=== PATIENT | female | born 1985 | race Caucasian/White ===

== ENCOUNTER → 2016-10-08 | Outpatient (CLI) | payer OTHER ==
[~2016-10-08] MED LIST: ABL10 PO; AMT50 PO; B-CO1CAP3 PO; CARB200T PO; FLUD0.1T PO; IND/25 PO; LACO50TA PO; MRLP17 PO; NRN100 PO; PRT40 PO; VENL150T33 PO
--- NOTE | 2016-10-08 14:52 | DIAGNOSTIC IMAGING REPORT ---
ABDOMINAL ULTRASOUND COMPLETE HISTORY: Abnormal lab values ABNORMAL FINDINGS IN BLOOD CHEMISTRY. COMPARISON: 03/11/2016 FINDINGS: Pancreas: The pancreas demonstrates a normal echotexture. Liver: Unremarkable. Gallbladder: Surgically removed CBD: 4 mm Kidneys: No hydronephrosis. Spleen: Normal in size. Aorta: Normal in caliber. IVC: Patent. IMPRESSION: Prior cholecystectomy. Otherwise normal study. Electronically signed by: Man Pantoja M.D. 10/08/2016 2:50 PM Dictated Date/Time: 10/08/2016 2:49 PM
== END | disposition home or self-care (01) ==
LOC: C.ULTR 07:19
PROVIDERS: ATTEND Internal Medicine Gastroenterology
DX: R79.89 Other specified abnormal findings of blood chemistry (principal)

== ENCOUNTER 2016-10-29 12:44 | Observation (INO) | payer OTHER ==
[~2016-10-29] VITALS: Ht 167.6 cm; Wt 81.3 kg
[~2016-10-29 12:44] MED LIST changes: -IND/25 PO; -LACO50TA PO; -MRLP17 PO; -PRT40 PO
[2016-10-29] MEDS ORDERED: ONDANSETRON INJ 2 MG/ML 2 ML VIAL IV STA ×2 (13:15→14:59)
[2016-10-29] MEDS ORDERED: SODIUM CHLORIDE 0.9% 1000ML 2,000 ML IV STA (13:15)
[2016-10-29] MEDS ORDERED: PROCHLORPERAZINE 5 MG/ML 2 ML VIAL IV STA (13:15)
[2016-10-29] MEDS ORDERED: DiphenhydrAMINE HCL 50 MG/ML VIAL IV STA (13:15)
--- NOTE | 2016-10-29 13:22 | EMERGENCY ROOM VISIT NOTE ---
History Report prepared by Marieibsindhu: Anum Parrish Under the Supervision of: Dr. Inderjit Guillen M.D. First contact with patient: 13:05 Chief Complaint: VOMITING Stated Complaint: VOMITING, PAIN IN SIDES Nursing Triage Summary: Pt states she's been vomiting x 1 week, having pain in back and sides from throwing up. Tegretol levels were to high, hospitalized until October 13. Keppra started in hospital, and then PO at discharge. Couldn't keep it down since she was vomiting. Vimpat started 3 days but can't keep it down. Having some twitching in hands and legs intermittently. Last diarrhea 2 days ago, no BM since. History of Present Illness The patient is a 31 year old female who presents to the Emergency Room with complaints of persistent vomiting for the past 1 week. The patient has a history of both seizures and cyclic vomiting syndrome and notes she has undergone some recent seizure medication changes. Her Tegretol levels were found to be elevated, so she was hospitalized on October 13. Keppra was started while she was in the hospital and she was prescribed it PO at discharge. She was unable to keep the Keppra down due to her recent increased vomiting. The patient also complains of increased back pain from the amount of vomiting she has experienced. She admits to some recent diarrhea, but states she has not had a BM in 2 days now. She denies any fevers or urinary symptoms. 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 A total of 10 systems reviewed and were otherwise negative. Past Medical & Surgical Medical Problems: (1) Arthritis (2) Estevez's esophagus (3) Bipolar 1 disorder (4) Cyclic vomiting syndrome (5) Fibromyalgia (6) GERD (gastroesophageal reflux disease) (7) H/o cervical disc displacement (8) Intractable vomiting (9) Nausea & vomiting (10) Seizure disorder Surgical Problems: (1) H/O colonoscopy (2) H/O EGD (3) H/O toe surgery (4) History of cholecystectomy (5) S/P cholecystectomy (6) S/P ear surgery (7) S/P tonsillectomy and adenoidectomy Family History Cancer MOTHER (skin CA) Diabetes mellitus FATHER FH: kidney disease FH: seizures Heart disease Lung disease Social History Smoking Status: Former Smoker Alcohol Use: none Drug Use: none Marital Status: single Housing Status: lives with family Occupation Status: unemployed Current/Historical Medications Scheduled Amitriptyline Hcl (Elavil), 50 MG PO HS Aripiprazole (Abilify), 20 MG PO DAILY Fludrocortisone Acetate (Fludrocortisone Acetate), 0.1 MG PO DAILY Indomethacin (Indocin), 25 MG PO DAILY Lacosamide (Vimpat), 1 TAB PO BID Venlafaxine Hcl (Venlafaxine Hcl Er), 150 MG PO BID Allergies Coded Allergies: Gluten (Verified Allergy, Unknown, unknown, 10/29/16) Promethazine (Verified Adverse Reaction, Unknown, CAUSED SEIZURE, 10/29/16) Physical Exam Vital Signs Date Time Temp Pulse Resp B/P (MAP) Pulse Ox O2 Delivery O2 Flow Rate FiO2 10/29/16 18:50 92 18 102/74 100 Room Air 10/29/16 17:56 94 20 100/61 98 Room Air 10/29/16 16:00 101 20 101/65 97 Room Air 10/29/16 14:08 98 16 104/64 96 Room Air 10/29/16 12:49 36.5 78 16 105/75 98 Room Air Physical Exam GENERAL: Patient is in no acute distress. HEENT: No acute trauma, normocephalic atraumatic, mucous membranes are dry, no nasal congestion, no scleral icterus. NECK: No stridor, no adenopathy, no meningismus, trachea is midline. LUNGS: Clear to auscultation bilaterally, no wheeze, no rhonchi, breath sounds equal. HEART: Without murmurs gallops or rubs, regular rate and rhythm. ABDOMEN: Soft, nontender, bowel sounds positive, no hernias, no peritonitis. EXTREMITIES: No cyanosis or edema, full range of motion of all the joints without pain or difficulty, no signs for acute trauma. NEUROLOGIC: Oriented x 3, no acute motor or sensory deficits, no focal weakness. SKIN: No rash, no jaundice, no diaphoresis. Medical Decision & Procedures ER Provider Diagnostic Interpretation: X-ray results as stated below per interpretation by me and the radiologist: ABDOMEN 2VIEW W/PA CHEST RTN CLINICAL HISTORY: nv pain. Nausea. COMPARISON STUDY: 03/09/2016 FINDINGS: The soft tissues, psoas shadows, renal outlines and intestinal gas pattern appear normal. There is no evidence for bowel obstruction. There is no evidence for free intraperitoneal air. No abnormal abdominal calcifications are seen. A frontal view of the chest was performed and is unremarkable. Minimal nonobstructive ileus. IMPRESSION: 1. Negative chest. 2. Minimal/mild nonobstructive ileus. Electronically signed by: Man Pantoja M.D. 10/29/2016 2:34 PM Laboratory Results 10/29/16 13:58 Red Blood Count 4.95, Mean Corpuscular Volume 86.7, Mean Corpuscular Hemoglobin 29.9, Mean Corpuscular Hemoglobin Concent 34.5, Mean Platelet Volume 9.3, Neutrophils (%) (Auto) 53.8, Lymphocytes (%) (Auto) 36.6, Monocytes (%) (Auto) 7.3, Eosinophils (%) (Auto) 1.5, Basophils (%) (Auto) 0.8, Neutrophils # (Auto) 2.13, Lymphocytes # (Auto) 1.45, Monocytes # (Auto) 0.29, Eosinophils # (Auto) 0.06, Basophils # (Auto) 0.03 10/29/16 13:58 Test 10/29/16 13:05 10/29/16 13:58 Urine Color DK YELLOW Urine Appearance TURBID (CLEAR) Urine pH 6.0 (4.5-7.5) Urine Specific [place] 1.026 (1.000-1.030) Urine Protein TRACE (NEG) Urine Glucose (UA) NEG (NEG) Urine Ketones 2+ (NEG) Urine Occult Blood 2+ (NEG) Urine Nitrite NEG (NEG) Urine Bilirubin NEG (NEG) Urine Urobilinogen NEG (NEG) Urine Leukocyte Esterase NEG (NEG) Urine WBC (Auto) 5-10 /hpf (0-5) Urine RBC (Auto) 0-4 /hpf (0-4) Urine Hyaline Casts (Auto) 10-30 /lpf (0-5) Urine Epithelial Cells (Auto) >30 /lpf (0-5) Urine Bacteria (Auto) 1+ (NEG) White Blood Count 3.96 K/uL (4.8-10.8) Red Blood Count 4.95 M/uL (4.2-5.4) Hemoglobin 14.8 g/dL (12.0-16.0) Hematocrit 42.9 % (37-47) Mean Corpuscular Volume 86.7 fL (80-100) Mean Corpuscular Hemoglobin 29.9 pg (25-34) Mean Corpuscular Hemoglobin Concent 34.5 g/dl (32-36) Platelet Count 303 K/uL (130-400) Mean Platelet Volume 9.3 fL (7.4-10.4) Neutrophils (%) (Auto) 53.8 % Lymphocytes (%) (Auto) 36.6 % Monocytes (%) (Auto) 7.3 % Eosinophils (%) (Auto) 1.5 % Basophils (%) (Auto) 0.8 % Neutrophils # (Auto) 2.13 K/uL (1.4-6.5) Lymphocytes # (Auto) 1.45 K/uL (1.2-3.4) Monocytes # (Auto) 0.29 K/uL (0.11-0.59) Eosinophils # (Auto) 0.06 K/uL (0-0.5) Basophils # (Auto) 0.03 K/uL (0-0.2) RDW Standard Deviation 40.9 fL (36.4-46.3) RDW Coefficient of Variation 12.8 % (11.5-14.5) Immature Granulocyte % (Auto) 0.0 % Immature Granulocyte # (Auto) 0.00 K/uL (0.00-0.02) Anion Gap 11.0 mmol/L (3-11) Est Creatinine Clear Calc Drug Dose 114.7 ml/min Estimated GFR () 121.4 Estimated GFR (Non- 104.7 BUN/Creatinine Ratio 7.3 (10-20) Calcium Level 8.8 mg/dl (8.5-10.1) Magnesium Level 2.3 mg/dl (1.8-2.4) Total Bilirubin 0.3 mg/dl (0.2-1) Aspartate Amino Transf (AST/SGOT) 26 U/L (15-37) Alanine Aminotransferase (ALT/SGPT) 23 U/L (12-78) Alkaline Phosphatase 187 U/L (45-117) Total Protein 7.2 gm/dl (6.4-8.2) Albumin 3.2 gm/dl (3.4-5.0) Globulin 4.0 gm/dl (2.5-4.0) Albumin/Globulin Ratio 0.8 (0.9-2) Laboratory results reviewed by me. Medications Administered Medications (Trade) Dose Ordered Sig/Tico Route Start Time Stop Time Status Last Admin Dose Admin Sodium Chloride 2,000 ml @ 999 mls/hr Q2H1M STAT IV 10/29/16 13:15 10/29/16 15:15 DC 10/29/16 14:08 999 MLS/HR Ondansetron HCl (Zofran Inj) 4 mg NOW STAT IV 10/29/16 13:15 10/29/16 13:17 DC 10/29/16 14:09 4 MG Prochlorperazine Edisylate (Compazine Inj) 10 mg NOW STAT IV 10/29/16 13:15 10/29/16 13:17 DC 10/29/16 14:09 10 MG Diphenhydramine HCl (Benadryl Inj) 50 mg NOW STAT IV 10/29/16 13:15 10/29/16 13:17 DC 10/29/16 14:09 50 MG Ondansetron HCl (Zofran Inj) 4 mg NOW STAT IV 10/29/16 14:59 10/29/16 15:00 DC 10/29/16 15:11 4 MG Lacosamide 50 mg/ Sodium Chloride 55 ml @ 55 mls/hr NOW STAT IV 10/29/16 15:57 10/29/16 16:56 DC 10/29/16 16:33 55 MLS/HR ED Course 1312: The patient was evaluated in room C2. A complete history and physical exam was performed. 1315: Benadryl 50 mg IV, Compazine 10 mg IV, Zofran 4 mg IV, NSS 2000 ml @ 999 mls/hr IV. 1545: I reevaluated the patient. She is resting comfortably. I discussed my recommendation that she remain in the hospital for further evaluation and management and she verbalized complete understanding and agreement. 1557: Lacosamide 50 mg/NSS 55 ml @ 55 mls/hr IV. 1559: Zofran 4 mg IV. 1630: I discussed the patients case with Dr. Heart, [facility] Hospitalist. The patient will be further evaluated. Medical Decision Medication Reconciliation: I attest that I have personally reviewed the patient' s current medication list. Blood Pressure Screening: Patient was found to have normal blood pressure on screening and does not require follow-up. The differential diagnoses considered include dehydration, electrolyte imbalance , anemia, viral illness, cyclic vomiting syndrome, medication reaction, UTI and bowel obstruction. There is no leukocytosis or concerning anemia. No significant electrolyte abnormality, kidney failure or hepatitis. Urinalysis does not show infection but more so contamination and dehydration. Obstruction series shows no pneumonia, free air or bowel obstruction. An ileus was noted. On exam, the patient was not febrile or toxic. The patient received IV Zofran, IV Compazine and IV Benadryl. She was given IV saline. She was still nauseated and required a second dose of IV Zofran. Her her nausea did persist and she was unable to tolerate oral intake. Given the findings of ileus, given the difficulty controlling her symptoms, I think admission/observation was warranted. She has not been able to take her regular meds including her seizure meds. I did give her a 50 mg dose of IV Vimpat, this is her current antiseizure medication. I spoke to case management , the on-call hospitalist was consulted. Consults Time Called: 1540 Consulting Physician: Dr. Heart, [facility] Hospitalist Returned Call: 1630 I discussed the patients case with Dr. Heart, [facility] Hospitalist. The patient will be further evaluated. Impression Primary Impression: Ileus Additional Impressions: Vomiting Dehydration History of seizure Scribe Attestation The scribe's documentation has been prepared under my direction and personally reviewed by me in its entirety. I confirm that the note above accurately reflects all work, treatment, procedures, and medical decision making performed by me. Departure Information Dispostion Being Evaluated By Hospitalist Referrals Mirtha Arellano M.D. (PCP) Patient Instructions My [facility] Problem Qualifiers
[2016-10-29] MEDS ORDERED: LACO50TA PO (13:23)
[2016-10-29] MEDS ORDERED: IND/25 PO (13:23)
[2016-10-29 14:07] LABS: BASO % 0.8 %; BASO ABS # 0.03 K/uL (0-0.2); COMPLETE YES; EOS % 1.5 %; HEMATOCRIT 42.9 % (37-47); LYMPH % 36.6 %; LYMPH ABS # 1.45 K/uL (1.2-3.4); MEAN CELL VOLUME 86.7 fL (80-100); MEAN CORPUSCULAR HEMOGLOBIN 29.9 pg (25-34); MEAN CORPUSCULAR HGB CONC 34.5 g/dl (32-36); MEAN PLATELET VOLUME 9.3 fL (7.4-10.4); MONO % 7.3 %; NEUT % 53.8 %; PLATELET COUNT 303 K/uL (130-400); RED BLOOD COUNT 4.95 M/uL (4.2-5.4); WHITE BLOOD COUNT 3.96 K/uL (4.8-10.8)
[2016-10-29 14:30] LABS: BUN/CREATININE RATIO 7.3 (10-20); CREATININE 0.75 mg/dl (0.60-1.20); MAGNESIUM 2.3 mg/dl (1.8-2.4); POTASSIUM 3.8 mmol/L (3.5-5.1)
[2016-10-29 14:33] LABS: ALB/GLOB RATIO 0.8 (0.9-2)
--- NOTE | 2016-10-29 14:35 | DIAGNOSTIC IMAGING REPORT ---
ABDOMEN 2VIEW W/PA CHEST RTN CLINICAL HISTORY: nv pain. Nausea. COMPARISON STUDY: 03/09/2016 FINDINGS: The soft tissues, psoas shadows, renal outlines and intestinal gas pattern appear normal. There is no evidence for bowel obstruction. There is no evidence for free intraperitoneal air. No abnormal abdominal calcifications are seen. A frontal view of the chest was performed and is unremarkable. Minimal nonobstructive ileus. IMPRESSION: 1. Negative chest. 2. Minimal/mild nonobstructive ileus. Electronically signed by: Man Pantoja M.D. 10/29/2016 2:34 PM Dictated Date/Time: 10/29/2016 2:34 PM
[2016-10-29 15:05] LABS: URINE APPEARANCE TURBID (CLEAR); URINE COLOR DK YELLOW; URINE EPITHELIAL CELL AUTO >30 /lpf (0-5); URINE NITRITE NEG (NEG); URINE SPECIFIC GRAVITY 1.026 (1.000-1.030); UROBILINOGEN NEG (NEG); ZZUR CULT IF INDIC CLEAN CATCH YES
[2016-10-29 15:15] LABS: MANUAL MICROSCOPIC REQUIRED? NO; REVIEW REQ? NO
[2016-10-29 15:16] LABS: URINE BILIRUBIN NEG (NEG)
[2016-10-29] MEDS ORDERED: SODIUM CHLORIDE 0.9% IV STA (15:57)
[2016-10-29] MEDS ORDERED: LACOSAMIDE IV STA (15:57)
[2016-10-29] MEDS ORDERED: ALUMINUM/MAGNESIUM/SIMETH (MAALOX MAX) 30 ML UDC PO PRN (16:45)
[2016-10-29] MEDS ORDERED: POLYETHYLENE (MIRALAX) 17 GM PACK PO PRN (16:45)
[2016-10-29] MEDS ORDERED: ACETAMINOPHEN 325 MG TAB PO PRN (16:45)
[2016-10-29] MEDS ORDERED: MAGNESIUM HYDROXIDE SUSP 30 ML UDC PO PRN (16:45)
[2016-10-29 17:30] LABS: CALCIUM 8.8 mg/dl (8.5-10.1)
--- NOTE | 2016-10-29 17:32 | History and Physical ---
History & Physical Date & Time of Service: Oct 29, 2016 at 16:44 Chief Complaint: Vomiting, Pain In Sides Primary Care Physician: Mirtha Arellano M.D. History of Present Illness Patient is a 31 year old female that presents with intractable vomiting. She has a history of grand mal seizures, intractable vomiting, bipolar disorder, and hypotension. She was previously admitted to [facility] for mental status changes while on Vigabatrin and was found to have a significantly elevated blood level. He was taken off of Vigabatrin and started on Keppra while in the hospital. She was on IV Zofran while receiving the Keppra so she was able to tolerate it while in the hospital. Since discharge on October 13 she has had intractable vomiting and has not been able to keep food down over the last week. She called her Neurologist in [place] on Tuesday who changed her Keppra to VIMPAT. Since starting the VIMPAT she has been unable to keep down fluids so she decided to come to the hospital here to see her GI Physician Dr. Villafuerte. She denies any recent seizures since 7 years ago, denies any shortness of breath, chest pain, cough, or fever. She does appreciated some abdominal discomfort that she attributes to vomiting. Past Medical/Surgical History Medical Problems: (1) Arthritis Status: Chronic (2) Estevez's esophagus Status: Chronic (3) Bipolar 1 disorder Status: Chronic (4) Cyclic vomiting syndrome Status: Chronic (5) Fibromyalgia Status: Chronic (6) GERD (gastroesophageal reflux disease) Status: Chronic (7) H/o cervical disc displacement Status: Chronic (8) Nausea & vomiting Status: Resolved (9) Seizure disorder Status: Chronic Surgical Problems: (1) H/O colonoscopy Status: Chronic (2) H/O EGD Status: Chronic (3) H/O toe surgery Status: Chronic (4) History of cholecystectomy Status: Resolved (5) S/P cholecystectomy Status: Resolved (6) S/P ear surgery Status: Chronic (7) S/P tonsillectomy and adenoidectomy Status: Chronic Family History Cancer MOTHER (skin CA) Diabetes mellitus FATHER FH: kidney disease FH: seizures Heart disease Lung disease Social History Smoking Status: Former Smoker Drug Use: none Marital Status: single Occupational Status: unemployed Immunizations History of Influenza Vaccine: No Allergies Coded Allergies: Gluten (Verified Allergy, Unknown, unknown, 10/29/16) Promethazine (Verified Adverse Reaction, Unknown, CAUSED SEIZURE, 10/29/16) Home Medications Scheduled Amitriptyline Hcl (Elavil), 50 MG PO HS Aripiprazole (Abilify), 20 MG PO DAILY Fludrocortisone Acetate (Fludrocortisone Acetate), 0.1 MG PO DAILY Indomethacin (Indocin), 25 MG PO DAILY Lacosamide (Vimpat), 1 TAB PO BID Venlafaxine Hcl (Venlafaxine Hcl Er), 150 MG PO BID Review of Systems See HPI for pertinent positives and negatives. A total of ten systems were reviewed and were otherwise negative. Constitutional: No fever, No chills, No weight loss Respiratory: No cough, No sputum, No shortness of breath Cardiovascular: No chest pain Abdomen: + nausea, + vomiting, No diarrhea, No constipation Musculoskeletal: No muscle pain Genitourinary - Female: No dysuria Neurologic: No numbness/tingling Physical Exam Vital Signs Date Time Temp Pulse Resp B/P (MAP) Pulse Ox O2 Delivery O2 Flow Rate FiO2 10/29/16 16:00 101 20 101/65 97 Room Air 10/29/16 14:08 98 16 104/64 96 Room Air 10/29/16 12:49 36.5 78 16 105/75 98 Room Air General Appearance: WD/WN, no apparent distress Head: normocephalic, atraumatic Neck: supple, trachea midline Respiratory/Chest: chest non-tender, lungs clear, normal breath sounds Cardiovascular: regular rate, rhythm, no edema, no gallop Abdomen/GI: normal bowel sounds, non tender, soft Back: normal inspection, no CVA tenderness Extremities/Musculoskelatal: normal inspection, no calf tenderness Neurologic/Psych: no motor/sensory deficits, alert, oriented x 3 Diagnostics Laboratory Results Results Past 24 Hours Test 10/29/16 13:05 10/29/16 13:58 Range/Units Urine Color DK YELLOW Urine Appearance TURBID CLEAR Urine pH 6.0 4.5-7.5 Urine Specific [place] 1.026 1.000-1.030 Urine Protein TRACE NEG Urine Glucose (UA) NEG NEG Urine Ketones 2+ NEG Urine Occult Blood 2+ NEG Urine Nitrite NEG NEG Urine Bilirubin NEG NEG Urine Urobilinogen NEG NEG Urine Leukocyte Esterase NEG NEG Urine WBC (Auto) 5-10 0-5 /hpf Urine RBC (Auto) 0-4 0-4 /hpf Urine Hyaline Casts (Auto) 10-30 0-5 /lpf Urine Epithelial Cells (Auto) >30 0-5 /lpf Urine Bacteria (Auto) 1+ NEG White Blood Count 3.96 4.8-10.8 K/uL Red Blood Count 4.95 4.2-5.4 M/uL Hemoglobin 14.8 12.0-16.0 g/dL Hematocrit 42.9 37-47 % Mean Corpuscular Volume 86.7 80-100 fL Mean Corpuscular Hemoglobin 29.9 25-34 pg Mean Corpuscular Hemoglobin Concent 34.5 32-36 g/dl Platelet Count 303 130-400 K/uL Mean Platelet Volume 9.3 7.4-10.4 fL Neutrophils (%) (Auto) 53.8 % Lymphocytes (%) (Auto) 36.6 % Monocytes (%) (Auto) 7.3 % Eosinophils (%) (Auto) 1.5 % Basophils (%) (Auto) 0.8 % Neutrophils # (Auto) 2.13 1.4-6.5 K/uL Lymphocytes # (Auto) 1.45 1.2-3.4 K/uL Monocytes # (Auto) 0.29 0.11-0.59 K/uL Eosinophils # (Auto) 0.06 0-0.5 K/uL Basophils # (Auto) 0.03 0-0.2 K/uL RDW Standard Deviation 40.9 36.4-46.3 fL RDW Coefficient of Variation 12.8 11.5-14.5 % Immature Granulocyte % (Auto) 0.0 % Immature Granulocyte # (Auto) 0.00 0.00-0.02 K/uL Sodium Level 140 136-145 mmol/L Potassium Level 3.8 3.5-5.1 mmol/L Chloride Level 106 98-107 mmol/L Carbon Dioxide Level 23 21-32 mmol/L Anion Gap 11.0 3-11 mmol/L Blood Urea Nitrogen 6 7-18 mg/dl Creatinine 0.75 0.60-1.20 mg/dl Est Creatinine Clear Calc Drug Dose 114.7 ml/min Estimated GFR () 121.4 Estimated GFR (Non- 104.7 BUN/Creatinine Ratio 7.3 10-20 Random Glucose 79 70-99 mg/dl Magnesium Level 2.3 1.8-2.4 mg/dl Total Bilirubin 0.3 0.2-1 mg/dl Aspartate Amino Transf (AST/SGOT) 26 15-37 U/L Alanine Aminotransferase (ALT/SGPT) 23 12-78 U/L Alkaline Phosphatase 187 45-117 U/L Total Protein 7.2 6.4-8.2 gm/dl Albumin 3.2 3.4-5.0 gm/dl Globulin 4.0 2.5-4.0 gm/dl Albumin/Globulin Ratio 0.8 0.9-2 Microbiology Results 10/29/16 Urine Culture, Received Pending Impression Assessment and Plan Patient is a 31 year old female that presents with intractable vomiting 1) Intractable Vomiting - Zofran 4mg IV q6h - Compazine prior to morning medication administration - Consult GI - Dr. Villafuerte - IV D5 NS + 20meq at 125ml/hr maintenance dose - BMP for tomorrow morning 2) Grand-Mal Seizures - Vimpat IV 50mg Daily - Her neurologist had placed her on 50mg PO BID but has been unable to keep that down with the vomiting. I have changed her dose to Vimpat 50mg IV daily until she is able to perform PO intake 3) Bipolar Disorder - Resume home Elavil 50mg PO - Resume home Abilify 10mg PO daily - Resume home Venlafaxine 150mg PO BID 4) Hypotension - Resume home Fludrocortisone 0.1mg PO Daily 5) DVT - SCDs 6) Code Status - Full Resuscitation Resident Physician Supervision Note: I was present with Dr. Real during the history and exam. I discussed the case with the resident and agree with the findings and plan as documented in the note. Any exceptions or clarifications are listed here: 31 y/o F Hx seizures, Bipolar disease recent D/C presenting with intactable N/ V - occurs frequently OE AAO x 3 S1,2 R CTAB NT, ND No deficits P: Change seizure meds to IV GI consult IVF, NPO, antiemetics as needed Documented By: Sebastien Heart Level of Care Med/Surg Resuscitation Status FULL RESUSCITATION
[2016-10-29] MEDS ORDERED: IV FLUIDS COMPLETED PRN (19:15)
[2016-10-29 19:31] VITALS: BP 101/69; PULSE 93; TEMP 36.5; O2SAT 98
[2016-10-29 19:35] VITALS: BP 101/69; PULSE 93; TEMP 36.5; O2SAT 98; Ht 167.6 cm; Wt 81.3 kg
[2016-10-29] MEDS: D5NSS + 20MEQ KCL 1,000 ML IV SCH (20:02)
[2016-10-29] MEDS: LACOSAMIDE 50 MG TAB PO SCH (20:39)
[2016-10-29] MEDS: VENLAFAXINE HCL XR 150 MG CAPXR PO SCH (20:39)
[2016-10-29] MEDS ORDERED: AMITRIPTYLINE HCL 50 MG TAB PO SCH (21:00)
[2016-10-29] MEDS: ONDANSETRON INJ 2 MG/ML 2 ML VIAL IV PRN (21:48)
[2016-10-30] VITALS (8 sets, daily range): BP systolic 89–105; BP diastolic 59–70; PULSE 92–95; TEMP 36.4–36.7; O2SAT 95–96
[2016-10-30] MEDS: D5NSS + 20MEQ KCL 1,000 ML IV SCH ×3 (04:07→19:47)
[2016-10-30] MEDS: ONDANSETRON INJ 2 MG/ML 2 ML VIAL IV PRN ×4 (04:09→23:34)
[2016-10-30 07:22] LABS: BUN/CREATININE RATIO 10.8 (10-20); CALCIUM 7.5 mg/dl (8.5-10.1); CREATININE 0.55 mg/dl (0.60-1.20); POTASSIUM 3.8 mmol/L (3.5-5.1)
[2016-10-30] MEDS: PROCHLORPERAZINE INJ 5 MG in SYRINGE 4 ML IV PRN (08:04)
[2016-10-30] MEDS: FLUDROCORTISONE ACETATE 0.1 MG TAB PO SCH (09:00)
[2016-10-30] MEDS: VENLAFAXINE HCL XR 150 MG CAPXR PO SCH ×2 (09:00→19:49)
[2016-10-30] MEDS: LACOSAMIDE 50 MG TAB PO SCH ×2 (09:00→20:30)
[2016-10-30] MEDS: ARIPIprazole TAB 10 MG TAB PO SCH (09:00)
[2016-10-30] MEDS: INDOMETHACIN 25 MG CAP PO SCH (09:00)
[2016-10-30] MEDS ORDERED: KETOROLAC TROMETHAMINE 30 MG/ML VIAL IV STA (11:28)
--- NOTE | 2016-10-30 14:57 | Gastroenterology Progress Note ---
Progress Note Date of Service: Oct 30, 2016 Subjective Pt evaluation today including: conversation w/ patient, conversation w/ family (boyfriend), physical exam, chart review, lab review, review of studies, review of inpatient medication list Medications Current Inpatient Medications Medications (Trade) Dose Ordered Sig/Tico Route Start Time Stop Time Status Last Admin Dose Admin Acetaminophen (Tylenol Tab) 650 mg Q4H PRN PO 10/29/16 16:45 11/28/16 16:44 Al Hydrox/Mg Hydrox/Simethicone (Maalox Max Susp) 15 ml Q4H PRN PO 10/29/16 16:45 11/28/16 16:44 Magnesium Hydroxide (Milk Of Magnesia Susp) 30 ml Q6H PRN PO 10/29/16 16:45 11/28/16 16:44 Polyethylene (Miralax Powder Packet) 17 gm DAILY PRN PO 10/29/16 16:45 11/28/16 16:44 Ondansetron HCl (Zofran Inj) 4 mg Q6H PRN IV 10/29/16 16:45 11/28/16 16:44 10/30/16 09:52 4 MG Amitriptyline HCl (Elavil Tab) 50 mg HS PO 10/29/16 21:00 11/28/16 20:59 Aripiprazole (Abilify Tab) 20 mg DAILY PO 10/30/16 09:00 11/29/16 08:59 Fludrocortisone Acetate (Florinef Tab) 0.1 mg DAILY PO 10/30/16 09:00 11/29/16 08:59 Indomethacin (Indocin Cap) 25 mg DAILY PO 10/30/16 09:00 11/29/16 08:59 Lacosamide (Vimpat Tab) 50 mg BID PO 10/29/16 21:00 11/28/16 20:59 Venlafaxine HCl (effeXOR EXTENDED REL CAP) 150 mg BID PO 10/29/16 21:00 11/28/16 20:59 Potassium Chloride/Dextrose/ Sod Cl 1,000 ml @ 125 mls/hr Q8H IV 10/29/16 20:00 11/28/16 19:59 10/30/16 11:57 125 MLS/HR Prochlorperazine Edisylate 5 mg/ Syringe 5 ml @ 1 mls/min DAILY@0800 PRN IV 10/29/16 17:00 11/28/16 16:59 10/30/16 08:04 1 MLS/MIN Miscellaneous (Iv Fluids Completed) 1 ea PRN PRN N/A 10/29/16 19:15 10/29/17 19:14 Objective Vital Signs Date Time Temp Pulse Resp B/P (MAP) Pulse Ox O2 Delivery O2 Flow Rate FiO2 10/30/16 09:09 95 Room Air 10/30/16 08:12 95/64 (74) 10/30/16 08:00 95 Room Air 10/30/16 07:49 89/59 (69) 10/30/16 07:46 36.7 95 14 90/60 (70) 95 Room Air 10/30/16 00:00 Room Air 10/29/16 20:00 Room Air 10/29/16 19:35 36.5 93 18 101/69 98 Room Air 10/29/16 19:31 36.5 93 18 101/69 (80) 98 Room Air 10/29/16 18:50 92 18 102/74 100 Room Air 10/29/16 17:56 94 20 100/61 98 Room Air 10/29/16 16:00 101 20 101/65 97 Room Air Laboratory Results Last 24 Hours Test 10/30/16 06:53 10/30/16 10:58 Sodium Level 146 mmol/L Potassium Level 3.8 mmol/L Chloride Level 115 mmol/L Carbon Dioxide Level 22 mmol/L Anion Gap 9.0 mmol/L Blood Urea Nitrogen 6 mg/dl Creatinine 0.55 mg/dl Est Creatinine Clear Calc Drug Dose 156.4 ml/min Estimated GFR () 142.8 Estimated GFR (Non- 123.2 BUN/Creatinine Ratio 10.8 Random Glucose 99 mg/dl Calcium Level 7.5 mg/dl Assessment and Plan GI consult dictated. Job [id number] nausea and vomiting---diagnosed with cyclic vomiting syndrome by [facility] at [place] 09/2015--fewer hospitalizations since starting on Elavil 50 mg qhs. Increase Elavil to 75 mg qhs Barretts esophagus---Start Protonix bid hx of superficial gastric ulcers on EGD 07/2014--PPI Elevated Heptocarboxyl porphyrin on 24 hour urine collection--likely not clinically significant but [facility] recommended repeat 24 hour urine for porphobilinogen (PBG) and porphyrins and fecal fractionated porphyrin during an attack of N/V so that has been ordered. Last EGD 12/2014 and with hx of gastric ulceration reasonable to do an EGD Tuesday if still inpatient or if DCed then do as outpt.
--- NOTE | 2016-10-30 15:48 | Progress Note ---
Subjective Date of Service: Oct 30, 2016. Subjective pt relates significant vomiting and refuses po meds as feels they will make her vomit, despite a history of vomiting and decreased po intake her admission chemisty panel does not show elevated bun, Cr or depressed potassium, Upon discussion pt states her EEG shows persistent spikes will obtain this and neuro consult from Dr Ann in [facility] and compare, until then will treat symptoms and continue IV vimpat Problem List Medical Problems: (1) Dehydration Status: Acute (2) Dehydration Status: Acute (3) History of seizure Status: Acute (4) Ileus Status: Acute (5) Left lower lobe pneumonia Status: Acute (6) Nausea, vomiting, and diarrhea Status: Acute (7) Seizure Status: Acute (8) Upper abdominal pain Status: Acute (9) Vomiting Status: Acute (10) Vomiting Status: Acute Review of Systems Constitutional: + weakness, + fatigue, No fever, No chills Cardiac: No chest pain, No edema Abdomen: + pain, + nausea, + vomiting, No diarrhea Musculoskeletal: No joint pain, No muscle pain, No swelling Female : No dysuria, No urinary frequency Psychiatric: + depression symptoms, + anxiety Objective Vital Signs Date Time Temp Pulse Resp B/P (MAP) Pulse Ox O2 Delivery O2 Flow Rate FiO2 10/30/16 08:12 95/64 (74) 10/30/16 07:49 89/59 (69) 10/30/16 07:46 36.7 95 14 90/60 (70) 95 Room Air 10/30/16 00:00 Room Air 10/29/16 20:00 Room Air 10/29/16 19:35 36.5 93 18 101/69 98 Room Air 10/29/16 19:31 36.5 93 18 101/69 (80) 98 Room Air 10/29/16 18:50 92 18 102/74 100 Room Air 10/29/16 17:56 94 20 100/61 98 Room Air 10/29/16 16:00 101 20 101/65 97 Room Air 10/29/16 14:08 98 16 104/64 96 Room Air 10/29/16 12:49 36.5 78 16 105/75 98 Room Air Physical Exam General Appearance: WD/WN, + mild distress Neck: supple, no JVD Respiratory/Chest: chest non-tender, lungs clear, normal breath sounds Cardiovascular: regular rate, rhythm, no murmur Abdomen: normal bowel sounds, soft, no organomegaly, no pulsatile mass, + guarding, + tenderness Extremities: no pedal edema, no calf tenderness Neurologic/Psychiatric: alert, normal mood/affect, oriented x 3 Laboratory Results Last 24 Hours Test 10/29/16 13:05 10/29/16 13:58 10/30/16 06:53 Urine Color DK YELLOW Urine Appearance TURBID Urine pH 6.0 Urine Specific [place] 1.026 Urine Protein TRACE Urine Glucose (UA) NEG Urine Ketones 2+ Urine Occult Blood 2+ Urine Nitrite NEG Urine Bilirubin NEG Urine Urobilinogen NEG Urine Leukocyte Esterase NEG Urine WBC (Auto) 5-10 /hpf Urine RBC (Auto) 0-4 /hpf Urine Hyaline Casts (Auto) 10-30 /lpf Urine Epithelial Cells (Auto) >30 /lpf Urine Bacteria (Auto) 1+ White Blood Count 3.96 K/uL Red Blood Count 4.95 M/uL Hemoglobin 14.8 g/dL Hematocrit 42.9 % Mean Corpuscular Volume 86.7 fL Mean Corpuscular Hemoglobin 29.9 pg Mean Corpuscular Hemoglobin Concent 34.5 g/dl Platelet Count 303 K/uL Mean Platelet Volume 9.3 fL Neutrophils (%) (Auto) 53.8 % Lymphocytes (%) (Auto) 36.6 % Monocytes (%) (Auto) 7.3 % Eosinophils (%) (Auto) 1.5 % Basophils (%) (Auto) 0.8 % Neutrophils # (Auto) 2.13 K/uL Lymphocytes # (Auto) 1.45 K/uL Monocytes # (Auto) 0.29 K/uL Eosinophils # (Auto) 0.06 K/uL Basophils # (Auto) 0.03 K/uL RDW Standard Deviation 40.9 fL RDW Coefficient of Variation 12.8 % Immature Granulocyte % (Auto) 0.0 % Immature Granulocyte # (Auto) 0.00 K/uL Sodium Level 140 mmol/L 146 mmol/L Potassium Level 3.8 mmol/L 3.8 mmol/L Chloride Level 106 mmol/L 115 mmol/L Carbon Dioxide Level 23 mmol/L 22 mmol/L Anion Gap 11.0 mmol/L 9.0 mmol/L Blood Urea Nitrogen 6 mg/dl 6 mg/dl Creatinine 0.75 mg/dl 0.55 mg/dl Est Creatinine Clear Calc Drug Dose 114.7 ml/min 156.4 ml/min Estimated GFR () 121.4 142.8 Estimated GFR (Non- 104.7 123.2 BUN/Creatinine Ratio 7.3 10.8 Random Glucose 79 mg/dl 99 mg/dl Calcium Level 8.8 mg/dl 7.5 mg/dl Magnesium Level 2.3 mg/dl Total Bilirubin 0.3 mg/dl Aspartate Amino Transf (AST/SGOT) 26 U/L Alanine Aminotransferase (ALT/SGPT) 23 U/L Alkaline Phosphatase 187 U/L Total Protein 7.2 gm/dl Albumin 3.2 gm/dl Globulin 4.0 gm/dl Albumin/Globulin Ratio 0.8 Assessment and Plan 31 F with intractable vomiting associated with seizure disorder Vomiting- Zofran 4mg IV q6h - Compazine prior to morning medication administration - Consult GI - Dr. Villafuerte he is discussion cyclic vomiting disorder, check urine tox screen Grand-Mal Seizures- Vimpat IV 50mg Daily - Her neurologist had placed her on 50mg PO BID but since she is vomiting, Vimpat 50mg IV daily until able to take PO, obtain old records from [facility], Bipolar Disorder Elavil 50mg PO Abilify 10mg PO daily Venlafaxine 150mg PO BID Hypotension Fludrocortisone 0.1mg PO Daily Pt will have aguilar placed to record urine output DVT SCDs Code Status - Full Resuscitation
[2016-10-30] MEDS: PANTOprazole SOD 40 MG TAB PO SCH ×2 (16:08→19:50)
--- NOTE | 2016-10-30 16:08 | GASTROINTESTINAL CONSULTATION ---
DATE OF CONSULTATION: 10/30/2016 REASON FOR CONSULTATION: Nausea, vomiting. REQUESTING PHYSICIAN: Dr. Woodard. HISTORY OF PRESENT ILLNESS: The patient has a longstanding history of vomiting syndrome. She was seen by me in the office in the past. She was seen at [facility] in [place] on 09/23/2015. At that time she was diagnosed with probable cyclic vomiting syndrome and Elavil 50 mg nightly prescribed. She had urine porphyrins which showed increased heptacarboxyl porphyrins of unclear significance. It was recommended if she had an attack of nausea, vomiting again, they will repeat the 24-hour urine porphyrins and also get a porphobilinogen and a fecal fractionated porphyrin screen. She states that prior to being on the Elavil she would probably have at least 6 episodes a year of needing hospitalization, but over the last year has only needed about 3 of those, so there has been some improvement. Most recently she had problems with high Tergretol levels needing to be hospitalized for disorientation, then she was switched to I believe Keppra and had nausea and vomiting on that and switched over to Vimpat, but continued to have nausea, vomiting, was admitted to [facility]. No bloody stool or black stool. She had recent diarrhea, but resolved with no bowel movements for the last couple of days. No dysphagia. Lost may be about 10 pounds over the last couple of weeks. No fever. Does have nausea and vomiting as above, has some abdominal pain just with the vomiting. Thinks that her acid situation is worse recently. ALLERGIES: GLUTEN AND PROMETHAZINE. MEDICATIONS ON ADMISSION: Listed include amitriptyline, Abilify, fludrocortisone, Indocin, Vimpat and venlafaxine. She says she is on Prevacid orally dissolving at home, but that was not on her list. PROBLEMS AND SURGERIES: Seizure disorder, bipolar, history of Estevez's esophagus, fibromyalgia, GERD, cholecystectomy, she has had a T&A, she has had toe surgery. FAMILY HISTORY: Mother with skin cancer. SOCIAL HISTORY: Tobacco, former smoker. Ethanol negative. REVIEW OF SYSTEMS: Constitutional, eyes, ears, nose, mouth, throat, cardiovascular, respiratory, genitourinary, musculoskeletal, integumentary, neurologic, psychiatric, endocrine, and hematologic negative except as noted above. PHYSICAL EXAMINATION: GENERAL: Female, appears her stated age, in no acute distress. VITAL SIGNS: Most recent vital signs on chart temperature 95/64, O2 saturation 95% on room air, respirations 14, temperature 36.7. EYES: Conjunctivae and lids normal. ENT: Oropharynx clear. NECK: Without obvious mass or thyroid enlargement. RESPIRATORY: Normal effort. Clear to anterior auscultation. CARDIOVASCULAR: Regular rate and rhythm. EXTREMITIES: Without edema. ABDOMEN: Positive bowel sounds, soft, nontender, no obvious organomegaly or masses appreciated. RECTAL: Not done. LYMPH: No obvious neck or groin nodes. MUSCULOSKELETAL: Digits and nails normal. SKIN: Without obvious rash or induration. NEUROLOGIC: Cranial nerves intact. Sensation intact. PSYCHIATRIC: Recent and remote memory good. Insight and judgment good. LABORATORY DATA: On 08/02/2014 she had an EGD for Estevez's showed some short segment Estevez's path consistent with Estevez's. Had 2 superficial gastric ulcers. 12/30/2014 EGD chronic gastritis. 06/2009, colonoscopy with TI, hemorrhoids. She is seen in most recent in consultation of 10/13/[address] Deleon as an outpatient referral starting for workup of elevated alkaline phosphatase which has actually been rather chronic, noted back in 02/2016. He thought maybe secondary to medication but serologies was ordered, but I do not see any of those back. This admission abdomen 2-view mild obstructive ileus. CBC: White count slightly low at 3.96, CMP, alkaline phosphatase 187. UA 5-[address] scan of the abdomen 08/10/2016 left corpus luteal cyst, status post cholecystectomy. An abdominal ultrasound 10/08/2016 status post cholecystectomy. IMPRESSION AND PLAN: 1. Nausea and vomiting, possibly from cyclic vomiting syndrome. She has done actually better overall on Elavil 50 mg at bedtime. Recommended to increase that to 75 mg at bedtime. 2. Estevez's esophagus. She says she is on Prevacid at home, I am going to start Protonix b.i.d. as an inpatient. 3. History of superficial gastric ulcers noted on EGD 08/02/2014. PPI as above. 4. Elevated heptacarboxyl porphyrins on a 24-hour urine collection. Repeat 24-hour urine collection for porphyrins PBG, also fecal fractionated porphyrin. Her last EGD I see was 12/2014 with history of gastric ulceration in the past. For this reason we will do an EGD Tuesday if still an inpatient or if discharged then do as an outpatient. [facility]
[2016-10-30] MEDS ORDERED: LORAZEPAM 2 MG/ML 1 ML VIAL IV PRN ×2 (18:30)
[2016-10-30 18:41] LABS: BENZODIAZEPINE, URINE NEG (NEG); COCAINE,URINE NEG (NEG); PHENCYCLIDINE, URINE NEG (NEG)
[2016-10-30] MEDS: LORAZEPAM INJ 1 MG in SYRINGE 0.5 ML IV PRN (19:48)
[2016-10-30] MEDS: SCOPOLAMINE 1.5 MG TDSY TD SCH (19:48)
[2016-10-30] MEDS: AMITRIPTYLINE HCL 50 MG TAB PO SCH (19:49)
[2016-10-30] MEDS: CHECK SCOPOLAMINE PATCH PLACEMENT SCH (23:39)
[2016-10-31] MEDS: LORAZEPAM INJ 1 MG in SYRINGE 0.5 ML IV PRN ×4 (00:50→22:10)
[2016-10-31] MEDS ORDERED: PRAMIPEXOLE DIHYDROCHLORIDE 0.25MG TAB PO PRN (01:45)
[2016-10-31] MEDS: D5NSS + 20MEQ KCL 1,000 ML IV SCH ×3 (03:53→21:34)
[2016-10-31 07:55] VITALS: BP 164/68; PULSE 97; TEMP 36.4; O2SAT 95
[2016-10-31 08:00] VITALS: O2SAT 95
[2016-10-31] MEDS: CHECK SCOPOLAMINE PATCH PLACEMENT SCH ×2 (08:00→16:26)
[2016-10-31] MEDS: ARIPIprazole TAB 10 MG TAB PO SCH (08:31)
[2016-10-31] MEDS: INDOMETHACIN 25 MG CAP PO SCH (08:31)
[2016-10-31] MEDS: PANTOprazole SOD 40 MG TAB PO SCH ×2 (08:32→21:37)
[2016-10-31] MEDS: FLUDROCORTISONE ACETATE 0.1 MG TAB PO SCH (08:32)
[2016-10-31] MEDS: VENLAFAXINE HCL XR 150 MG CAPXR PO SCH ×2 (08:33→21:37)
[2016-10-31] MEDS: LACOSAMIDE 50 MG TAB PO SCH ×2 (08:33→22:10)
[2016-10-31] MEDS: PROCHLORPERAZINE INJ 5 MG in SYRINGE 4 ML IV PRN ×2 (09:05→21:34)
[2016-10-31] MEDS: ONDANSETRON INJ 2 MG/ML 2 ML VIAL IV PRN ×2 (10:20→16:35)
--- NOTE | 2016-10-31 13:19 | Gastroenterology Progress Note ---
Progress Note Date of Service: Oct 31, 2016 Subjective Pt evaluation today including: conversation w/ patient, conversation w/ family (boyfriend), physical exam, chart review, lab review, review of studies, review of inpatient medication list CC f/u n/v HPI Able to tolerate only a small amount of solid food today. Has R sided abd pain she attributes to her past vomiting. Review of Systems Respiratory: No shortness of breath Cardiac: No chest pain Medications Current Inpatient Medications Medications (Trade) Dose Ordered Sig/Tico Route Start Time Stop Time Status Last Admin Dose Admin Acetaminophen (Tylenol Tab) 650 mg Q4H PRN PO 10/29/16 16:45 11/28/16 16:44 Al Hydrox/Mg Hydrox/Simethicone (Maalox Max Susp) 15 ml Q4H PRN PO 10/29/16 16:45 11/28/16 16:44 10/31/16 00:51 15 ML Magnesium Hydroxide (Milk Of Magnesia Susp) 30 ml Q6H PRN PO 10/29/16 16:45 11/28/16 16:44 Polyethylene (Miralax Powder Packet) 17 gm DAILY PRN PO 10/29/16 16:45 11/28/16 16:44 Ondansetron HCl (Zofran Inj) 4 mg Q6H PRN IV 10/29/16 16:45 11/28/16 16:44 10/31/16 10:20 4 MG Aripiprazole (Abilify Tab) 20 mg DAILY PO 10/30/16 09:00 11/29/16 08:59 10/31/16 08:31 20 MG Fludrocortisone Acetate (Florinef Tab) 0.1 mg DAILY PO 10/30/16 09:00 11/29/16 08:59 10/31/16 08:32 0.1 MG Indomethacin (Indocin Cap) 25 mg DAILY PO 10/30/16 09:00 11/29/16 08:59 10/31/16 08:31 25 MG Lacosamide (Vimpat Tab) 50 mg BID PO 10/29/16 21:00 11/28/16 20:59 10/31/16 08:33 50 MG Venlafaxine HCl (effeXOR EXTENDED REL CAP) 150 mg BID PO 10/29/16 21:00 11/28/16 20:59 10/31/16 08:33 150 MG Potassium Chloride/Dextrose/ Sod Cl 1,000 ml @ 125 mls/hr Q8H IV 10/29/16 20:00 11/28/16 19:59 10/31/16 11:39 125 MLS/HR Prochlorperazine Edisylate 5 mg/ Syringe 5 ml @ 1 mls/min DAILY@0800 PRN IV 10/29/16 17:00 11/28/16 16:59 10/31/16 09:05 1 MLS/MIN Miscellaneous (Iv Fluids Completed) 1 ea PRN PRN N/A 10/29/16 19:15 10/29/17 19:14 Amitriptyline HCl (Elavil Tab) 75 mg HS PO 10/30/16 21:00 11/28/16 20:59 10/30/16 19:49 75 MG Pantoprazole Sodium (Protonix Tab) 40 mg BID PO 10/30/16 15:00 11/29/16 14:59 10/31/16 08:32 40 MG Scopolamine (Transderm-Scop Patch) 1.5 mg Q72H TD 10/30/16 18:30 11/29/16 18:29 10/30/16 19:48 1.5 MG Miscellaneous (Remove Transderm-Scop Patch) 1 ea Q72H N/A 11/02/16 18:30 12/02/16 18:29 Miscellaneous Information (Check Scopolamine Patch Placement) 1 ea QS N/A 10/31/16 00:00 11/30/16 00:00 10/31/16 08:00 1 EA Lorazepam (Ativan Inj) 0.5 mg Q4H PRN IV 10/30/16 18:30 11/29/16 18:29 Lorazepam (Ativan Inj) 1 mg Q4H PRN IV 10/30/16 18:30 11/29/16 18:29 Lorazepam 1 mg/ Syringe 1 ml @ 1 mls/min Q4H PRN IV 10/30/16 19:45 11/29/16 19:44 10/31/16 09:05 1 MLS/MIN Lorazepam 0.5 mg/ Syringe 1 ml @ 1 mls/min Q4H PRN IV 10/30/16 19:45 11/29/16 19:44 Objective Vital Signs Date Time Temp Pulse Resp B/P (MAP) Pulse Ox O2 Delivery O2 Flow Rate FiO2 10/31/16 08:00 95 Room Air 10/31/16 07:55 36.4 97 16 164/68 (100) 95 Room Air 10/31/16 00:00 Room Air 10/30/16 22:54 36.4 95 16 105/70 (82) 96 Room Air 10/30/16 16:12 96 Room Air 10/30/16 15:39 36.5 92 12 92/64 (73) 96 Room Air Physical Exam General Appearance: WD/WN, no apparent distress Respiratory/Chest: normal breath sounds, no respiratory distress Cardiovascular: no edema Abdomen: normal bowel sounds, non tender, soft, no organomegaly Laboratory Results Last 24 Hours Test 10/30/16 15:33 10/30/16 17:55 Urine Opiates Screen NEG Urine Methadone, Qualitative NEG Urine Barbiturates NEG Urine Phencyclidine (PCP) Level NEG Ur Amphetamine/Methamphetamine NEG MDMA (Ecstasy) Screen NEG Urine Benzodiazepines Screen NEG Urine Cocaine Metabolite NEG Urine Marijuana (THC) NEG Assessment and Plan nausea and vomiting---diagnosed with cyclic vomiting syndrome by [facility] at [place] 09/2015--fewer hospitalizations since starting on Elavil 50 mg qhs. Elavil now at 75 mg qhs Barretts esophagus--- Protonix bid hx of superficial gastric ulcers on EGD 07/2014--PPI Elevated Heptocarboxyl porphyrin on 24 hour urine collection--likely not clinically significant but [facility] recommended repeat 24 hour urine for porphobilinogen (PBG) and porphyrins and fecal fractionated porphyrin during an attack of N/V so that has been ordered. urine cx pos defer to DR Woodard who states likely a contaminant EGD tomorrow to evaulate for PUD I am going off service today at 1700. Dr Craft assuming care then.
--- NOTE | 2016-10-31 13:26 | Progress Note ---
Subjective Date of Service: Oct 31, 2016. Subjective pt with persistent vomiting, diagnosis of cyclic vomiting syndrome, found to have incidental Gardnerella in her urine, she has persistent nausea, mildly helped by transderm scope Problem List Medical Problems: (1) Dehydration Status: Acute (2) Dehydration Status: Acute (3) History of seizure Status: Acute (4) Ileus Status: Acute (5) Left lower lobe pneumonia Status: Acute (6) Nausea, vomiting, and diarrhea Status: Acute (7) Seizure Status: Acute (8) Upper abdominal pain Status: Acute (9) Vomiting Status: Acute (10) Vomiting Status: Acute Review of Systems Constitutional: + weakness, + fatigue, No fever, No chills Respiratory: No cough, No sputum, No shortness of breath, No dyspnea on exertion Cardiac: No chest pain, No orthopnea, No edema Abdomen: + pain, + nausea, No vomiting, No diarrhea Female : + problem reported (urinary retention), No dysuria, No urinary frequency, No hematuria, No incontinence Objective Vital Signs Date Time Temp Pulse Resp B/P (MAP) Pulse Ox O2 Delivery O2 Flow Rate FiO2 10/31/16 00:00 Room Air 10/30/16 22:54 36.4 95 16 105/70 (82) 96 Room Air 10/30/16 16:12 96 Room Air 10/30/16 15:39 36.5 92 12 92/64 (73) 96 Room Air 10/30/16 09:09 95 Room Air 10/30/16 08:12 95/64 (74) 10/30/16 08:00 95 Room Air 10/30/16 07:49 89/59 (69) Physical Exam General Appearance: WD/WN, + mild distress Eyes: PERRL, EOMI Neck: supple, thyroid normal Respiratory/Chest: chest non-tender, lungs clear, no accessory muscle use Cardiovascular: regular rate, rhythm, no murmur Abdomen: normal bowel sounds, soft, no organomegaly, + tenderness Extremities: no pedal edema, no calf tenderness Neurologic/Psychiatric: alert, oriented x 3 Laboratory Results Last 24 Hours Test 10/30/16 15:33 10/30/16 17:55 Urine Opiates Screen NEG Urine Methadone, Qualitative NEG Urine Barbiturates NEG Urine Phencyclidine (PCP) Level NEG Ur Amphetamine/Methamphetamine NEG MDMA (Ecstasy) Screen NEG Urine Benzodiazepines Screen NEG Urine Cocaine Metabolite NEG Urine Marijuana (THC) NEG Assessment and Plan 31 F with intractable vomiting associated with seizure disorder, previously diagnosed with cyclic vomiting syndrome at [facility] [facility], incidental asymptomatic, gardnarella uti, Vomiting- Zofran 4mg IV q6h - Compazine prior to morning medication administration, transderm scop and ativan prn - Consult GI - Dr. Villafuerte he is discussion cyclic vomiting disorder, urine tox screen negative, for EGD 11/01, ordered repeat porphyrins, is on iv dextrose as cardohydrate load to attempt to reduce sx, consider Hemin treatment if porphyria is diagnosed Grand-Mal Seizures- Vimpat IV 50mg Daily - Her neurologist had placed her on 50mg PO BID but since she is vomiting, Vimpat 50mg IV daily until able to take PO, awaiting to obtain old records from [facility], no seizures seen Bipolar Disorder Elavil 50mg PO Abilify 10mg PO daily Venlafaxine 150mg PO BID Hypotension no symptoms but not walking around as much Fludrocortisone 0.1mg PO Daily Pt will have aguilar placed to record urine output DVT SCDs Code Status - Full Resuscitation
[2016-10-31 15:36] VITALS: BP 110/71; PULSE 99; TEMP 36.8; O2SAT 96
[2016-10-31 16:15] VITALS: O2SAT 96
[2016-10-31] MEDS: AMITRIPTYLINE HCL 50 MG TAB PO SCH (21:37)
[2016-10-31 23:03] VITALS: BP 110/71; PULSE 92; PULSE 99; TEMP 36.8; O2SAT 96
[2016-11-01] VITALS (7 sets, daily range): BP systolic 105–123; BP diastolic 69–81; PULSE 75–101; TEMP 36.5–36.8; O2SAT 94–97
[2016-11-01] MEDS: D5NSS + 20MEQ KCL 1,000 ML IV SCH ×3 (03:40→20:43)
[2016-11-01 05:51] LABS: BASO % 0.8 %; BASO ABS # 0.04 K/uL (0-0.2); EOS % 2.2 %; HEMATOCRIT 36.6 % (37-47); IG% 0.4 %; LYMPH % 24.9 %; LYMPH ABS # 1.22 K/uL (1.2-3.4); MEAN CELL VOLUME 88.8 fL (80-100); MEAN CORPUSCULAR HEMOGLOBIN 29.4 pg (25-34); MEAN CORPUSCULAR HGB CONC 33.1 g/dl (32-36); MEAN PLATELET VOLUME 9.5 fL (7.4-10.4); MONO % 6.3 %; NEUT % 65.4 %; PLATELET COUNT 283 K/uL (130-400); RED BLOOD COUNT 4.12 M/uL (4.2-5.4); WHITE BLOOD COUNT 4.89 K/uL (4.8-10.8)
[2016-11-01 06:12] LABS: BUN/CREATININE RATIO 6.5 (10-20); CALCIUM 7.4 mg/dl (8.5-10.1); CREATININE 0.62 mg/dl (0.60-1.20); POTASSIUM 3.8 mmol/L (3.5-5.1)
[2016-11-01 06:14] LABS: ALB/GLOB RATIO 0.9 (0.9-2)
[2016-11-01] MEDS: CHECK SCOPOLAMINE PATCH PLACEMENT SCH ×3 (08:00→17:06)
[2016-11-01] MEDS: PROCHLORPERAZINE INJ 5 MG in SYRINGE 4 ML IV PRN ×2 (08:59→20:43)
[2016-11-01] MEDS: INDOMETHACIN 25 MG CAP PO SCH (09:04)
[2016-11-01] MEDS: PANTOprazole SOD 40 MG TAB PO SCH ×2 (09:04→20:44)
[2016-11-01] MEDS: VENLAFAXINE HCL XR 150 MG CAPXR PO SCH ×2 (09:05→20:44)
[2016-11-01] MEDS: FLUDROCORTISONE ACETATE 0.1 MG TAB PO SCH (09:05)
[2016-11-01] MEDS: ARIPIprazole TAB 10 MG TAB PO SCH (09:05)
[2016-11-01] MEDS: LACOSAMIDE 50 MG TAB PO SCH ×2 (09:05→21:26)
[2016-11-01 09:55] LABS: COMPLETE YES
[2016-11-01] MEDS: ONDANSETRON INJ 2 MG/ML 2 ML VIAL IV PRN ×2 (10:46→17:06)
[2016-11-01] MEDS ORDERED: ATROPINE SULFATE 0.1 MG/ML 5ML SYR IV PRN (12:30)
[2016-11-01] MEDS ORDERED: EpHEDrine SULFATE INJ 50 MG/ML AMP IV PRN (12:30)
--- NOTE | 2016-11-01 12:33 | Endo History and Physical ---
History & Physical Date of Service: Nov 01, 2016. Chief Complaint: Nausea and vomiting Referring Physician: Dr Villafuerte History of Present Illness For EGD Past Medical History Anxiety, Depression Past Surgical History Hx Cardiac Surgery: No Hx Internal Defibrillator: No Hx Pacemaker: No Hx Abdominal Surgery: Yes (gall bladder removed) Hx Post-Op Nausea and Vomiting: No Hx Cancer Surgery: No Hx Thoracic Surgery: No Hx Orthopedic: Yes (toe surgery) Hx Urinary Tract Surgery: No Social History Smoking Status: Former Smoker Hx Substance Use: No Hx Alcohol Use: No Allergies Coded Allergies: Gluten (Verified Allergy, Unknown, unknown, 10/29/16) Promethazine (Verified Adverse Reaction, Unknown, CAUSED SEIZURE, 10/29/16) Current Medications Reported Home Medications Medications Dose Route/Sig Max Daily Dose Days Date Category Indocin (Indomethacin) 25 Mg Cap 25 Mg PO DAILY 10/29/16 Reported Vimpat (Lacosamide) 50 Mg Tab 1 Tab PO BID 10/29/16 Reported Venlafaxine Hcl Er (Venlafaxine Hcl) 150 Mg Tab 150 Mg PO BID 03/09/16 Reported Elavil (Amitriptyline HCl) 50 Mg Tab 50 Mg PO HS 03/09/16 Reported Abilify (Aripiprazole) 10 Mg Tab 20 Mg PO DAILY 03/20/15 Reported Fludrocortisone Acetate 0.1 Mg Tab 0.1 Mg PO DAILY 07/30/14 Reported Vital Signs Weight (Kilograms): 81.300 Height (Feet): 5 Height (Inches): 6.00 Date Time Temp Pulse Resp B/P (MAP) Pulse Ox O2 Delivery O2 Flow Rate FiO2 11/01/16 12:11 36.8 86 20 131/79 (96) 97 Room Air 11/01/16 08:00 97 Room Air 11/01/16 07:33 36.8 101 20 123/80 (94) 97 Room Air 11/01/16 01:00 Room Air 11/01/16 00:12 36.6 90 16 110/75 (87) 95 Room Air 10/31/16 23:03 36.8 99 20 110/71 96 Room Air 92 10/31/16 16:15 96 Room Air 10/31/16 15:36 36.8 99 20 110/71 (84) 96 Room Air Physical Exam General Appearance: + obese Respiratory/Chest: Respiratory effort: no dyspnea Cardiovascular: Heart Auscultation: RRR Abdomen: Inspection & Palpation: soft Assessment and Plan Vomiting for EGD
[2016-11-01] MEDS ORDERED: FENTANYL CITRATE INJ 50 MCG/1 ML 2 ML VIAL ONE (12:41)
[2016-11-01] MEDS ORDERED: LIDOCAINE HCL 2% 2 ML VIAL (20MG/ML) ONE (12:41)
[2016-11-01] MEDS ORDERED: PROPOFOL IV EMULSION 10 MG/ML 20 ML VIAL IV ONE (12:41)
--- NOTE | 2016-11-01 12:54 | Discharge Instructions ---
Endoscopy Patient Instructions Date / Procedure(s) Performed Nov 01, 2016. EGD Allergy Information Coded Allergies: Gluten (Verified Allergy, Unknown, unknown, 10/29/16) Promethazine (Verified Adverse Reaction, Unknown, CAUSED SEIZURE, 10/29/16) Discharge Date / Findings Nov 01, 2016. Normal EGD Medication Instructions Restart Stopped Medication(s): resume meds Current Inpatient Medications Medications (Trade) Dose Ordered Sig/Tico Route Start Time Stop Time Status Last Admin Dose Admin Acetaminophen (Tylenol Tab) 650 mg Q4H PRN PO 10/29/16 16:45 11/28/16 16:44 Al Hydrox/Mg Hydrox/Simethicone (Maalox Max Susp) 15 ml Q4H PRN PO 10/29/16 16:45 11/28/16 16:44 10/31/16 00:51 15 ML Magnesium Hydroxide (Milk Of Magnesia Susp) 30 ml Q6H PRN PO 10/29/16 16:45 11/28/16 16:44 Polyethylene (Miralax Powder Packet) 17 gm DAILY PRN PO 10/29/16 16:45 11/28/16 16:44 Ondansetron HCl (Zofran Inj) 4 mg Q6H PRN IV 10/29/16 16:45 11/28/16 16:44 11/01/16 10:46 4 MG Aripiprazole (Abilify Tab) 20 mg DAILY PO 10/30/16 09:00 11/29/16 08:59 11/01/16 09:05 20 MG Fludrocortisone Acetate (Florinef Tab) 0.1 mg DAILY PO 10/30/16 09:00 11/29/16 08:59 11/01/16 09:05 0.1 MG Indomethacin (Indocin Cap) 25 mg DAILY PO 10/30/16 09:00 11/29/16 08:59 11/01/16 09:04 25 MG Lacosamide (Vimpat Tab) 50 mg BID PO 10/29/16 21:00 11/28/16 20:59 11/01/16 09:05 50 MG Venlafaxine HCl (effeXOR EXTENDED REL CAP) 150 mg BID PO 10/29/16 21:00 11/28/16 20:59 11/01/16 09:05 150 MG Potassium Chloride/Dextrose/ Sod Cl 1,000 ml @ 125 mls/hr Q8H IV 10/29/16 20:00 11/28/16 19:59 11/01/16 03:40 125 MLS/HR Miscellaneous (Iv Fluids Completed) 1 ea PRN PRN N/A 10/29/16 19:15 10/29/17 19:14 Amitriptyline HCl (Elavil Tab) 75 mg HS PO 10/30/16 21:00 11/28/16 20:59 10/31/16 21:37 75 MG Pantoprazole Sodium (Protonix Tab) 40 mg BID PO 10/30/16 15:00 11/29/16 14:59 11/01/16 09:04 40 MG Scopolamine (Transderm-Scop Patch) 1.5 mg Q72H TD 10/30/16 18:30 11/29/16 18:29 10/30/16 19:48 1.5 MG Miscellaneous (Remove Transderm-Scop Patch) 1 ea Q72H N/A 11/02/16 18:30 12/02/16 18:29 Miscellaneous Information (Check Scopolamine Patch Placement) 1 ea QS N/A 10/31/16 00:00 11/30/16 00:00 11/01/16 08:00 1 EA Lorazepam (Ativan Inj) 0.5 mg Q4H PRN IV 10/30/16 18:30 11/29/16 18:29 Lorazepam (Ativan Inj) 1 mg Q4H PRN IV 10/30/16 18:30 11/29/16 18:29 Lorazepam 1 mg/ Syringe 1 ml @ 1 mls/min Q4H PRN IV 10/30/16 19:45 11/29/16 19:44 10/31/16 22:10 1 MLS/MIN Lorazepam 0.5 mg/ Syringe 1 ml @ 1 mls/min Q4H PRN IV 10/30/16 19:45 11/29/16 19:44 Prochlorperazine Edisylate 5 mg/ Syringe 5 ml @ 1 mls/min BID PRN IV 10/31/16 20:55 11/28/16 16:59 11/01/16 08:59 1 MLS/MIN Ephedrine Sulfate (EpHEDrine SULFATE INJ) 5 mg Q5M PRN IV 11/01/16 12:30 11/02/16 12:29 UNV Atropine Sulfate (Atropine Sulfate 0.1MG/Ml Inj) 0.5 mg Q1M PRN IV 11/01/16 12:30 11/02/16 12:29 UNV Provider Instructions Activity Restrictions - No exercising or heavy lifting for 24 hours. - Do not drink alcohol the day of the procedure. - Do not drive a car or operate machinery until the day after the procedure. - Do not make any important decisions or sign important papers in 24 hours after the procedure. Following Day: - Return to full activity which may include returning to work/school. Diet Start your diet with liquids and light foods (jello, soup, juice, toast). Then eat your usual diet if not nauseated. Treatment For Common After Affects For mild abdominal pain, bloating, or excessive gas: - Rest - Eat lightly - Lie on right side Follow-Up Information Follow-up with as scheduled Anesthesia Information What You Should Know You have had a procedure that required some medicine to reduce anxiety and discomfort. This treatment is called moderate sedation. After receiving the treatment, you may be sleepy, but you will be able to breathe on your own. The effects of the treatment may last for several hours. Follow these instructions along with Activity/Diet recommendations noted above: * Do NOT do anything where dizziness or clumsiness would be dangerous. * Rest quietly at home today, then you can be up and about tomorrow. * Have a responsible person stay with you the rest of today. * You may have had an I.V. today. If so, you may take the dressing off later today. Recommendations Call your doctor if: * Trouble breathing * Continuous vomiting for more than 24 hours * Temperature above 101 degrees * Severe abdominal pain or bloating * Pain not relieved by pain medicine ordered * There is increased drainage or redness from any incision * A large amount of rectal bleeding greater than 2-3 tablespoons. (If you had a polyp/s removed or have hemorrhoids, a small amount of blood - from the rectum is to be expected.) * You have any unanswered questions or concerns. IN THE EVENT OF A SERIOUS EMERGENCY, GO TO THE NEAREST EMERGENCY ROOM Your discharge instructions were prepared by provider Puneet eDleon. Patient Instructions Signature Page John Fulton Patient (or Guardian) Signature/Date: I have read and understand the instructions given to me by my caregivers. Caregiver/RN/Doctor Signature/Date: The above-named patient and/or guardian has received patient instructions on this date. + Original Patient Signature Page (only) stays with chart. Please make copy for patient.
--- NOTE | 2016-11-01 13:15 | Anesthesiology Progress Note ---
Anesthesia Post Op Note Date & Time Nov 01, 2016 at 13:14 Vital Signs Pain Intensity: 9.0 Vital Signs Past 12 Hours Date Time Temp Pulse Resp B/P (MAP) Pulse Ox O2 Delivery O2 Flow Rate FiO2 11/01/16 13:00 87 16 126/93 (104) 94 Room Air 11/01/16 12:11 36.8 86 20 131/79 (96) 97 Room Air 11/01/16 08:00 97 Room Air 11/01/16 07:33 36.8 101 20 123/80 (94) 97 Room Air Notes Mental Status: alert / awake / arousable, participated in evaluation Pt Amnestic to Procedure: Yes Nausea / Vomiting: adequately controlled Pain: adequately controlled Airway Patency, RR, SpO2: stable & adequate BP & HR: stable & adequate Hydration State: stable & adequate Anesthetic Complications: no major complications apparent
--- NOTE | 2016-11-01 13:22 | GI REPORT ---
Procedure Date: 11/01/2016 12:41 PM Procedure: Upper GI endoscopy Indications: Nausea with vomiting Medicines: Fentanyl 100 micrograms IV, Propofol total dose 120 mg IV, Lidocaine 40 mg IV Complications: No immediate complications. Estimated Blood Loss: Estimated blood loss: none. Procedure: Pre-Anesthesia Assessment: - Prior to the procedure, a History and Physical was performed, and patient medications, allergies and sensitivities were reviewed. The patient's tolerance of previous anesthesia was reviewed. - The risks and benefits of the procedure and the sedation options and risks were discussed with the patient. All questions were answered and informed consent was obtained. After obtaining informed consent, the endoscope was passed under direct vision. Throughout the procedure, the patient's blood pressure, pulse, and oxygen saturations were monitored continuously. The scope was introduced through the mouth, and advanced to the third part of duodenum. The upper GI endoscopy was accomplished without difficulty. The patient tolerated the procedure well. Findings: The esophagus was normal. The stomach was normal. The examined duodenum was normal. Impression: - Normal esophagus. - Normal stomach. - Normal examined duodenum. - No specimens collected. Recommendation: - Return patient to [facility] for ongoing care. Puneet Deleon M.D. Puneet Deleon MD 11/01/2016 1:21:51 PM This report has been signed electronically. Note Initiated On: 11/01/2016 12:41 PM I attest to the content of the Intraoperative Record and orders documented therein, exceptions below
--- NOTE | 2016-11-01 13:33 | PROGRESS NOTE ---
DATE: 11/01/2016 HISTORY OF PRESENT ILLNESS: The patient underwent an EGD today which was normal. There was no inflammation or gastric ulceration. The patient has been increased to 75 mg a day at bedtime of amitriptyline for her cyclical vomiting syndrome. Checking her outside records, she had an ultrasound of the abdomen on 10/08/2016 which just showed a cholecystectomy and no other abnormalities. Stool for porphyrins has been reordered. In the past it was equivocal. IMPRESSION: The patient has cyclical vomiting syndrome with a negative EGD, negative ultrasound. Porphyrins are ordered to be redone. Her Elavil has been increased at bedtime. As soon as she is able to maintain her hydration, she should be able to be discharged home.
[2016-11-01] MEDS ORDERED: MoRPHine SULFATE 2 MG/ML CARP IV ONE (16:30)
[2016-11-01] MEDS ORDERED: NURSING VERBAL MED ORDER ONE ×2 (16:30)
[2016-11-01] MEDS ORDERED: BISACODYL 10 MG SUPP PR ONE (16:45)
[2016-11-01] MEDS: LORAZEPAM INJ 1 MG in SYRINGE 0.5 ML IV PRN (20:44)
[2016-11-01] MEDS: AMITRIPTYLINE HCL 50 MG TAB PO SCH (20:45)
[2016-11-02] MEDS: CHECK SCOPOLAMINE PATCH PLACEMENT SCH ×3 (00:07→16:00)
[2016-11-02] MEDS: ONDANSETRON INJ 2 MG/ML 2 ML VIAL IV PRN ×2 (00:57→10:08)
[2016-11-02] MEDS: LORAZEPAM INJ 1 MG in SYRINGE 0.5 ML IV PRN (02:19)
[2016-11-02] MEDS: D5NSS + 20MEQ KCL 1,000 ML IV SCH (04:49)
[2016-11-02 07:55] VITALS: BP 116/77; PULSE 77; TEMP 36.7; O2SAT 95
[2016-11-02 08:00] VITALS: O2SAT 95
[2016-11-02] MEDS ORDERED: D5W AND 1/2NSS + 20MEQ KCL 1,000 ML IV SCH (08:13)
--- NOTE | 2016-11-02 08:20 | Progress Note ---
Subjective Date of Service: Nov 01, 2016. 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, review of inpatient medication list reported abd sore, nausea, and abd distension, no bm for several days, but passing gas Problem List Medical Problems: (1) Dehydration Status: Acute (2) Dehydration Status: Acute (3) History of seizure Status: Acute (4) Ileus Status: Acute (5) Left lower lobe pneumonia Status: Acute (6) Nausea, vomiting, and diarrhea Status: Acute (7) Seizure Status: Acute (8) Upper abdominal pain Status: Acute (9) Vomiting Status: Acute (10) Vomiting Status: Acute Review of Systems Constitutional: + fatigue, No fever, No chills, No sweats, No weight loss, No weakness, No problem reported Eyes: No worsening of vision, No eye pain, No redness, No discharge, No diplopia ENT: No hearing loss, No unusual epistaxis, No nasal symptoms, No sore throat, No tinnitus, No dental problems, No trouble swallowing Respiratory: No cough, No sputum, No wheezing, No shortness of breath, No dyspnea on exertion, No dyspnea at rest, No hemoptysis Cardiac: No chest pain, No orthopnea, No PND, No edema, No claudication, No palpitations Abdomen: + nausea, + constipation, No pain, No vomiting, No diarrhea Musculoskeletal: No joint pain, No muscle pain, No swelling, No calf pain Female : No dysuria, No urinary frequency, No hematuria, No incontinence, No abnormal vaginal bleeding, No vaginal discharge Neurologic: No memory loss, No paralysis, No weakness, No numbness/tingling, No vertigo, No balance problems Psychiatric: No depression symptoms, No anhedonism, No anxiety, No insomnia, No substance abuse Heme: No abnormal bleeding/bruising, No clotting problems, No swollen lymph nodes, No night sweats Endo: No fatigue, No excessive thirst, No excessive urination Skin: No rash, No itch, No new/changing skin lesions, No color change, No bleeding Objective Vital Signs Date Time Temp Pulse Resp B/P (MAP) Pulse Ox O2 Delivery O2 Flow Rate FiO2 11/02/16 07:55 36.7 77 18 116/77 (90) 95 Room Air 11/02/16 04:00 Room Air 11/02/16 00:00 Room Air 11/01/16 23:20 36.5 100 18 105/69 (81) 94 Room Air 11/01/16 16:22 96 Room Air 11/01/16 15:19 36.6 85 18 119/79 (92) 94 Room Air 11/01/16 13:41 36.7 75 16 118/81 (93) 96 Room Air 11/01/16 13:30 93 18 135/96 (109) 94 Room Air 11/01/16 13:15 84 16 126/94 (105) 96 Room Air 11/01/16 13:00 87 16 126/93 (104) 94 Room Air 11/01/16 12:11 36.8 86 20 131/79 (96) 97 Room Air Physical Exam General Appearance: WD/WN, no apparent distress, + pertinent finding (pale, chronic ill looking) Eyes: normal inspection, PERRL, EOMI, sclerae normal ENT: normal ENT inspection, hearing grossly normal, pharynx normal Neck: supple, no adenopathy, thyroid normal, no JVD, no carotid bruits, trachea midline Respiratory/Chest: chest non-tender, lungs clear, normal breath sounds, no respiratory distress, no accessory muscle use Cardiovascular: regular rate, rhythm, no edema, no gallop, no JVD, no murmur Abdomen: normal bowel sounds, no organomegaly, no pulsatile mass, + distended Extremities: normal range of motion, non-tender, normal inspection, no pedal edema, no calf tenderness, normal capillary refill, pelvis stable 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, no motor/sensory deficits, alert, normal mood/affect, oriented x 3 Skin: normal color, warm/dry, no rash Lymphatic: no adenopathy Laboratory Results Last 24 Hours Test 11/01/16 12:14 Bedside Urine Test NEG Assessment and Plan 31 F with intractable vomiting associated with seizure disorder, previously diagnosed with cyclic vomiting syndrome at [facility], incidental asymptomatic, gardnarella uti, Vomiting no more nausea and constipation, checked KUB, showed " Minimal/mild nonobstructive ileus " Dulcolax and miralax for constipation advance diet Zofran 4mg IV q6h - Compazine prior to morning medication administration, transderm scop and ativan prn - Consult GI, EGD done today 11/01, unremarkable ordered repeat porphyrins, is on iv dextrose as cardohydrate load to attempt to reduce sx, consider Hemin treatment if porphyria is diagnosed however pt has no BM for several days, not able to collect sample Grand-Mal Seizures Vimpat IV 50mg Daily - Her neurologist had placed her on 50mg PO BID but since she is vomiting, Vimpat 50mg IV daily until able to take PO, awaiting to obtain old records from [facility], no seizures seen Bipolar Disorder Elavil 50mg PO Abilify 10mg PO daily Venlafaxine 150mg PO BID Hypotension no symptoms but not walking around as much Fludrocortisone 0.1mg PO Daily cont aguilar placed to record urine output DVT SCDs Code Status - Full Resuscitation again this note is for 11/01/2016 Continued [facility] stay due to: multiple IV medications needed Discharge planning: home
[2016-11-02] MEDS ORDERED: SOD PHOSPHATE/SOD BIPHOSPHATE ENEMA 132 ML BTL PR PRN (08:30)
[2016-11-02] MEDS ORDERED: SOD PHOSPHATE/SOD BIPHOSPHATE ENEMA 132 ML BTL PR ONE (08:45)
[2016-11-02] MEDS: INDOMETHACIN 25 MG CAP PO SCH (09:52)
[2016-11-02] MEDS: LACOSAMIDE 50 MG TAB PO SCH ×2 (09:52→20:41)
[2016-11-02] MEDS: FLUDROCORTISONE ACETATE 0.1 MG TAB PO SCH (09:53)
[2016-11-02] MEDS: VENLAFAXINE HCL XR 150 MG CAPXR PO SCH ×2 (09:53→20:39)
[2016-11-02] MEDS: ARIPIprazole TAB 10 MG TAB PO SCH (09:53)
[2016-11-02] MEDS: PANTOprazole SOD 40 MG TAB PO SCH ×2 (09:53→20:41)
[2016-11-02] MEDS ORDERED: MAGNESIUM CITRATE 296 ML/BTL PO ONE ×2 (13:15→17:00)
[2016-11-02 13:33] LABS: BASO % 0.2 %; BASO ABS # 0.01 K/uL (0-0.2); COMPLETE YES; EOS % 0.9 %; HEMATOCRIT 42.4 % (37-47); IG% 0.2 %; LYMPH % 20.7 %; LYMPH ABS # 0.89 K/uL (1.2-3.4); MEAN CELL VOLUME 87.2 fL (80-100); MEAN CORPUSCULAR HGB CONC 34.4 g/dl (32-36); MEAN PLATELET VOLUME 9.3 fL (7.4-10.4); MONO % 6.8 %; NEUT % 71.2 %; PLATELET COUNT 276 K/uL (130-400); RED BLOOD COUNT 4.86 M/uL (4.2-5.4); WHITE BLOOD COUNT 4.29 K/uL (4.8-10.8)
--- NOTE | 2016-11-02 13:56 | Progress Note ---
Subjective Date of Service: Nov 02, 2016. Subjective Pt evaluation today including: conversation w/ patient, physical exam, chart review, lab review, review of studies, review of inpatient medication list Voiding: aguilar catheter in place On the a few bites, Complain of abdominal pain, nausea, no vomiting No bowel movement, no stools with a flee enema However is passing gas Problem List Medical Problems: (1) Dehydration Status: Acute (2) Dehydration Status: Acute (3) History of seizure Status: Acute (4) Ileus Status: Acute (5) Left lower lobe pneumonia Status: Acute (6) Nausea, vomiting, and diarrhea Status: Acute (7) Seizure Status: Acute (8) Upper abdominal pain Status: Acute (9) Vomiting Status: Acute (10) Vomiting Status: Acute Review of Systems Constitutional: + weakness, + fatigue Eyes: No worsening of vision, No eye pain, No redness, No discharge, No diplopia ENT: No hearing loss, No unusual epistaxis, No nasal symptoms, No sore throat, No tinnitus, No dental problems, No trouble swallowing Respiratory: No cough, No sputum, No wheezing, No shortness of breath, No dyspnea on exertion, No dyspnea at rest, No hemoptysis Cardiac: No chest pain, No orthopnea, No PND, No edema, No claudication, No palpitations Abdomen: + pain (anatoliy lower abdomen is feeling sore), + nausea, + constipation, No vomiting, No diarrhea Musculoskeletal: No joint pain, No muscle pain, No swelling, No calf pain Female : No dysuria, No urinary frequency, No hematuria, No incontinence, No abnormal vaginal bleeding, No vaginal discharge Neurologic: No memory loss, No paralysis, No weakness, No numbness/tingling, No vertigo, No balance problems Psychiatric: No depression symptoms, No anhedonism, No anxiety, No insomnia, No substance abuse Heme: No abnormal bleeding/bruising, No clotting problems, No swollen lymph nodes, No night sweats Endo: No fatigue, No excessive thirst, No excessive urination Skin: No rash, No itch, No new/changing skin lesions, No color change, No bleeding Objective Vital Signs Date Time Temp Pulse Resp B/P (MAP) Pulse Ox O2 Delivery O2 Flow Rate FiO2 11/02/16 08:00 95 Room Air 11/02/16 07:55 36.7 77 18 116/77 (90) 95 Room Air 11/02/16 04:00 Room Air 11/02/16 00:00 Room Air 11/01/16 23:20 36.5 100 18 105/69 (81) 94 Room Air 11/01/16 16:22 96 Room Air 11/01/16 15:19 36.6 85 18 119/79 (92) 94 Room Air Physical Exam General Appearance: WD/WN, no apparent distress, + pertinent finding (chronic ill-looking, and pale) Eyes: normal inspection, PERRL, EOMI, sclerae normal ENT: normal ENT inspection, hearing grossly normal, pharynx normal Neck: supple, no adenopathy, thyroid normal, no JVD, no carotid bruits, trachea midline Respiratory/Chest: chest non-tender, normal breath sounds, no respiratory distress, no accessory muscle use, + decreased breath sounds Cardiovascular: regular rate, rhythm, no edema, no gallop, no JVD, no murmur Abdomen: normal bowel sounds, non tender, soft, no organomegaly, no pulsatile mass Extremities: normal range of motion, non-tender, normal inspection, no pedal edema, no calf tenderness, normal capillary refill, pelvis stable 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, no motor/sensory deficits, alert, normal mood/affect, oriented x 3 Skin: normal color, warm/dry, no rash Lymphatic: no adenopathy Laboratory Results Last 24 Hours Test 11/02/16 13:11 White Blood Count 4.29 K/uL Red Blood Count 4.86 M/uL Hemoglobin 14.6 g/dL Hematocrit 42.4 % Mean Corpuscular Volume 87.2 fL Mean Corpuscular Hemoglobin 30.0 pg Mean Corpuscular Hemoglobin Concent 34.4 g/dl Platelet Count 276 K/uL Mean Platelet Volume 9.3 fL Neutrophils (%) (Auto) 71.2 % Lymphocytes (%) (Auto) 20.7 % Monocytes (%) (Auto) 6.8 % Eosinophils (%) (Auto) 0.9 % Basophils (%) (Auto) 0.2 % Neutrophils # (Auto) 3.05 K/uL Lymphocytes # (Auto) 0.89 K/uL Monocytes # (Auto) 0.29 K/uL Eosinophils # (Auto) 0.04 K/uL Basophils # (Auto) 0.01 K/uL RDW Standard Deviation 40.7 fL RDW Coefficient of Variation 12.8 % Immature Granulocyte % (Auto) 0.2 % Immature Granulocyte # (Auto) 0.01 K/uL Assessment and Plan 31 F with intractable vomiting associated with seizure disorder admitted on previously diagnosed with cyclic vomiting syndrome at [facility], She was found has incidental asymptomatic, gardnarella uti, Nausea, Vomiting with history of cyclic vomiting syndrome Still nausea, no more vomiting No stools, eating poorly EGD WAS DONE ON 11/01/2016: Per report WHICH showed: - Normal esophagus. - Normal stomach. - Normal examined duodenum. - No specimens collected. checked KUB, showed " Minimal/mild nonobstructive ileus" Dulcolax and miralax for constipation advance diet Zofran 4mg IV q6h - Compazine prior to morning medication administration, transderm scop and ativan prn - Consult GI, EGD done today 11/01, unremarkable ordered repeat porphyrins, is on iv dextrose as cardohydrate load to attempt to reduce sx, consider Hemin treatment if porphyria is diagnosed however pt has no BM for several days, not able to collect sample Discontinue IV fluid, DC Aguilar catheter, continue bowel regimen, increase activity Give magnesium citrate for constipation Encourage oral intake Grand-Mal Seizures Vimpat IV 50mg Daily\\ Her neurologist had placed her on 50mg PO BID but since she is vomiting, Vimpat 50mg IV daily until able to take PO, Will start oral medication when patient able to take by mouth Bipolar Disorder, stable and continue , Elavil 50mg PO Abilify 10mg PO daily Venlafaxine 150mg PO BID Hypotension no symptoms but not walking around as much Fludrocortisone 0.1mg PO Daily Discontinue aguilar placed to record urine output DVT SCDs Code Status - Full Resuscitation Possible discharge tomorrow Continued [facility] stay due to: multiple IV medications needed Discharge planning: home
[2016-11-02 14:00] LABS: BUN/CREATININE RATIO 2.7 (10-20); CREATININE 0.66 mg/dl (0.60-1.20); MAGNESIUM 1.9 mg/dl (1.8-2.4); POTASSIUM 3.3 mmol/L (3.5-5.1)
[2016-11-02 14:10] LABS: CALCIUM 8.4 mg/dl (8.5-10.1)
[2016-11-02 15:34] VITALS: BP 126/87; PULSE 73; TEMP 36.7; O2SAT 97
[2016-11-02] MEDS: SCOPOLAMINE 1.5 MG TDSY TD SCH (18:20)
[2016-11-02] MEDS: PROCHLORPERAZINE INJ 5 MG in SYRINGE 4 ML IV PRN (19:31)
[2016-11-02] MEDS: AMITRIPTYLINE HCL 50 MG TAB PO SCH (20:41)
[2016-11-02] MEDS: KETOROLAC TROMETHAMINE 30 MG/ML VIAL IV PRN (22:23)
[2016-11-02 22:55] VITALS: BP 100/67; PULSE 113; TEMP 36.6; O2SAT 93
[2016-11-03] MEDS: CHECK SCOPOLAMINE PATCH PLACEMENT SCH ×3 (00:01→16:36)
[2016-11-03] MEDS: PROCHLORPERAZINE INJ 5 MG in SYRINGE 4 ML IV PRN ×2 (03:47→16:36)
[2016-11-03] MEDS: LORAZEPAM INJ 1 MG in SYRINGE 0.5 ML IV PRN (03:47)
[2016-11-03] MEDS: KETOROLAC TROMETHAMINE 30 MG/ML VIAL IV PRN ×3 (04:29→22:36)
[2016-11-03] MEDS: ONDANSETRON INJ 2 MG/ML 2 ML VIAL IV PRN ×2 (06:07→19:14)
[2016-11-03 07:36] VITALS: BP 107/69; PULSE 93; TEMP 36.9; O2SAT 98
[2016-11-03 08:20] LABS: BASO % 0.5 %; BASO ABS # 0.03 K/uL (0-0.2); COMPLETE YES; IG% 0.3 %; LYMPH % 22.6 %; LYMPH ABS # 1.34 K/uL (1.2-3.4); MEAN CELL VOLUME 87.6 fL (80-100); MEAN CORPUSCULAR HEMOGLOBIN 29.9 pg (25-34); MEAN CORPUSCULAR HGB CONC 34.1 g/dl (32-36); MEAN PLATELET VOLUME 9.4 fL (7.4-10.4); MONO % 5.4 %; NEUT % 69.2 %; PLATELET COUNT 276 K/uL (130-400); RED BLOOD COUNT 4.45 M/uL (4.2-5.4); WHITE BLOOD COUNT 5.94 K/uL (4.8-10.8)
[2016-11-03 08:36] LABS: BUN/CREATININE RATIO 4.5 (10-20); CREATININE 0.67 mg/dl (0.60-1.20); MAGNESIUM 2.6 mg/dl (1.8-2.4); POTASSIUM 3.5 mmol/L (3.5-5.1)
[2016-11-03] MEDS: INDOMETHACIN 25 MG CAP PO SCH (09:01)
[2016-11-03] MEDS: VENLAFAXINE HCL XR 150 MG CAPXR PO SCH ×2 (09:01→21:18)
[2016-11-03] MEDS: LACOSAMIDE 50 MG TAB PO SCH ×2 (09:01→21:19)
[2016-11-03] MEDS: ARIPIprazole TAB 10 MG TAB PO SCH (09:02)
[2016-11-03] MEDS: FLUDROCORTISONE ACETATE 0.1 MG TAB PO SCH (09:02)
[2016-11-03] MEDS: PANTOprazole SOD 40 MG TAB PO SCH ×2 (09:02→21:19)
[2016-11-03] MEDS ORDERED: NURSING VERBAL MED ORDER ONE (12:15)
[2016-11-03] MEDS ORDERED: POLYETHYLENE (MIRALAX) 17 GM PACK PO ONE (12:30)
[2016-11-03] MEDS: LORAZEPAM INJ 0.5 MG in SYRINGE 0.75 ML IV PRN ×2 (12:42→22:36)
--- NOTE | 2016-11-03 12:59 | Progress Note ---
Subjective Date of Service: Nov 03, 2016. Subjective Pt evaluation today including: conversation w/ patient, physical exam, chart review, lab review, review of studies, conversation w/ insurance consultant, review of inpatient medication list Voiding: no voiding problems Continue to complain nausea and not able to keep food down and pills down Report left chest wall pain, and no more lower abd sore Problem List Medical Problems: (1) Dehydration Status: Acute (2) Dehydration Status: Acute (3) History of seizure Status: Acute (4) Ileus Status: Acute (5) Left lower lobe pneumonia Status: Acute (6) Nausea, vomiting, and diarrhea Status: Acute (7) Seizure Status: Acute (8) Upper abdominal pain Status: Acute (9) Vomiting Status: Acute (10) Vomiting Status: Acute Review of Systems Constitutional: + weakness, + fatigue, No fever, No chills, No sweats, No weight loss, No problem reported Eyes: No worsening of vision, No eye pain, No redness, No discharge, No diplopia ENT: No hearing loss, No unusual epistaxis, No nasal symptoms, No sore throat, No tinnitus, No dental problems, No trouble swallowing Respiratory: No cough, No sputum, No wheezing, No shortness of breath, No dyspnea on exertion, No dyspnea at rest, No hemoptysis Cardiac: No chest pain, No orthopnea, No PND, No edema, No claudication, No palpitations Abdomen: No pain, No nausea, No vomiting, No diarrhea, No constipation Musculoskeletal: No joint pain, No muscle pain, No swelling, No calf pain Female : No dysuria, No urinary frequency, No hematuria, No incontinence, No abnormal vaginal bleeding, No vaginal discharge Neurologic: No memory loss, No paralysis, No weakness, No numbness/tingling, No vertigo, No balance problems Psychiatric: No depression symptoms, No anhedonism, No anxiety, No insomnia, No substance abuse Heme: No abnormal bleeding/bruising, No clotting problems, No swollen lymph nodes, No night sweats Endo: No fatigue, No excessive thirst, No excessive urination Skin: No rash, No itch, No new/changing skin lesions, No color change, No bleeding Objective Vital Signs Date Time Temp Pulse Resp B/P (MAP) Pulse Ox O2 Delivery O2 Flow Rate FiO2 11/03/16 08:00 Room Air 11/03/16 07:36 36.9 93 18 107/69 (82) 98 Room Air 11/03/16 00:15 Room Air 11/02/16 22:55 36.6 113 16 100/67 (78) 93 11/02/16 16:00 Room Air 11/02/16 15:34 36.7 73 16 126/87 (100) 97 Physical Exam General Appearance: WD/WN, no apparent distress, + pertinent finding (pale, chronically ill-looking, tired) Eyes: normal inspection, PERRL, EOMI, sclerae normal ENT: normal ENT inspection, hearing grossly normal, pharynx normal Neck: supple, no adenopathy, thyroid normal, no JVD, no carotid bruits, trachea midline Respiratory/Chest: chest non-tender, normal breath sounds, no respiratory distress, no accessory muscle use, + decreased breath sounds Cardiovascular: regular rate, rhythm, no edema, no gallop, no JVD, no murmur, + pertinent finding (left chest wall no bluish) Abdomen: normal bowel sounds, non tender, soft, no organomegaly, no pulsatile mass Extremities: normal range of motion, non-tender, normal inspection, no pedal edema, no calf tenderness, normal capillary refill, pelvis stable Neurologic/Psychiatric: can carrier II-XII nml as tested, no motor/sensory deficits, alert, normal mood/affect, oriented x 3 Skin: normal color, warm/dry, no rash Lymphatic: no adenopathy Laboratory Results Last 24 Hours Test 11/02/16 13:11 11/03/16 07:45 White Blood Count 4.29 K/uL 5.94 K/uL Red Blood Count 4.86 M/uL 4.45 M/uL Hemoglobin 14.6 g/dL 13.3 g/dL Hematocrit 42.4 % 39.0 % Mean Corpuscular Volume 87.2 fL 87.6 fL Mean Corpuscular Hemoglobin 30.0 pg 29.9 pg Mean Corpuscular Hemoglobin Concent 34.4 g/dl 34.1 g/dl Platelet Count 276 K/uL 276 K/uL Mean Platelet Volume 9.3 fL 9.4 fL Neutrophils (%) (Auto) 71.2 % 69.2 % Lymphocytes (%) (Auto) 20.7 % 22.6 % Monocytes (%) (Auto) 6.8 % 5.4 % Eosinophils (%) (Auto) 0.9 % 2.0 % Basophils (%) (Auto) 0.2 % 0.5 % Neutrophils # (Auto) 3.05 K/uL 4.11 K/uL Lymphocytes # (Auto) 0.89 K/uL 1.34 K/uL Monocytes # (Auto) 0.29 K/uL 0.32 K/uL Eosinophils # (Auto) 0.04 K/uL 0.12 K/uL Basophils # (Auto) 0.01 K/uL 0.03 K/uL RDW Standard Deviation 40.7 fL 41.8 fL RDW Coefficient of Variation 12.8 % 13.0 % Immature Granulocyte % (Auto) 0.2 % 0.3 % Immature Granulocyte # (Auto) 0.01 K/uL 0.02 K/uL Sodium Level 144 mmol/L 145 mmol/L Potassium Level 3.3 mmol/L 3.5 mmol/L Chloride Level 109 mmol/L 110 mmol/L Carbon Dioxide Level 28 mmol/L 26 mmol/L Anion Gap 7.0 mmol/L 9.0 mmol/L Blood Urea Nitrogen 2 mg/dl 3 mg/dl Creatinine 0.66 mg/dl 0.67 mg/dl Est Creatinine Clear Calc Drug Dose 130.3 ml/min 128.4 ml/min Estimated GFR () 134.5 133.9 Estimated GFR (Non- 116.1 115.5 BUN/Creatinine Ratio 2.7 4.5 Random Glucose 118 mg/dl 105 mg/dl Calcium Level 8.4 mg/dl 8.0 mg/dl Magnesium Level 1.9 mg/dl 2.6 mg/dl Assessment and Plan 31 F with intractable vomiting associated with seizure disorder admitted on previously diagnosed with cyclic vomiting syndrome at [facility], She was found has incidental asymptomatic, gardnarella uti, Continue Nausea, possible improve Normal Vomiting history of cyclic vomiting syndrome Constipation, resolved Minimal/mild nonobstructive ileus per KUB, resolved finally has bowel movement after Dulcolax suppository, flee enema, and she got 2 dose of magnesium citrate Will continue bowel regimen of MiraLAX which will be daily and schedule EGD WAS DONE ON 11/01/2016: Per report WHICH showed: - Normal esophagus. - Normal stomach. - Normal examined duodenum. - No specimens collected. advance diet Zofran 4mg IV q6h - Compazine prior to morning medication administration, transderm scop and ativan prn - Consult GI, EGD done 11/01, unremarkable ordered repeat porphyrins, is on iv dextrose as cardohydrate load to attempt to reduce sx, consider Hemin treatment if porphyria is diagnosed not able to collect sample Discontinue IV fluid, DC Carvajal catheter, continue bowel regimen, increase activity Encourage oral intake Grand-Mal Seizures Vimpat IV 50mg Daily\ Her neurologist had placed her on 50mg PO BID but since she is vomiting, Vimpat 50mg IV daily until able to take PO, Has restart oral medication with home dose Bipolar Disorder, stable and continue , Elavil 50mg PO Abilify 10mg PO daily Venlafaxine 150mg PO BID Hypotension no symptoms but not walking around as much Fludrocortisone 0.1mg PO Daily DVT SCDs Code Status - Full Resuscitation Discussed about discharge plan, switch on IV medicine to oral, prepared to go home today or tomorrow At advanced diet Regarding to the pain in the left chest wall, recommend heating pack, patient declined, she says she not able to take Tylenol, I feel reluctant to give any narcotic Continued [facility] stay due to: multiple IV medications needed Discharge planning: home
[2016-11-03 15:19] VITALS: BP 121/82; PULSE 108; TEMP 36.8; O2SAT 94
--- NOTE | 2016-11-03 16:42 | GASTROENTEROLOGY PROGRESS NOTE ---
DATE: 11/03/2016 SUBJECTIVE: The patient is seen today and has a history of cyclic vomiting syndrome and reports that her low was increased last evening to 75 mg at bedtime up from 50. She had an upper endoscopy on Tuesday, which was unrevealing. The patient can tolerate liquids for the most part, although solids seem to bother her. She did have a small amount of vomiting this morning by her history. She is somnolent at this time. LABORATORY STUDIES: Today, white count 5.9, hemoglobin 13.3, platelets 276,000, sodium 145, BUN and creatinine of 3 and 0.7. LFTs are essentially normal except for alkaline phosphatase which is 153 two days ago. This is down from 187 on the . REVIEW OF SYSTEMS: Otherwise noncontributory based on 14-point exam except for mentioned above. PHYSICAL EXAMINATION: VITAL SIGNS: Today, the patient at 3 p.m. afebrile at 36.8, heart rate 108, blood pressure 121/82 with 94% on room air. GENERAL: The patient is alert, oriented to person, place and time. HEENT: Oral mucosa moist. LUNGS: Clear to auscultation. HEART: Normal S1, S2. ABDOMEN: Soft, nontender, nondistended with good bowel sounds. EXTREMITIES: Without clubbing, cyanosis or edema. RECTAL: Deferred at this time. IMPRESSION AND PLAN: The patient with cyclic vomiting syndrome, normal esophagogastroduodenoscopy without mucosal defects. We will observe response to Elavil at 75 mg at bedtime. The patient is encouraged to eat small frequent meals, use of tod shawn, or Coca Cola either flat or with carbonation can be tried. The patient should ambulate at once able. All questions answered.
[2016-11-03] MEDS: AMITRIPTYLINE HCL 50 MG TAB PO SCH (21:18)
[2016-11-04] MEDS: CHECK SCOPOLAMINE PATCH PLACEMENT SCH ×2 (00:04→07:39)
[2016-11-04 00:14] VITALS: BP 113/77; PULSE 85; TEMP 36.7; O2SAT 94
[2016-11-04 07:17] VITALS: BP 109/74; PULSE 88; TEMP 36.6; O2SAT 97
[2016-11-04 07:37] LABS: BUN/CREATININE RATIO 6.9 (10-20); CALCIUM 8.1 mg/dl (8.5-10.1); CREATININE 0.69 mg/dl (0.60-1.20); MAGNESIUM 2.7 mg/dl (1.8-2.4); POTASSIUM 3.2 mmol/L (3.5-5.1)
[2016-11-04] MEDS: ONDANSETRON INJ 2 MG/ML 2 ML VIAL IV PRN (07:37)
[2016-11-04] MEDS: KETOROLAC TROMETHAMINE 30 MG/ML VIAL IV PRN (07:38)
[2016-11-04 08:00] VITALS: O2SAT 97
[2016-11-04] MEDS ORDERED: POTASSIUM CHLORIDE 10 MEQ TABCR PO STA (08:16)
[2016-11-04] MEDS ORDERED: POTASSIUM CHLR 20 MEQ / WTR 20 MEQ in PREMIXED WATER 100 ML IV STA (08:16)
[2016-11-04] MEDS ORDERED: MRLP17 PO (08:34)
[2016-11-04] MEDS ORDERED: AMT50 PO (08:34)
[2016-11-04] MEDS ORDERED: PRT40 PO (08:34)
[2016-11-04] MEDS ORDERED: POLYETHYLENE (MIRALAX) 17 GM PACK PO SCH (09:00)
--- NOTE | 2016-11-04 09:32 | Discharge Instructions ---
Discharge Instructions Date of Service Nov 04, 2016. Admission Reason for Admission: Intractable Vomiting Discharge Discharge Diagnosis / Problem: cyclic vomiting syndrome Discharge Goals Goal(s): Decrease discomfort, Improve function, Increase independence, Improve disease control, Improve nutritional status, Learn about illness, Diagnostic testing, Therapeutic intervention, Prevent Disease Progression, Specific goals Activity Recommendations Activity Limitations: resume your previous activity . Instructions / Follow-Up Instructions / Follow-Up you have cyclic vomiting syndrome, you have normal esophagogastroduodenoscopy done we have increased Elavil to 75 mg at bedtime. you can eat small frequent meals, use of tod shawn, or Coca Cola either flat or with carbonation can be tried. you need to follow up with pcp in 3-4 days to check labs of bmp, and mag you need to keep appointment with your neurologist Dr. thorpe in mid of November - take medication as instructed, never overdose or any misuse, or take with alcohol, because misuse of medicine may cause organ damage or , call your primary care physician if have questions of medicaitons. - call your primary care physician OR go to local emergency room if has any fever/chill, chest pain, shortness of breathing, nausea/vomiting/abdominal pain , facial droop/slurry speech/local weakness, or if has any questions. - fall precaution - diet as instructed - you need to follow up with your subspecialist - you should understand that it is important to follow up the above instruction , and "not following the above instruction" may cause delayed or missed care of your medical conditions which may cause permanent organ damage and even . Current Hospital Diet Patient's current hospital diet: Regular Diet Discharge Diet Recommended Diet: Regular Diet Procedures Procedures Performed: EGD Pending Studies Studies pending at discharge: no Medical Emergencies . Who to Call and When: Medical Emergencies: If at any time you feel your situation is an emergency, please call 911 immediately. . Non-Emergent Contact Non-Emergency issues call your: Primary Care Provider, Neurologist . . "Provider Documentation" section prepared by Emir Cortez. . VTE Core Measure Inpt VTE Proph given/why not?: Unfractionated heparin SQ
[2016-11-04] MEDS: POTASSIUM CHLR 10MEQ / WTR IV SCH ×2 (09:35→11:28)
[2016-11-04] MEDS: PANTOprazole SOD 40 MG TAB PO SCH (09:35)
[2016-11-04] MEDS: INDOMETHACIN 25 MG CAP PO SCH (09:36)
[2016-11-04] MEDS: FLUDROCORTISONE ACETATE 0.1 MG TAB PO SCH (09:36)
[2016-11-04] MEDS: ARIPIprazole TAB 10 MG TAB PO SCH (09:37)
[2016-11-04] MEDS: VENLAFAXINE HCL XR 150 MG CAPXR PO SCH (09:37)
[2016-11-04] MEDS: LACOSAMIDE 50 MG TAB PO SCH (09:37)
--- NOTE | 2016-11-04 11:00 | Discharge Summary ---
Discharge Summary Date of Service Nov 04, 2016. Discharge Summary Admission Date: Oct 29, 2016 at 17:28 Discharge Date: Nov 04, 2016 Discharge Disposition: Home Principal Diagnosis: cyclic vomiting syndrome Problems/Secondary Diagnoses: Depression Bipolar History of seizure disorder Immunizations: Have You Had Influenza Vaccine: No Procedures: EGD was done Consultations: GI service Medication Reconciliation New Medications: Amitriptyline Hcl (Elavil) 50 Mg Tab 75 MG PO HS for 30 Days, TAB Pantoprazole (Pantoprazole Sodium) 40 Mg Tab 40 MG PO BID for 30 Days, #60 TAB Polyethylene (Miralax) 17 Gm Pow 17 GM PO QAM PRN for constipation for 30 Days Continued Medications: Aripiprazole (Abilify) 10 Mg Tab 20 MG PO DAILY, TAB 1 Refill Fludrocortisone Acetate (Fludrocortisone Acetate) 0.1 Mg Tab 0.1 MG PO DAILY Indomethacin (Indocin) 25 Mg Cap 25 MG PO DAILY, CAP Lacosamide (Vimpat) 50 Mg Tab 1 TAB PO BID Venlafaxine Hcl (Venlafaxine Hcl Er) 150 Mg Tab 150 MG PO BID, TAB 2 Refills Discontinued Medications: Amitriptyline Hcl (Elavil) 50 Mg Tab 50 MG PO HS, TAB Discharge Exam Possible eating better Possible nausea is better Per documentation she eat 100% meals yesterday Review of Systems: Constitutional: No fever, No chills, No sweats, No weight loss, No weakness , No fatigue, No problem reported Eyes: No worsening of vision, No eye pain, No redness, No discharge, No diplopia, No problem reported ENT: No hearing loss, No unusual epistaxis, No nasal symptoms, No sore throat, No tinnitus, No dental problems, No trouble swallowing, No problem reported Respiratory: No cough, No sputum, No wheezing, No shortness of breath, No dyspnea on exertion, No dyspnea at rest, No hemoptysis, No problem reported Cardiovascular: No chest pain, No orthopnea, No PND, No edema, No claudication, No palpitations, No problem reported Abdomen: + nausea Musculoskeletal: No joint pain, No muscle pain, No swelling, No calf pain, No problem reported Genitourinary - Female: No dysuria, No urinary frequency, No urinary urgency , No urinary incontinence, No urinary retention, No hematuria, No dysmenorrhea, No menorrhagia, No metrorrhagia, No rash, No vaginal bleeding, No vaginal discharge, No vaginal itching, No vulvodynia, No , No problem reported Neurologic: No memory loss, No paralysis, No weakness, No numbness/tingling , No vertigo, No balance problems, No problem reported Psychiatric: No depression symptoms, No anhedonism, No anxiety, No insomnia , No substance abuse, No problem reported Endocrine: No fatigue, No excessive thirst, No excessive urination, No problem reported Hematologic / Lymphatic: No abnormal bleeding/bruising, No clotting problems , No swollen lymph nodes, No night sweats, No problem reported Integumentary: No rash, No itch, No new/changing skin lesions, No color change, No bleeding, No problem reported Physical Exam: General Appearance: WD/WN, no apparent distress, + pertinent finding ( Genelly looks better and then yesterday) Eyes: normal inspection, PERRL, EOMI ENT: normal ENT inspection, hearing grossly normal Neck: supple, no adenopathy Respiratory/Chest: chest non-tender, no respiratory distress, no accessory muscle use, + decreased breath sounds Cardiovascular: regular rate, rhythm, no edema, no gallop, no JVD Abdomen / GI: normal bowel sounds, non tender, soft Extremities: normal inspection, no calf tenderness, normal capillary refill Neurologic/Psychiatric: 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 II-XII nml as tested, no motor/sensory deficits , alert, normal mood/affect, normal reflexes Skin: normal color, warm/dry Hospital Course 31 F with intractable vomiting associated with seizure disorder admitted on previously diagnosed with cyclic vomiting syndrome at [facility], She was found has incidental asymptomatic, gardnarella uti, cyclic vomiting syndrome Nausea improve Constipation, resolved Minimal/mild nonobstructive ileus per KUB, resolved, tolerated diet finally has bowel movement after Dulcolax suppository, flee enema, and she got 2 dose of magnesium citrate Will continue bowel regimen of MiraLAX which will be daily and schedule EGD WAS DONE ON 11/01/2016: Per report WHICH showed: - Normal esophagus. - Normal stomach. - Normal examined duodenum. - No specimens collected. advance diet Zofran 4mg IV q6h - Compazine prior to morning medication administration, transderm scop and ativan prn - Consult GI, EGD done 11/01, unremarkable ordered repeat porphyrins, is on iv dextrose as cardohydrate load to attempt to reduce sx, consider Hemin treatment if porphyria is diagnosed not able to collect sample Discontinue IV fluid, DC Carvajal catheter, continue bowel regimen, increase activity Encourage oral intake GI service increase Elavil to 75 by mouth daily at bedtime Grand-Mal Seizures Vimpat IV 50mg Daily\\ Her neurologist had placed her on 50mg PO BID but since she is vomiting, Vimpat 50mg IV daily until able to take PO, Has restart oral medication with home dose Patient follow-up neurologist in [facility] Dr. Mike, I encouraged her to continue follow-up with him, and keep the appointment in november Bipolar Disorder, stable and continue , Elavil 50mg PO Abilify 10mg PO daily Venlafaxine 150mg PO BID Hypotension no symptoms but not walking around as much Fludrocortisone 0.1mg PO Daily DVT SCDs Code Status - Full Resuscitation Discharge instructions you have cyclic vomiting syndrome, you have normal esophagogastroduodenoscopy done we have increased Elavil to 75 mg at bedtime. you can eat small frequent meals, use of tod shawn, or Coca Cola either flat or with carbonation can be tried. you need to follow up with pcp in 3-4 days to check labs of bmp, and mag you need to keep appointment with your neurologist Dr. mike in mid of November - take medication as instructed, never overdose or any misuse, or take with alcohol, because misuse of medicine may cause organ damage or , call your primary care physician if have questions of medicaitons. - call your primary care physician OR go to local emergency room if has any fever/chill, chest pain, shortness of breathing, nausea/vomiting/abdominal pain , facial droop/slurry speech/local weakness, or if has any questions. - fall precaution - diet as instructed - you need to follow up with your subspecialist - you should understand that it is important to follow up the above instruction , and "not following the above instruction" may cause delayed or missed care of your medical conditions which may cause permanent organ damage and even . Total Time Spent: Greater than 30 minutes This includes examination of the patient, discharge planning, medication reconciliation, and communication with other providers. Discharge Instructions Please refer to the electronic Patient Visit Report (Discharge Instructions) for additional information. Additional Copies To Mirtha Arellano M.D.
[2016-11-04 13:22] VITALS: BP 109/74; PULSE 88; TEMP 36.6; O2SAT 97
[2016-11-06 22:53] LABS: COPROPORPYRINS I 26.1 mcg/24 h (7.1-48.7); COPROPORPYRINS III 59.7 mcg/24 h (11.0-148.5); PORPHYRINS TOTAL 101.8 mcg/24 h (35.0-210.7); UROPORPHYRINS I 11.2 mcg/24 h (4.1-22.4); UROPORPHYRINS III 2.2 mcg/24 h (0.7-7.4)
== END 2016-11-04 15:00 | disposition home or self-care (01) ==
LOC: C.EDB 12:45 → C.MS2W 17:28 → EDBEDREQSVC 17:50 → EDBEDREQ 17:50 → EDBEDREQTM 17:50 → ENRESERV 18:15
PROVIDERS: ADMIT Internal Medicine; ATTEND Hospitalist
DX: G43.A0 Cyclical vomiting, in migraine, not intractable (principal); F32.9 Major depressive disorder, single episode, unspecified; F31.9 Bipolar disorder, unspecified; G40.909 Epilepsy, unspecified, not intractable, without status epilepticus; Z98.890 Other specified postprocedural states; Z90.49 Acquired absence of other specified parts of digestive tract; Z90.89 Acquired absence of other organs; Z87.891 Personal history of nicotine dependence; Z80.8 Family history of malignant neoplasm of other organs or systems; Z83.3 Family history of diabetes mellitus; Z84.1 Family history of disorders of kidney and ureter; Z82.0 Family history of epilepsy and other diseases of the nervous system; Z83.6 Family history of other diseases of the respiratory system

== ENCOUNTER 2017-05-29 09:56 | Emergency (ER) | payer OTHER ==
[~2017-05-29] VITALS: Ht 165.1 cm; Wt 89.7 kg
[~2017-05-29 09:56] MED LIST changes: -B-CO1CAP3 PO; -CARB200T PO; +IND/25 PO; +LACO50TA PO; +MRLP17 PO; -NRN100 PO; +PRT40 PO
[2017-05-29 10:11] VITALS: TEMP 36.8; Ht 165.1 cm; Wt 89.7 kg
[2017-05-29] MEDS ORDERED: SODIUM CHLORIDE 0.9% 1000ML 1,000 ML IV STA (10:19)
[2017-05-29] MEDS ORDERED: PROCHLORPERAZINE 5 MG/ML 2 ML VIAL IV STA (10:40)
[2017-05-29] MEDS ORDERED: DiphenhydrAMINE HCL 50 MG/ML VIAL IV STA (10:40)
[2017-05-29 11:44] LABS: BASO % 0.4 %; BASO ABS # 0.03 K/uL (0-0.2); EOS ABS # 0.07 K/uL (0-0.5); HEMATOCRIT 41.4 % (37-47); HEMOGLOBIN 14.3 g/dL (12.0-16.0); IG# 0.02 K/uL (0.00-0.02); LYMPH % 17.9 %; LYMPH ABS # 1.27 K/uL (1.2-3.4); MEAN CELL VOLUME 84.5 fL (80-100); MEAN CORPUSCULAR HEMOGLOBIN 29.2 pg (25-34); MEAN CORPUSCULAR HGB CONC 34.5 g/dl (32-36); MEAN PLATELET VOLUME 9.2 fL (7.4-10.4); MONO % 5.6 %; NEUT % 74.8 %; NEUT ABS # 5.31 K/uL (1.4-6.5); PLATELET COUNT 295 K/uL (130-400); RED CELL DISTRIBUTION WIDTH SD 39.1 fL (36.4-46.3)
[2017-05-29] MEDS ORDERED: PROCHLORPERAZINE INJ 10 MG in SYRINGE 8 ML IV ONE (12:00)
[2017-05-29 12:01] LABS: ALBUMIN 3.2 gm/dl (3.4-5.0); BLOOD UREA NITROGEN 7 mg/dl (7-18); CALCIUM 8.7 mg/dl (8.5-10.1); CARBON DIOXIDE 25 mmol/L (21-32); CREATININE 0.57 mg/dl (0.60-1.20); GLUCOSE 86 mg/dl (70-99); LIPASE 432 U/L (73-393); POTASSIUM 2.8 mmol/L (3.5-5.1); SODIUM 140 mmol/L (136-145)
[2017-05-29 12:05] LABS: ALKALINE PHOSPHATASE 246 U/L (45-117); ALT/SGPT 41 U/L (12-78); AST/SGOT 28 U/L (15-37); TOTAL PROTEIN 7.3 gm/dl (6.4-8.2)
--- NOTE | 2017-05-29 13:21 | DIAGNOSTIC IMAGING REPORT ---
ABDOMEN AND PELVIS CT WITH IV CONTRAST CT DOSE: 811.40 mGy.cm HISTORY: Right sided pain, prior benito, intract.N/V TECHNIQUE: Multiaxial CT images of the abdomen and pelvis were performed following the use of intravenous contrast. A dose lowering technique was utilized adhering to the principles of ALARA. COMPARISON STUDY: Abdomen and pelvis CT 08/15/2015. FINDINGS: The lung bases are essentially clear. No fractures within the visualized osseous structures. Cholecystectomy. The liver, spleen, adrenal glands, pancreas, and kidneys are unremarkable. No hydronephrosis. No retroperitoneal lymphadenopathy. A few prominent mesenteric lymph nodes. These measure subcentimeter in short axis diameter. The bladder and uterus are unremarkable. Small bilateral ovarian follicles/cysts. Trace pelvic free fluid. This is likely physiologic. The appendix is not well-visualized but appears to be within normal limits. Lumbar subcutaneous edema, unchanged. No bowel wall thickening or obstruction. IMPRESSION: 1. No bowel wall thickening or obstruction. 2. No hydronephrosis. 3. The visualized appendix appears unremarkable. 4. Cholecystectomy. 5. A few prominent mesenteric lymph nodes. These are of uncertain clinical significance and could represent a mild mesenteric adenitis. 6. Small amount of pelvic free fluid. This is likely physiologic. Electronically signed by: Anjel Johnston M.D. 05/29/2017 1:20 PM Dictated Date/Time: 05/29/2017 1:11 PM
[2017-05-29] MEDS ORDERED: POTASSIUM CHLORIDE 10 MEQ / 100ML WTR IV STA (13:46)
[2017-05-29] MEDS ORDERED: CEFTRIAXONE SOD INJ 1 GM ADDVIAL IV STA (13:46)
[2017-05-29] MEDS ORDERED: POTASSIUM CHLORIDE 10 MEQ TABCR PO STA (13:51)
[2017-05-29] MEDS ORDERED: ONDANSETRON INJ 2 MG/ML 2 ML VIAL IV STA (13:51)
[2017-05-29] MEDS ORDERED: SULF800T23 PO (15:23)
[2017-05-29 15:26] VITALS: PULSE 104; O2SAT 97
[2017-05-29 15:31] VITALS: BP 132/90
[2017-05-29] MEDS ORDERED: POTA20TA13 PO (15:40)
--- NOTE | 2017-05-29 15:48 | EMERGENCY ROOM VISIT NOTE ---
History Report prepared by Wil: Kobe Patterson Under the Supervision of: Dr. Jefry Cha M.D. First contact with patient: 10:19 Chief Complaint: VOMITING Stated Complaint: VOMITING,ABDOMINAL PAIN History of Present Illness The patient is a 31 year old female who presents to the Emergency Room with complaints of intermittent episodes of vomiting that began last week. She has a past medical history of cyclic vomiting and a cholecystectomy. Her symptoms began with an inability to hold down any food items. She is on Protonics daily with PRN Zofran. However, her Zofran has not been helping. She then progressed to the inability to hold down fluids as of yesterday. She is also experiencing RUQ abdominal pain and a mild cough. She notes some mild burning with urination. She believes that her current symptoms are congruent with her prior episodes of cyclic vomiting. Pt denies LOC, headache, fevers, chills, diaphoresis, visual changes, neck pain, chest pain, breathing difficulties, back pain, melena, hematochezia, numbness, weakness, lymphadenopathy, rash, or other complaints. Source of History: patient Onset: 1 week ago Position: other (GI) Symptom Intensity: Multiple episodes Quality: other (Vomiting) Timing: intermittent Associated Symptoms: + cough, + nausea, + abdominal pain (RUQ), + urinary symptoms (burning) Review of Systems See HPI for pertinent positives and negatives. A total of ten systems were reviewed and were otherwise negative. Past Medical & Surgical Medical Problems: (1) Arthritis (2) Estevez's esophagus (3) Bipolar 1 disorder (4) Cyclic vomiting syndrome (5) Fibromyalgia (6) GERD (gastroesophageal reflux disease) (7) H/o cervical disc displacement (8) Intractable vomiting (9) Nausea & vomiting (10) Seizure disorder Surgical Problems: (1) H/O colonoscopy (2) H/O EGD (3) H/O toe surgery (4) History of cholecystectomy (5) S/P cholecystectomy (6) S/P ear surgery (7) S/P tonsillectomy and adenoidectomy Family History Cancer MOTHER (skin CA) Diabetes mellitus FATHER FH: kidney disease FH: seizures Heart disease Lung disease Social History Smoking Status: Never Smoker Alcohol Use: none Drug Use: none Marital Status: single Housing Status: lives with family Occupation Status: unemployed Current/Historical Medications Scheduled Amitriptyline Hcl (Elavil), 75 MG PO HS Aripiprazole (Abilify), 20 MG PO DAILY Fludrocortisone Acetate (Fludrocortisone Acetate), 0.1 MG PO DAILY Lacosamide (Vimpat), 1 TAB PO BID Pantoprazole (Pantoprazole Sodium), 40 MG PO BID Potassium Chloride Microencaps (Potassium Chloride Er), 1 TAB PO DAILY Sulfa/Trimethoprim (Bactrim Ds 800MG/160MG), 1 TAB PO BID Venlafaxine Hcl (Venlafaxine Hcl Er), 150 MG PO BID Scheduled PRN Polyethylene (Miralax), 17 GM PO QAM PRN for constipation Allergies Coded Allergies: Gluten (Verified Allergy, Unknown, unknown, 05/29/17) Promethazine (Verified Adverse Reaction, Unknown, CAUSED SEIZURE, 05/29/17) Physical Exam Vital Signs Date Time Temp Pulse Resp B/P (MAP) Pulse Ox O2 Delivery O2 Flow Rate FiO2 05/29/17 15:31 132/90 05/29/17 15:26 104 23 97 05/29/17 15:01 105/72 05/29/17 14:56 114 15 93 05/29/17 14:30 132/83 05/29/17 14:26 99 16 96 05/29/17 14:00 122/86 05/29/17 13:56 99 26 95 05/29/17 13:40 112/82 05/29/17 13:00 106/66 05/29/17 12:41 100 20 106/66 97 Room Air 05/29/17 12:30 106/66 05/29/17 12:26 97 26 97 05/29/17 12:21 109/62 05/29/17 12:18 90 05/29/17 12:01 94 20 100/64 95 Room Air 05/29/17 11:51 100/64 05/29/17 10:11 36.8 93 18 117/81 99 Room Air Physical Exam GENERAL: Awake, alert, well-appearing, in no distress HENT: Normocephalic, atraumatic. Oropharynx unremarkable. EYES: Normal conjunctiva. Sclera non-icteric. NECK: Supple. No nuchal rigidity. FROM. No JVD. RESPIRATORY: Clear to auscultation. CARDIAC: Regular rate, normal rhythm. Extremities warm and well perfused. Pulses equal. ABDOMEN: Soft, non-distended. RLQ tenderness to palpation. No rebound or guarding. No masses. RECTAL: Deferred. MUSCULOSKELETAL: Chest examination reveals no tenderness. The back is symmetrical on inspection without obvious abnormality. There is right CVA tenderness to palpation. No joint edema. LOWER EXTREMITIES: Calves are equal size bilaterally and non-tender. No edema. No discoloration. NEURO: Normal sensorium. No sensory or motor deficits noted. SKIN: No rash or jaundice noted. Medical Decision & Procedures ER Provider Diagnostic Interpretation: Radiology results as stated below per my review and radiologist interpretation: ABDOMEN AND PELVIS CT WITH IV CONTRAST CT DOSE: 811.40 mGy.cm HISTORY: Right sided pain, prior benito, intract.N/V TECHNIQUE: Multiaxial CT images of the abdomen and pelvis were performed following the use of intravenous contrast. A dose lowering technique was utilized adhering to the principles of ALARA. COMPARISON STUDY: Abdomen and pelvis CT 08/15/2015. FINDINGS: The lung bases are essentially clear. No fractures within the visualized osseous structures. Cholecystectomy. The liver, spleen, adrenal glands, pancreas, and kidneys are unremarkable. No hydronephrosis. No retroperitoneal lymphadenopathy. A few prominent mesenteric lymph nodes. These measure subcentimeter in short axis diameter. The bladder and uterus are unremarkable. Small bilateral ovarian follicles/cysts. Trace pelvic free fluid. This is likely physiologic. The appendix is not well-visualized but appears to be within normal limits. Lumbar subcutaneous edema, unchanged. No bowel wall thickening or obstruction. IMPRESSION: 1. No bowel wall thickening or obstruction. 2. No hydronephrosis. 3. The visualized appendix appears unremarkable. 4. Cholecystectomy. 5. A few prominent mesenteric lymph nodes. These are of uncertain clinical significance and could represent a mild mesenteric adenitis. 6. Small amount of pelvic free fluid. This is likely physiologic. Electronically signed by: Anjel Johnston M.D. 05/29/2017 1:20 PM Dictated Date/Time: 05/29/2017 1:11 PM Laboratory Results 05/29/17 11:31 Red Blood Count 4.90, Mean Corpuscular Volume 84.5, Mean Corpuscular Hemoglobin 29.2, Mean Corpuscular Hemoglobin Concent 34.5, Mean Platelet Volume 9.2, Neutrophils (%) (Auto) 74.8, Lymphocytes (%) (Auto) 17.9, Monocytes (%) (Auto) 5.6, Eosinophils (%) (Auto) 1.0, Basophils (%) (Auto) 0.4, Neutrophils # (Auto) 5.31, Lymphocytes # (Auto) 1.27, Monocytes # (Auto) 0.40, Eosinophils # (Auto) 0.07, Basophils # (Auto) 0.03 05/29/17 11:31 Test 05/29/17 10:30 05/29/17 11:31 Urine Color DK YELLOW Urine Appearance TURBID (CLEAR) Urine pH 6.0 (4.5-7.5) Urine Specific [place] 1.032 (1.000-1.030) Urine Protein 1+ (NEG) Urine Glucose (UA) NEG (NEG) Urine Ketones 3+ (NEG) Urine Occult Blood NEG (NEG) Urine Nitrite NEG (NEG) Urine Bilirubin NEG (NEG) Urine Urobilinogen NEG (NEG) Urine Leukocyte Esterase SMALL (NEG) Urine WBC (Auto) 10-30 /hpf (0-5) Urine RBC (Auto) 0-4 /hpf (0-4) Urine Hyaline Casts (Auto) 1-5 /lpf (0-5) Urine Epithelial Cells (Auto) >30 /lpf (0-5) Urine Bacteria (Auto) 3+ (NEG) Urine Crystals CALCIUM OXALATE (NONE Urine Pathogenic Casts /lpf (0) Urine Mucus PRESENT (NONE PRSENT) White Blood Count 7.10 K/uL (4.8-10.8) Red Blood Count 4.90 M/uL (4.2-5.4) Hemoglobin 14.3 g/dL (12.0-16.0) Hematocrit 41.4 % (37-47) Mean Corpuscular Volume 84.5 fL (80-100) Mean Corpuscular Hemoglobin 29.2 pg (25-34) Mean Corpuscular Hemoglobin Concent 34.5 g/dl (32-36) Platelet Count 295 K/uL (130-400) Mean Platelet Volume 9.2 fL (7.4-10.4) Neutrophils (%) (Auto) 74.8 % Lymphocytes (%) (Auto) 17.9 % Monocytes (%) (Auto) 5.6 % Eosinophils (%) (Auto) 1.0 % Basophils (%) (Auto) 0.4 % Neutrophils # (Auto) 5.31 K/uL (1.4-6.5) Lymphocytes # (Auto) 1.27 K/uL (1.2-3.4) Monocytes # (Auto) 0.40 K/uL (0.11-0.59) Eosinophils # (Auto) 0.07 K/uL (0-0.5) Basophils # (Auto) 0.03 K/uL (0-0.2) RDW Standard Deviation 39.1 fL (36.4-46.3) RDW Coefficient of Variation 13.0 % (11.5-14.5) Immature Granulocyte % (Auto) 0.3 % Immature Granulocyte # (Auto) 0.02 K/uL (0.00-0.02) Anion Gap 10.0 mmol/L (3-11) Est Creatinine Clear Calc Drug Dose 155.3 ml/min Estimated GFR () 141.2 Estimated GFR (Non- 121.8 BUN/Creatinine Ratio 13.1 (10-20) Calcium Level 8.7 mg/dl (8.5-10.1) Total Bilirubin 0.3 mg/dl (0.2-1) Direct Bilirubin < 0.1 mg/dl (0-0.2) Aspartate Amino Transf (AST/SGOT) 28 U/L (15-37) Alanine Aminotransferase (ALT/SGPT) 41 U/L (12-78) Alkaline Phosphatase 246 U/L (45-117) Total Protein 7.3 gm/dl (6.4-8.2) Albumin 3.2 gm/dl (3.4-5.0) Lipase 432 U/L (73-393) Human Chorionic Gonadotropin, Qual NEG (NEG) Laboratory results reviewed by me Medications Administered Medications (Trade) Dose Ordered Sig/Tico Route Start Time Stop Time Status Last Admin Dose Admin Sodium Chloride 1,000 ml @ 999 mls/hr Q1H1M STAT IV 05/29/17 10:19 05/29/17 11:19 DC 05/29/17 11:52 999 MLS/HR Diphenhydramine HCl (Benadryl Inj) 25 mg NOW STAT IV 05/29/17 10:40 05/29/17 10:42 DC 05/29/17 12:18 25 MG Prochlorperazine Edisylate 10 mg/ Syringe 10 ml @ 5 mls/min ONE ONCE IV 05/29/17 12:00 05/29/17 12:01 DC 05/29/17 12:18 5 MLS/MIN Ceftriaxone Sodium (Rocephin Inj) 1 gm NOW STAT IV 05/29/17 13:46 05/29/17 13:47 DC 05/29/17 14:39 1 GM Ondansetron HCl (Zofran Inj) 4 mg NOW STAT IV 05/29/17 13:51 05/29/17 13:52 DC 05/29/17 14:39 4 MG Potassium Chloride (Klor-Con M10) 40 meq NOW STAT PO 05/29/17 13:51 05/29/17 13:53 DC 05/29/17 14:40 40 MEQ ED Course 1019: The patient was evaluated in room B6. A complete history and physical exam was performed. Ordered Sodium Chloride 1000 ml @ 999 mls/hr IV 1040: Ordered Benadryl Inj 25 mg IV, Compazine 10 mg IV 1200: Ordered Prochlorperazine Edisylate 10 mg/Syringe 10 ml @ 5 mls/min IV 1346: Ordered Rocephin Inj 1 gm IV, Potassium Chloride 10 meq IV 1351: Ordered Potassium Chloride 40 meq PO, Ordered Zofran Inj 4 mg IV 1510: The patient was reevaluated and is doing very well. She desires discharge. Return instructions were outlined and she was discharged. Medical Decision Prior records/ancillary studies reviewed. Triage Nursing notes reviewed and agree them. Additional history obtained from the family. The patient's history was concerning for nausea, vomiting, and abdominal pain. Differential diagnosis: Etiologies such as cyclic vomiting syndrome, UTI, gastroenteritis, food borne illness, infections, appendicitis, diverticulitis, inflammatory bowel disease, GI bleed, biliary pathology, as well as others were entertained. Physical examination findings: As above. ER treatment provided: IV hydration with normal saline IV Compazine IV Benadryl On reassessment the patient was still nauseated IV Rocephin IV Zofran Oral potassium On reassessment the patient felt better. Patient was tolerating p.o. intake. Diagnostics interpretation by me: The labs revealed marked CBC and chemistry panel except for mild hypokalemia. Patient's urinalysis is concerning for infection. She did note some dysuria. Imaging studies: CT scan as above The patient has long history of cyclic vomiting. She is to have a UTI does have some flank pain. This could perhaps an early pyelo. The patient was given IV Rocephin. Tolerating oral intake. Her potassium was repleted. She feels comfortable and desired discharge. She has antinausea medication at home. By the evaluation outlined above emergent etiologies such as appendicitis, diverticulitis, mesenteric ischemia, aortic pathology, inflammatory bowel disease, renal colic, PUD, biliary pathology,, as well as others were deemed relatively unlikely. The chin and significant other were informed about the findings as listed above. All questions were answered and they were pleased with the treatment. Return instructions were outlined and the patient was discharged in stable condition. Outpatient prescription management: Bactrim Potassium Referral: The patient was referred to her primary care physician for follow-up in 2 to 3 days for a recheck of the current condition. Medication Reconcilliation Current Medication List: was personally reviewed by me Blood Pressure Screening Patient's blood pressure: Normal blood pressure Blood pressure disposition: Did not require urgent referral Impression Primary Impression: Vomiting Additional Impression: UTI (urinary tract infection) Scribe Attestation The scribe's documentation has been prepared under my direction and personally reviewed by me in its entirety. I confirm that the note above accurately reflects all work, treatment, procedures, and medical decision making performed by me. Departure Information Dispostion Home / Self-Care Prescriptions Potassium Chloride Microencaps (POTASSIUM CHLORIDE ER) 20 Meq Tab 1 TAB PO DAILY for 3 Days, #3 TAB Prov: Jefry Cha MD 05/29/17 Sulfa/Trimethoprim (Bactrim Ds 800MG/160MG) Tab 1 TAB PO BID, #14 TAB Prov: Jefry Cha MD 05/29/17 Referrals Mirtha Arellano M.D. (PCP) Forms HOME CARE DOCUMENTATION FORM, IMPORTANT VISIT INFORMATION Patient Instructions My [facility] Additional Instructions Start taking the antibiotic Bactrim tomorrow. Trimethoprim-Sulfamethoxazole(Bactrim DS): Take one pill twice daily for 7 days for your urine infection. All antibiotics can cause diarrhea. If this occurs and you feel worse or it does not resolve in 1-2 days follow up with your doctor or return to the Emergency Department as this could be signs of serious underlying problems. Any medication can cause an allergic reaction, stop the pills immediately and return to the ER for rash, hives, breathing difficulties, or swelling. Potassium 20 mEq one daily for 3 days Continue anti-nausea medication as prescribed. Ibuprofen(Motrin, Advil) may be used for fever or pain. Use 600mg every six hours as needed. Take with food. Avoid using more than 2400mg in a 24 hour period. Do not use 2400mg per day for more than three consecutive days without physician direction. Prolonged inappropriate use can lead to stomach upset or ulcers. (AND/OR) Acetaminophen(Tylenol) may be used for fever or pain. Use 1000mg every six hours as needed. Avoid using more than 4000mg in a 24 hour period. Rest and drink plenty of fluids. Continue current medications. Return to the ER immediately for worsening or persistent abdominal pain, vomiting, fevers, back or flank pain, worsening of your condition, or as needed. Follow up with your primary physician within 2-3 days for a recheck of the current condition. Problem Qualifiers
== END 2017-05-29 15:59 | disposition home or self-care (01) ==
LOC: C.EDB 10:01
DX: R11.10 Vomiting, unspecified (principal); N39.0 Urinary tract infection, site not specified; M19.90 Unspecified osteoarthritis, unspecified site; K21.9 Gastro-esophageal reflux disease without esophagitis; G40.909 Epilepsy, unspecified, not intractable, without status epilepticus; Z90.49 Acquired absence of other specified parts of digestive tract; Z98.890 Other specified postprocedural states; Z90.89 Acquired absence of other organs; Z83.3 Family history of diabetes mellitus; Z82.0 Family history of epilepsy and other diseases of the nervous system; Z80.8 Family history of malignant neoplasm of other organs or systems; Z79.899 Other long term (current) drug therapy

== ENCOUNTER 2020-01-23 09:59 | Inpatient (IN) ==
[2020-01-23] MEDS ORDERED: SODIUM CHLORIDE 0.9% 1000ML 1,000 ML IV ONE (10:47)
[2020-01-23 11:37] LABS: Basophils # (auto) 0.04 K/uL (0-0.2); Basophils % (auto) 0.5 %; Eosinophils # (auto) 0.06 K/uL (0-0.5); Eosinophils % (auto) 0.8 %; Hemoglobin 14.5 g/dL (12.0-16.0); Immature Granulocytes # (auto) 0.03 K/uL (0.00-0.02); Immature Granulocytes % (auto) 0.4 %; Lymphocytes # (auto) 1.28 K/uL (1.2-3.4); Lymphocytes % (auto) 16.7 %; Mean Corpuscular Hemoglobin 29.5 pg (25-34); Mean Corpuscular Volume 89.6 fL (80-100); Mean Platelet Volume 8.9 fL (7.4-10.4); Monocytes % (auto) 5.2 %; Neutrophils # (auto) 5.86 K/uL (1.4-6.5); Neutrophils % (auto) 76.4 %; Platelet Count 374 K/uL (130-400); RDW Coefficient of Variation 12.7 % (11.5-14.5); RDW Standard Deviation 41.6 fL (36.4-46.3); Red Blood Count 4.91 M/uL (4.2-5.4); White Blood Count 7.67 K/uL (4.8-10.8)
[2020-01-23 11:55] LABS: Alanine Aminotransferase 25 U/L (12-78); Albumin Level 3.5 gm/dl (3.4-5.0); Aspartate Aminotransferase 27 U/L (15-37); BUN Creatinine Ratio 14.6 (10-20); Blood Urea Nitrogen 13 mg/dl (7-18); Calcium 9.1 mg/dl (8.5-10.1); Carbon Dioxide 26 mmol/L (21-32); Chloride 104 mmol/L (98-107); Est GFR (African American) 94.1; Est GFR (Non-African American) 81.2; Glucose 90 mg/dl (70-99); Potassium 4.7 mmol/L (3.5-5.1); Sodium 135 mmol/L (136-145)
[2020-01-23 12:05] LABS: Albumin Globulin Ratio 0.9 (0.9-2); Alkaline Phosphatase 175 U/L (45-117); Bilirubin,Total 0.2 mg/dl (0.2-1); Globulin 4.1 gm/dl (2.5-4.0); Total Protein 7.6 gm/dl (6.4-8.2)
--- NOTE | 2020-01-23 12:24 | CT Scan Report ---
CT SCAN OF THE BRAIN WITHOUT IV CONTRAST CLINICAL HISTORY: Decreased responsiveness. COMPARISON STUDY: No priors. TECHNIQUE: Unenhanced axial CT scan of the brain is performed from the vertex to the skull base. A d ose lowering technique was utilized adhering to the principles of ALARA. CT DOSE: 614.27 mGy.cm FINDINGS: Brain parenchyma: The brain parenchyma is normal in appearance. There is no hemorrhage, mass effect, or evidence of acute territorial ischemia by CT criteria. Pena-white matter differentiation is preser lauren. No extra-axial fluid collection is seen. Ventricles, sulci, cisterns: Normal in configuration. Intracranial vasculature: The visualized intracranial vasculature at the skull base is normal in appe arance. Calvarium: Unremarkable. Sinuses and mastoids: The visualized paranasal sinuses are clear. The mastoid air cells are well pneu matized. Orbits: The bony orbits are grossly intact. IMPRESSION: There is no hemorrhage, mass effect, or evidence of acute territorial ischemia by CT crit joanne. ACT 112: Negative or not required by law. Electronically signed by: Inderjit Garcia M.D. 01/23/2020 12:22 PM
[2020-01-23 12:36] LABS: Appearance Urine Clear (Clear); Bacteria Urine Automated Negative (Negative); Bilirubin Urine Negative (Negative); Blood Urine 2+ (Negative); Cast Urine Automated 0 /lpf (0-5); Color Urine Yellow; Glucose Urine UA Negative (Negative); Ketones Urine Negative (Negative); Leukocyte Esterase Urine Negative (Negative); Nitrite Urine Negative (Negative); Protein Urine Negative (Negative); Urobilinogen Urine Negative (Negative); WBC Urine Automated 0 /hpf (0-5); pH Urine >= 9.0 (4.5-7.5)
[2020-01-23 12:59] LABS: Amphetamines+Metham, Urine Neg (Neg); Barbiturates, Urine Neg (Neg); Benzodiazepine, Urine Neg (Neg); Cocaine, Urine Neg (Neg); MDMA (Ecstacy), Urine Neg (Neg); Methadone, Urine Neg (Neg); Opiate, Urine Neg (Neg); Phencyclidine, Urine Neg (Neg)
[2020-01-23] MEDS ORDERED: ACETAMINOPHEN 325 MG TAB PO PRN (13:34)
[2020-01-23] MEDS ORDERED: POLYETHYLENE (MIRALAX) 17 GM PACK PO PRN (13:34)
[2020-01-23] MEDS ORDERED: SCOPOLAMINE 1.5 MG TDSY TD PRN (13:36)
[2020-01-23] MEDS ORDERED: TIZANIDINE HCL 4 MG TABLET PO PRN (13:36)
[2020-01-23] MEDS ORDERED: ONDANSETRON 4 MG OD TAB PO PRN (13:36)
[2020-01-23] MEDS ORDERED: RIZATRIPTAN BENZOATE 10 MG TAB PO PRN (13:36)
[2020-01-23] MEDS ORDERED: PHENYTOIN SODIUM ER 100 MG CAP PO SCH (14:00)
[2020-01-23] MEDS ORDERED: FLUTICASONE/VILANTEROL 100/25MCG 14 PUFFS/INHALER INH PRN (14:58)
[2020-01-23] MEDS: ORAL CONTRACEPTIVE~ORDER AWAITING ACTION SCH (16:25)
--- NOTE | 2020-01-23 16:41 | History & Physical Report ---
Date of Service January 23, 2020 Assessment & Plan (1) Altered mental state: Unsure the cause. may be neuro vs psych. Patient does have underlying bipolar disorder and sometimes has hallucinations. Perhaps she has underlying schizophrenia. In the meantime, will rule out neuro causes: will consult Dr. Crowe, obtain lyme, TSH, dilantin level, b12 level, sed rate. will continue to monitor. may benefit from psych consult. (2) Restless leg syndrome: stable will resume home meds (3) Epilepsy: continue home med (4) Depression: continue home meds (5) Hallucinations: Has history of hallucinations in the past, as per her father. Currently not having one (6) Bipolar 1 disorder: continue home meds Admission and Anticipated Discharge Date Admission Date: January 23, 2020 History of Present Illness Chief Complaint: lethargy Primary Care Provider: Mirtha Arellano This is a pleasant 34 yo female who is brought in by her father. She has history of seizures and Bipolar disease. She was recently seen by her Neurologist today. However she was lethargic during the appointment and as she was walking out, she couldn't move her legs and needed to sit. Her father brought her in and she appeared catatonic as per ER provide. After iVF she improved and is now conversant and following commands and moving all extremities. Allergies Allergy/AdvReac Type Severity Reaction Status Date / Time gluten Allergy Mild VOMITING Verified 01/23/20 13:00 gabapentin AdvReac Unknown confusion Verified 01/23/20 13:00 prednisone AdvReac Unknown flushing Verified 01/23/20 13:00 and dizziness promethazine AdvReac Unknown CAUSED Verified 01/23/20 13:00 SEIZURE Home Medications Home Medications Medication Instructions Recorded Confirmed Type albuterol sulfate 90 mcg/actuation 2 puffs INH Q4H PRN gm 12/04/19 01/23/20 History aerosol inhaler amitriptyline 75 mg tablet 75 mg PO HS 12/04/19 01/23/20 History aripiprazole 20 mg tablet 20 mg PO DAILY 12/04/19 01/23/20 History fludrocortisone 0.1 mg tablet 0.1 mg PO BID tab 12/04/19 01/23/20 History folic acid 1 mg tablet 1 mg PO DAILY 12/04/19 01/23/20 History levonorgestrel 0.15 mg-ethinyl 1 tab PO DAILY 12/04/19 01/23/20 History estradiol 0.03 mg tablet meloxicam 15 mg tablet 15 mg PO DAILY 12/04/19 01/23/20 History ondansetron 8 mg disintegrating 8 mg PO Q8H PRN 12/04/19 01/23/20 History tablet scopolamine base 1 mg over 3 days 1 patch TD Q3D PRN 12/04/19 01/23/20 History transdermal patch tizanidine 4 mg capsule 4 mg PO Q8H PRN 12/04/19 01/23/20 History venlafaxine 150 mg 150 mg PO BID 12/05/19 01/23/20 History capsule,extended release 24 hr budesonide-formoterol [Symbicort] 2 puff INHALATION BID PRN 01/16/20 01/23/20 History lacosamide 200 mg tablet 200 mg PO BID 01/16/20 01/23/20 History magnesium 250 mg PO DAILY 01/16/20 01/23/20 History phenytoin sodium extended 100 mg PO TID #30 cap 01/16/20 01/23/20 Rx [Dilantin Extended] riboflavin (vitamin B2) [Vitamin 100 mg PO BID 01/16/20 01/23/20 History B-2] rizatriptan 5 mg PO DIRECTED PRN 01/16/20 01/23/20 History Past Med/Surg History Medical History Estevez's esophagus Bipolar 1 disorder Epilepsy GERD (gastroesophageal reflux disease) Migraine headache Other cervical disc displacement, high cervical region Restless leg syndrome Thyrotoxicosis NOS w/o crisis Surgical History H/O colonoscopy H/O esophagogastroduodenoscopy H/O toe surgery S/P cholecystectomy S/P ear surgery S/P tonsillectomy and adenoidectomy Family History Grandmother (Maternal) Heart disease Father Diabetes Heart disease Brother Migraine headache Grandmother (Paternal) Heart disease Social History Smoking Status: Former smoker Age Quit Using Tobacco: 28; Cigarettes Per Day: one pack per day; Second Hand Exposure: No; Do You Dip or Chew Tobacco: No; Tobacco Cessation Education Requested by Patient: No Hx Alcohol Use: No Hx Substance Use: No Preferred Language: Italian Easter Bunny Required: No Beliefs That Will Affect Care: None Current Living Situation: Family current occupational status: disabled Other Information That Helps Us Care for You: No other: also security disability for the last 2 years because of multiple medical Feels Safe at Home: Yes Safety Concerns: Feels Safe At This Time Review of Systems Constitutional: no sweats and no malaise Eyes: no decreased night vision and no spots in vision Ear, Nose, Mouth, Throat: no ear trauma and no hyperacusis Respiratory: no change in sputum Cardiovascular: no chest pain with activity Gastrointestinal: no bloating Genitourinary: no urinary frequency Musculoskeletal: no deformity Integumentary: no rash and no non-healing lesions Psychiatric: + depression; no suicidal ideation Endocrine: no polydipsia and no cold intolerance Hematologic / Lymphatic: no coagulopathy Physical Exam Constitutional: WD/WN, vitals as above well developed Eyes: PERRL, conjunctivae normal, anicteric sclerae ENMT: external ear and nose normal, oropharynx normal Neck: trachea midline, no thyromegaly Respiratory: normal respiratory effort, lungs clear to auscultation Cardiovascular: RRR, no murmur, no edema Gastrointestinal (Abdomen): normal bowel sounds, soft, nontender, no hepatosplenomegaly Musculoskeletal: no cyanosis or clubbing, extremities motor strength 5/5 Skin: no rashes, warm and dry Neurologic: PERRL, EOMI, accommodation nl, no face palsy, no dysarthria Psychiatric: A+Ox3, euthymic affect Results & Data Results & Data ([facility]) Vital Signs (Past 12 Hours) Vital Signs Temp Pulse Pulse Resp BP BP Pulse Ox 01/23/20 16:07 36.3 C L 94 H 20 144/97 H 98 01/23/20 15:15 98 H 24 134/96 98 01/23/20 15:01 98 H 18 98 01/23/20 15:00 93 H 16 131/87 96 01/23/20 14:45 96 H 18 131/88 99 01/23/20 14:31 95 H 15 99 01/23/20 14:30 92 H 15 128/97 99 01/23/20 14:15 91 H 22 127/86 98 01/23/20 14:01 95 H 32 H 136/99 97 01/23/20 14:00 96 H 28 H 96 01/23/20 13:45 98 H 23 136/88 99 01/23/20 13:31 93 H 27 H 96 01/23/20 13:30 94 H 27 H 134/89 97 01/23/20 13:17 95 H 29 H 139/96 99 01/23/20 13:00 96 H 38 H 119/83 100 01/23/20 12:45 98 H 31 H 132/88 98 01/23/20 12:30 96 H 19 128/78 100 01/23/20 12:15 94 H 21 119/90 100 01/23/20 12:01 94 H 23 99 01/23/20 12:00 99 H 23 123/89 99 01/23/20 11:46 96 H 37 H 98 01/23/20 11:45 97 H 39 H 131/87 98 01/23/20 11:34 100 H 19 135/106 H 98 01/23/20 11:33 101 H 24 01/23/20 11:15 98 H 37 H 01/23/20 11:01 99 H 32 H 96 01/23/20 11:00 100 H 36 H 120/86 96 01/23/20 10:46 100 H 25 H 96 01/23/20 10:45 102 H 38 H 125/87 97 01/23/20 10:31 102 H 37 H 97 01/23/20 10:30 102 H 36 H 115/80 97 01/23/20 10:29 102 H 34 H 97 01/23/20 10:25 102 H 35 H 151/139 H 97 01/23/20 10:13 37.2 C 116 H 20 114/75 97 PG Care Time/CCT Total # of Minutes Spent Total Time Spent with Patient: Total time spent is greater than 50% in coordination of care (as documented) at patient's floor/unit and/or counseling patient: Coding Level of Care Code 22699 Initial Inpt Care Lvl 3 Diagnoses Altered mental state R41.82 Restless leg syndrome G25.81 Epilepsy G40.909 Depression F32.9 Hallucinations R44.3 Bipolar 1 disorder F31.9 Time Spent (min) 35
[2020-01-23] MEDS: IBUPROFEN 600 MG TAB PO PRN (17:03)
[2020-01-23] MEDS: PHENYTOIN SODIUM ER 100 MG CAP PO SCH ×2 (17:08→20:35)
--- NOTE | 2020-01-23 17:16 | Emergency Department Note ---
History of Present Illness General Chief complaint: Illness Stated complaint: UNRESPONSIVE Time Seen by Provider: 01/23/20 10:31 Source: family Mode of arrival: ambulatory Limitations: altered mental status History of Present Illness Maximum Pain Intensity: 8 This patient is a 34-year-old female who presents to the emergency department accompanied by her father for evaluation of unresponsiveness. The patient's fa ther reports that they went to the patient's neurology appointment this morning and when they arrived there, she was talking and normal, however by the time they left, she was no longer able to walk and he had to pressure out in a wheelchair. He states that the patient will look at him when he talks to her, but is otherwise not responding to him. He states this has happened before and describes these as "cycles." He states that the patient will start moving more slowly and acting strange, then becomes unresponsive which can last for several hours. The patient does have a seizure history but he denies any recent seizures. He reports that sometimes, the symptoms seem to occur before the p atient has a seizure. He states that the patient had a similar episode last week and was seen here for seizures at that time. He states that after discharge, she still did not get back to her baseline and seemed to be very groggy when she returned home. He states that the patient has been hospitalized for this before and does tend to improve after hospitalization. He states that they are not sure what causes these episodes. Home Medications Home Medications Medication Instructions Recorded Confirmed Type albuterol sulfate 90 mcg/actuation 2 puffs INH Q4H PRN gm 12/04/19 01/23/20 History aerosol inhaler amitriptyline 75 mg tablet 75 mg PO HS 12/04/19 01/23/20 History aripiprazole 20 mg tablet 20 mg PO DAILY 12/04/19 01/23/20 History fludrocortisone 0.1 mg tablet 0.1 mg PO BID tab 12/04/19 01/23/20 History folic acid 1 mg tablet 1 mg PO DAILY 12/04/19 01/23/20 History levonorgestrel 0.15 mg-ethinyl 1 tab PO DAILY 12/04/19 01/23/20 History estradiol 0.03 mg tablet meloxicam 15 mg tablet 15 mg PO DAILY 12/04/19 01/23/20 History ondansetron 8 mg disintegrating 8 mg PO Q8H PRN 12/04/19 01/23/20 History tablet scopolamine base 1 mg over 3 days 1 patch TD Q3D PRN 12/04/19 01/23/20 History transdermal patch tizanidine 4 mg capsule 4 mg PO Q8H PRN 12/04/19 01/23/20 History venlafaxine 150 mg 150 mg PO BID 12/05/19 01/23/20 History capsule,extended release 24 hr budesonide-formoterol [Symbicort] 2 puff INHALATION BID PRN 01/16/20 01/23/20 History magnesium 250 mg PO DAILY 01/16/20 01/23/20 History riboflavin (vitamin B2) [Vitamin 100 mg PO BID 01/16/20 01/23/20 History B-2] rizatriptan 5 mg PO DIRECTED PRN 01/16/20 01/23/20 History hydroxyzine HCl 10 mg PO Q4H 14 Days #84 tab 01/24/20 Rx lamotrigine [Lamictal] 25 mg PO BID 14 Days #28 tab 01/24/20 Rx lacosamide 200 mg tablet 200 mg PO BID 30 Days #60 tab 01/25/20 Rx Allergies Allergy/AdvReac Type Severity Reaction Status Date / Time gluten Allergy Mild VOMITING Verified 01/23/20 13:00 gabapentin AdvReac Unknown confusion Verified 01/23/20 13:00 prednisone AdvReac Unknown flushing Verified 01/23/20 13:00 and dizziness promethazine AdvReac Unknown CAUSED Verified 01/23/20 13:00 SEIZURE Past Med/Surg History Medical History Estevez's esophagus Bipolar 1 disorder Epilepsy GERD (gastroesophageal reflux disease) Migraine headache Other cervical disc displacement, high cervical region Restless leg syndrome Thyrotoxicosis NOS w/o crisis Surgical History H/O colonoscopy H/O esophagogastroduodenoscopy H/O toe surgery S/P cholecystectomy S/P ear surgery S/P tonsillectomy and adenoidectomy Family History Grandmother (Maternal) Heart disease Father Diabetes Heart disease Brother Migraine headache Grandmother (Paternal) Heart disease Social History Smoking Status: Former smoker Age Quit Using Tobacco: 28; Cigarettes Per Day: one pack per day; Second Hand Exposure: No; Hx Alcohol Use: No Hx Substance Use: No Preferred Language: [place] Administrative Assistant Required: No Current Living Situation: Family current occupational status: disabled other: also security disability for the last 2 years because of multiple medical Feels Safe at Home: Yes Review of Systems A total of 10 systems reviewed and were otherwise negative Physical Exam Vital Signs Vital Signs - 24 hr 01/23/20 10:13 01/23/20 10:25 01/23/20 10:29 Temperature 37.2 C Temperature Source Oral Pulse Rate 116 H 102 H 102 H Pulse Rate from SpO2 Sensor 102 H 102 H Respiratory Rate 20 35 H 34 H Blood Pressure 114/75 151/139 H Blood Pressure Mean 88 143 Pulse Oximetry 97 97 97 Oxygen Delivery Method Room Air Sepsis Recent Fever Within 48 Hours No Sepsis New/Unexplained Change in Mental Status N/A Sepsis Action Taken by Nursing No Action Required 01/23/20 10:30 01/23/20 10:31 01/23/20 10:45 Temperature Temperature Source Pulse Rate 102 H 102 H 102 H Pulse Rate from SpO2 Sensor 102 H 102 H 102 H Respiratory Rate 36 H 37 H 38 H Blood Pressure 115/80 125/87 Blood Pressure Mean 93 101 Pulse Oximetry 97 97 97 Oxygen Delivery Method Sepsis Recent Fever Within 48 Hours Sepsis New/Unexplained Change in Mental Status Sepsis Action Taken by Nursing 01/23/20 10:46 01/23/20 11:00 01/23/20 11:01 Temperature Temperature Source Pulse Rate 100 H 100 H 99 H Pulse Rate from SpO2 Sensor 101 H 100 H 99 H Respiratory Rate 25 H 36 H 32 H Blood Pressure 120/86 Blood Pressure Mean 95 Pulse Oximetry 96 96 96 Oxygen Delivery Method Sepsis Recent Fever Within 48 Hours Sepsis New/Unexplained Change in Mental Status Sepsis Action Taken by Nursing 01/23/20 11:15 01/23/20 11:33 01/23/20 11:34 Temperature Temperature Source Pulse Rate 98 H 101 H 100 H Pulse Rate from SpO2 Sensor 100 H Respiratory Rate 37 H 24 19 Blood Pressure 135/106 H Blood Pressure Mean 125 Pulse Oximetry 98 Oxygen Delivery Method Sepsis Recent Fever Within 48 Hours Sepsis New/Unexplained Change in Mental Status Sepsis Action Taken by Nursing 01/23/20 11:45 01/23/20 11:46 01/23/20 12:00 Temperature Temperature Source Pulse Rate 97 H 96 H 99 H Pulse Rate from SpO2 Sensor 97 H 97 H 100 H Respiratory Rate 39 H 37 H 23 Blood Pressure 131/87 123/89 Blood Pressure Mean 96 102 Pulse Oximetry 98 98 99 Oxygen Delivery Method Sepsis Recent Fever Within 48 Hours Sepsis New/Unexplained Change in Mental Status Sepsis Action Taken by Nursing 01/23/20 12:01 01/23/20 12:15 01/23/20 12:30 Temperature Temperature Source Pulse Rate 94 H 94 H 96 H Pulse Rate from SpO2 Sensor 95 H 94 H 96 H Respiratory Rate 23 21 19 Blood Pressure 119/90 128/78 Blood Pressure Mean 108 104 Pulse Oximetry 99 100 100 Oxygen Delivery Method Sepsis Recent Fever Within 48 Hours Sepsis New/Unexplained Change in Mental Status Sepsis Action Taken by Nursing 01/23/20 12:45 01/23/20 13:00 01/23/20 13:17 Temperature Temperature Source Pulse Rate 98 H 96 H 95 H Pulse Rate from SpO2 Sensor 97 H 97 H 95 H Respiratory Rate 31 H 38 H 29 H Blood Pressure 132/88 119/83 139/96 Blood Pressure Mean 108 85 107 Pulse Oximetry 98 100 99 Oxygen Delivery Method Sepsis Recent Fever Within 48 Hours Sepsis New/Unexplained Change in Mental Status Sepsis Action Taken by Nursing 01/23/20 13:30 01/23/20 13:31 Temperature Temperature Source Pulse Rate 94 H 93 H Pulse Rate from SpO2 Sensor 94 H 94 H Respiratory Rate 27 H 27 H Blood Pressure 134/89 Blood Pressure Mean 101 Pulse Oximetry 97 96 Oxygen Delivery Method Sepsis Recent Fever Within 48 Hours Sepsis New/Unexplained Change in Mental Status Sepsis Action Taken by Nursing VITALS: Vitals are noted on the nurse's note and reviewed by myself. GENERAL: This is a 34-year-old female, lying supine in bed, well-developed well- nourished. SKIN: The skin was without rashes. HEAD: Normocephalic atraumatic. EARS: External auditory canals clear, tympanic membranes pearly pena without erythema or effusion bilaterally. EYES: Pupils equal round and reactive to light and accommodation. MOUTH: Mucous membranes moist. Tonsils are not enlarged. Pharynx without erythema or exudate. NECK: Supple without nuchal rigidity. No lymphadenopathy. HEART: Regular rate and rhythm without murmurs gallops or rubs. LUNGS: Clear to auscultation bilaterally without wheezes, rales or rhonchi. ABDOMEN: Positive bowel sounds x 4. Soft, nontender to palpation. MUSCULOSKELETAL: No deformities. NEURO: Patient is somewhat responsive. She will move her eyes towards you and responds to her name. She follows some commands, including squeezing my fingers and opening her mouth. Patient does not respond verbally. Course Reevaluation(s) Reevaluation #1: Patient was reevaluated after receiving IV fluids and is more responsive at this time. She is answering questions, but her father reports that she is still not acting like herself and has been saying some unusual things. Consultations Consultation #1: Dr. Aj Bae [facility] hospitalist Administered Medications Discontinued Medications Amitriptyline HCl (Amitriptyline Hcl 25 Mg Tab) 75 mg PO HS AMELIA Stop: 02/22/20 20:59 Last Admin: 01/23/20 20:38 Dose: 75 mg Documented by: [id number] Aripiprazole (Aripiprazole 10 Mg Tab) 20 mg PO DAILY AMELIA Stop: 02/23/20 08:59 Last Admin: 01/24/20 08:21 Dose: 20 mg Documented by: [id number] Fludrocortisone Acetate (Fludrocortisone Acetate 0.1 Mg Tab) 0.1 mg PO BID AMELIA Stop: 02/22/20 20:59 Last Admin: 01/24/20 10:29 Dose: 0.1 mg Documented by: [id number] Admin: 01/23/20 20:35 Dose: 0.1 mg Documented by: [id number] Folic Acid (Folic Acid 1 Mg Tab) 1 mg PO DAILY AMELIA Stop: 02/23/20 08:59 Last Admin: 01/24/20 08:22 Dose: 1 mg Documented by: [id number] Gadobutrol (Gadobutrol 65ml Vial) 8 ml IV ONCE ONE Stop: 01/24/20 13:19 Last Admin: 01/24/20 13:19 Dose: 8 ml Documented by: [id number] Sodium Chloride (Nss 1000ml) 1,000 mls @ 999 mls/hr IV .Q1H1M ONE Stop: 01/23/20 11:47 Last Infusion: 01/23/20 16:24 Dose: 0 mls/hr Documented by: [id number] Admin: 01/23/20 11:30 Dose: 999 mls/hr Documented by: [id number] Ibuprofen (Ibuprofen 600 Mg Tab) 600 mg PO Q8H PRN PRN Reason: pain Stop: 02/22/20 16:39 Last Admin: 01/24/20 09:00 Dose: 600 mg Documented by: [id number] Admin: 01/23/20 17:03 Dose: 600 mg Documented by: [id number] Ioversol (Ioversol 100ml) 93 ml IV ONCE ONE Stop: 01/23/20 22:16 Last Admin: 01/23/20 22:16 Dose: 93 ml Documented by: [id number] Lacosamide (Lacosamide 50 Mg Tablet) 200 mg PO BID [facility] Stop: 02/22/20 20:59 Last Admin: 01/24/20 08:22 Dose: 200 mg Documented by: [id number] Admin: 01/23/20 20:38 Dose: 200 mg Documented by: [id number] Lamotrigine (Lamotrigine 25 Mg Tab) 25 mg PO BID AMELIA Stop: 02/23/20 11:29 Last Admin: 01/24/20 13:42 Dose: 25 mg Documented by: [id number] Magnesium Oxide (Magnesium Oxide 400 Mg Tab) 400 mg PO DAILY [facility] Stop: 02/23/20 08:59 Last Admin: 01/24/20 08:22 Dose: 400 mg Documented by: [id number] Miscellaneous (Oral Contraceptive~Order Awaiting Action) 1 ea N/A QS [facility] Stop: 02/22/20 15:59 Last Admin: 01/24/20 17:26 Dose: Not Given Documented by: [id number] Admin: 01/24/20 08:21 Dose: Not Given Documented by: [id number] Admin: 01/24/20 00:08 Dose: Not Given Documented by: [id number] Admin: 01/23/20 16:25 Dose: Not Given Documented by: [id number] Miscellaneous (Check Scopolamine Patch Placement) 1 ea N/A QS [facility] Stop: 02/23/20 07:59 Last Admin: 01/24/20 17:25 Dose: Not Given Documented by: [id number] Admin: 01/24/20 08:21 Dose: Not Given Documented by: [id number] Phenytoin Sodium (Phenytoin Sodium Er 100 Mg Cap) 100 mg PO TID AMELIA Stop: 02/22/20 13:59 Last Admin: 01/23/20 17:05 Dose: Not Given Documented by: [id number] Phenytoin Sodium (Phenytoin Sodium Er 100 Mg Cap) 100 mg PO TID [facility] Stop: 02/22/20 16:58 Last Admin: 01/24/20 08:22 Dose: 100 mg Documented by: [id number] Admin: 01/23/20 20:35 Dose: 100 mg Documented by: [id number] Admin: 01/23/20 17:08 Dose: 100 mg Documented by: [id number] Polyethylene Glycol (Polyethylene (Miralax) 17 Gm Pack) 17 gm PO DAILY PRN PRN Reason: Constipation Stop: 02/22/20 13:33 Last Admin: 01/24/20 10:29 Dose: 17 gm Documented by: [id number] Venlafaxine HCl (Venlafaxine Hcl Xr 150 Mg Capxr) 150 mg PO BID [facility] Stop: 02/22/20 20:59 Last Admin: 01/24/20 08:22 Dose: 150 mg Documented by: [id number] Admin: 01/23/20 20:39 Dose: 150 mg Documented by: [id number] Medical Decision Making Differential Diagnosis Infection, hypoglycemia, electrolyte abnormalities, overdose, toxicologic, cardiac sources, intracerebral event, neurologic, trauma, as well as other pathologies. Medical Records Attestation: I reviewed the patient's medical records. Home Medications Current Medication List: was personally reviewed by me Laboratory Data Attestation: I reviewed the patient's lab results. Result diagrams: 01/23/20 11:14 01/23/20 11:14 Lab Results 01/23/20 01/23/20 01/23/20 Range/Units 11:14 11:14 11:14 WBC 7.67 (4.8-10.8) K/uL RBC 4.91 (4.2-5.4) M/uL Hgb 14.5 (12.0-16.0) g/dL Hct 44.0 (37-47) % MCV 89.6 (80-100) fL MCH 29.5 (25-34) pg MCHC 33.0 (32-36) g/dL RDW Std Deviation 41.6 (36.4-46.3) fL RDW Coeff of Severiano 12.7 (11.5-14.5) % Plt Count 374 (130-400) K/uL MPV 8.9 (7.4-10.4) fL Immature Gran % (Auto) 0.4 % Neut % (Auto) 76.4 % Lymph % (Auto) 16.7 % Rhea % (Auto) 5.2 % Eos % (Auto) 0.8 % Baso % (Auto) 0.5 % Neut # (Auto) 5.86 (1.4-6.5) K/uL Lymph # (Auto) 1.28 (1.2-3.4) K/uL Rhea # (Auto) 0.40 (0.11-0.59) K/uL Eos # (Auto) 0.06 (0-0.5) K/uL Baso # (Auto) 0.04 (0-0.2) K/uL Immature Gran # (Auto) 0.03 H (0.00-0.02) K/uL ESR (0-21) mm/hr Sodium 135 L (136-145) mmol/L Potassium 4.7 (3.5-5.1) mmol/L Chloride 104 (98-107) mmol/L Carbon Dioxide 26 (21-32) mmol/L Anion Gap 5.0 (3-11) BUN 13 (7-18) mg/dl Creatinine 0.91 (0.6-1.2) mg/dl Est Cr Clr Drug Dosing Not Reportable Est GFR ( Amer) 94.1 Est GFR (Non-Af Amer) 81.2 BUN/Creatinine Ratio 14.6 (10-20) Glucose 90 (70-99) mg/dl Calcium 9.1 (8.5-10.1) mg/dl Total Bilirubin 0.2 (0.2-1) mg/dl AST 27 (15-37) U/L ALT 25 (12-78) U/L Alkaline Phosphatase 175 H (45-117) U/L Total Protein 7.6 (6.4-8.2) gm/dl Albumin 3.5 (3.4-5.0) gm/dl Globulin 4.1 H (2.5-4.0) gm/dl Albumin/Globulin Ratio 0.9 (0.9-2) TSH 4.870 H (0.300-4.500) uIu/ml Urine Color Urine Appearance (Clear) Urine pH (4.5-7.5) Ur Specific [place] (1.000-1.030) Urine Protein (Negative) Urine Glucose (UA) (Negative) Urine Ketones (Negative) Urine Blood (Negative) Urine Nitrite (Negative) Urine Bilirubin (Negative) Urine Urobilinogen (Negative) Ur Leukocyte Esterase (Negative) Urine WBC (Auto) (0-5) /hpf Urine RBC (Auto) (0-4) /hpf U Hyaline Cast (Auto) (0-5) /lpf U Epithel Cells (Auto) (0-5) /lpf Urine Bacteria (Auto) (Negative) POC Ur Test Urine Opiates Screen (Neg) Ur Methadone, Qual (Neg) Urine Barbiturates (Neg) Phenytoin (10-20) mcg/ml Ur Phencyclidine (PCP) (Neg) U Amphetamin/Meth Scrn (Neg) MDMA (Ecstasy) Screen (Neg) U Benzodiazepines Scrn (Neg) Ur Cocaine Metabolite (Neg) U Marijuana (THC) Screen (Neg) Ethyl Alcohol mg/dL < 3.0 (0-3) mg/dl Lyme Disease IgG Ab (Negative) Lyme Disease IgM Ab (Negative) 01/23/20 01/23/20 01/23/20 Range/Units 11:14 11:14 11:15 WBC (4.8-10.8) K/uL RBC (4.2-5.4) M/uL Hgb (12.0-16.0) g/dL Hct (37-47) % MCV (80-100) fL MCH (25-34) pg MCHC (32-36) g/dL RDW Std Deviation (36.4-46.3) fL RDW Coeff of Severiano (11.5-14.5) % Plt Count (130-400) K/uL MPV (7.4-10.4) fL Immature Gran % (Auto) % Neut % (Auto) % Lymph % (Auto) % Rhea % (Auto) % Eos % (Auto) % Baso % (Auto) % Neut # (Auto) (1.4-6.5) K/uL Lymph # (Auto) (1.2-3.4) K/uL Rhea # (Auto) (0.11-0.59) K/uL Eos # (Auto) (0-0.5) K/uL Baso # (Auto) (0-0.2) K/uL Immature Gran # (Auto) (0.00-0.02) K/uL ESR 41 H (0-21) mm/hr Sodium (136-145) mmol/L Potassium (3.5-5.1) mmol/L Chloride (98-107) mmol/L Carbon Dioxide (21-32) mmol/L Anion Gap (3-11) BUN (7-18) mg/dl Creatinine (0.6-1.2) mg/dl Est Cr Clr Drug Dosing Est GFR ( Amer) Est GFR (Non-Af Amer) BUN/Creatinine Ratio (10-20) Glucose (70-99) mg/dl Calcium (8.5-10.1) mg/dl Total Bilirubin (0.2-1) mg/dl AST (15-37) U/L ALT (12-78) U/L Alkaline Phosphatase (45-117) U/L Total Protein (6.4-8.2) gm/dl Albumin (3.4-5.0) gm/dl Globulin (2.5-4.0) gm/dl Albumin/Globulin Ratio (0.9-2) TSH (0.300-4.500) uIu/ml Urine Color Urine Appearance (Clear) Urine pH (4.5-7.5) Ur Specific [place] (1.000-1.030) Urine Protein (Negative) Urine Glucose (UA) (Negative) Urine Ketones (Negative) Urine Blood (Negative) Urine Nitrite (Negative) Urine Bilirubin (Negative) Urine Urobilinogen (Negative) Ur Leukocyte Esterase (Negative) Urine WBC (Auto) (0-5) /hpf Urine RBC (Auto) (0-4) /hpf U Hyaline Cast (Auto) (0-5) /lpf U Epithel Cells (Auto) (0-5) /lpf Urine Bacteria (Auto) (Negative) POC Ur Test Urine Opiates Screen (Neg) Ur Methadone, Qual (Neg) Urine Barbiturates (Neg) Phenytoin 7.7 L (10-20) mcg/ml Ur Phencyclidine (PCP) (Neg) U Amphetamin/Meth Scrn (Neg) MDMA (Ecstasy) Screen (Neg) U Benzodiazepines Scrn (Neg) Ur Cocaine Metabolite (Neg) U Marijuana (THC) Screen (Neg) Ethyl Alcohol mg/dL (0-3) mg/dl Lyme Disease IgG Ab Negative (Negative) Lyme Disease IgM Ab Negative (Negative) 01/23/20 01/23/20 01/23/20 Range/Units 12:14 12:14 12:14 WBC (4.8-10.8) K/uL RBC (4.2-5.4) M/uL Hgb (12.0-16.0) g/dL Hct (37-47) % MCV (80-100) fL MCH (25-34) pg MCHC (32-36) g/dL RDW Std Deviation (36.4-46.3) fL RDW Coeff of Severiano (11.5-14.5) % Plt Count (130-400) K/uL MPV (7.4-10.4) fL Immature Gran % (Auto) % Neut % (Auto) % Lymph % (Auto) % Rhea % (Auto) % Eos % (Auto) % Baso % (Auto) % Neut # (Auto) (1.4-6.5) K/uL Lymph # (Auto) (1.2-3.4) K/uL Rhea # (Auto) (0.11-0.59) K/uL Eos # (Auto) (0-0.5) K/uL Baso # (Auto) (0-0.2) K/uL Immature Gran # (Auto) (0.00-0.02) K/uL ESR (0-21) mm/hr Sodium (136-145) mmol/L Potassium (3.5-5.1) mmol/L Chloride (98-107) mmol/L Carbon Dioxide (21-32) mmol/L Anion Gap (3-11) BUN (7-18) mg/dl Creatinine (0.6-1.2) mg/dl Est Cr Clr Drug Dosing Est GFR ( Amer) Est GFR (Non-Af Amer) BUN/Creatinine Ratio (10-20) Glucose (70-99) mg/dl Calcium (8.5-10.1) mg/dl Total Bilirubin (0.2-1) mg/dl AST (15-37) U/L ALT (12-78) U/L Alkaline Phosphatase (45-117) U/L Total Protein (6.4-8.2) gm/dl Albumin (3.4-5.0) gm/dl Globulin (2.5-4.0) gm/dl Albumin/Globulin Ratio (0.9-2) TSH (0.300-4.500) uIu/ml Urine Color Yellow Urine Appearance Clear (Clear) Urine pH >= 9.0 H (4.5-7.5) Ur Specific [place] 1.010 (1.000-1.030) Urine Protein Negative (Negative) Urine Glucose (UA) Negative (Negative) Urine Ketones Negative (Negative) Urine Blood 2+ H (Negative) Urine Nitrite Negative (Negative) Urine Bilirubin Negative (Negative) Urine Urobilinogen Negative (Negative) Ur Leukocyte Esterase Negative (Negative) Urine WBC (Auto) 0 (0-5) /hpf Urine RBC (Auto) 5-10 H (0-4) /hpf U Hyaline Cast (Auto) 0 (0-5) /lpf U Epithel Cells (Auto) 10-20 H (0-5) /lpf Urine Bacteria (Auto) Negative (Negative) POC Ur Test Cancelled Urine Opiates Screen Neg (Neg) Ur Methadone, Qual Neg (Neg) Urine Barbiturates Neg (Neg) Phenytoin (10-20) mcg/ml Ur Phencyclidine (PCP) Neg (Neg) U Amphetamin/Meth Scrn Neg (Neg) MDMA (Ecstasy) Screen Neg (Neg) U Benzodiazepines Scrn Neg (Neg) Ur Cocaine Metabolite Neg (Neg) U Marijuana (THC) Screen Neg (Neg) Ethyl Alcohol mg/dL (0-3) mg/dl Lyme Disease IgG Ab (Negative) Lyme Disease IgM Ab (Negative) Imaging Data Attestation: I personally reviewed and interpreted this imaging study as follows: Radiologist's Impression: CT SCAN OF THE BRAIN WITHOUT IV CONTRAST CLINICAL HISTORY: Decreased responsiveness. COMPARISON STUDY: No priors. TECHNIQUE: Unenhanced axial CT scan of the brain is performed from the vertex to the skull base. A dose lowering technique was utilized adhering to the principles of ALARA. CT DOSE: 614.27 mGy.cm FINDINGS: Brain parenchyma: The brain parenchyma is normal in appearance. There is no hemorrhage, mass effect, or evidence of acute territorial ischemia by CT criteria. Pena-white matter differentiation is preserved. No extra-axial fluid collection is seen. Ventricles, sulci, cisterns: Normal in configuration. Intracranial vasculature: The visualized intracranial vasculature at the skull base is normal in appearance. Calvarium: Unremarkable. Sinuses and mastoids: The visualized paranasal sinuses are clear. The mastoid air cells are well pneumatized. Orbits: The bony orbits are grossly intact. IMPRESSION: There is no hemorrhage, mass effect, or evidence of acute territorial ischemia by CT criteria. ECG Data Attestation: I personally reviewed and interpreted this ECG as follows: Indication: + altered mental status Rate (beats per minute): 103 Rhythm: + sinus tachycardia ECG Intervals/blocks: + Normal QRS ECG ST segments: + Normal ST segments Change: no significant change Blood Pressure Blood Pressure Findings: Normal blood pressure Blood Pressure Disposition: further management by hospitalist NINFA Biggs Continuous cardiopulmonary supervisor: Order was placed for continuous cardiopulmonary supervisor. Patient was placed on the cardiopulmonary supervisor. Patient was noted to be in normal sinus rhythm at an initial rate of 103 bpm. The patient is a 34-year-old female who presents today for evaluation of an episode of unresponsiveness. On initial exam, patient responds at times. She does not speak but is able to follow commands. Labs are unremarkable, no leukocytosis or concerning anemia. No significant electrolyte abnormalities. Dilantin level is not elevated. CT of the brain is unremarkable. Patient did begin responding while in the emergency department, but father notes she is not acting appropriately. I do feel the patient would benefit from hospitalization with neurology consultation. The patient and her father were agreeable to this. The [facility] hospitalist service was consulted and agreed to evaluate the patient. Impression & Plan Decreased responsiveness Discharge Plan Visit Data Chief Complaint: Illness Stated Complaint: UNRESPONSIVE ED Provider: Ishmael Javier ED Midlevel Provider: Britta Maria Discharge Problem: Decreased responsiveness Patient Disposition: Admitted As Inpatient Discharge Instructions Interventions: ED Discharge Assessment Last Done: 01/23/20 15:39
[2020-01-23 17:27] LABS: Lyme Ab IgG w/WB Rflx Negative (Negative); Lyme Ab IgM w/WB Rflx Negative (Negative)
[2020-01-23 18:23] LABS: Thyroid Stimulating Hormone 3.25 uIu/ml (0.300-4.500)
[2020-01-23] MEDS: FLUDROCORTISONE ACETATE 0.1 MG TAB PO SCH (20:35)
[2020-01-23] MEDS: LACOSAMIDE 50 MG TABLET PO SCH (20:38)
[2020-01-23] MEDS: VENLAFAXINE HCL XR 150 MG CAPXR PO SCH (20:39)
[2020-01-23] MEDS ORDERED: NON-FORMULARY MEDICATION (Riboflavin (Vitamin B2) [Vitamin B-2] 100 MG) PO SCH (21:00)
[2020-01-23] MEDS ORDERED: AMITRIPTYLINE HCL 25 MG TAB PO SCH (21:00)
[2020-01-23] MEDS ORDERED: IOVERSOL 100ml IV ONE (22:15)
[2020-01-24] MEDS: ORAL CONTRACEPTIVE~ORDER AWAITING ACTION SCH ×3 (00:08→17:26)
--- NOTE | 2020-01-24 07:54 | CT Scan Report ---
CT SCAN OF THE ABDOMEN AND PELVIS WITH IV CONTRAST CLINICAL HISTORY: Right lower quadrant abdominal pain. COMPARISON STUDY: Abdominal CT dated 05/29/2017. TECHNIQUE: Following the IV administration of 93 cc of Optiray 320, CT scan of the abdomen and pelvi s is performed from the lung bases to the proximal femora. Images are reviewed in the axial, sagittal , and coronal planes. IV contrast was administered without complication. A dose lowering technique wa s utilized adhering to the principles of ALARA. CT DOSE: 688.27 mGy.cm FINDINGS: Lung bases: The heart is normal in size and without pericardial effusion. The lung bases are clear no ting bibasilar atelectasis. Liver: The contrast-enhanced liver is normal in size, contour, and attenuation. There is no intrahepa tic biliary ductal dilatation. Mild pneumobilia suggests previous sphincterotomy. The hepatic veins a nd portal veins are patent. Gallbladder: Surgically absent noting clips in the gallbladder fossa. Spleen: Normal in size and attenuation. Pancreas: Unremarkable. Adrenal glands: Unremarkable. Kidneys: The contrast enhanced kidneys are normal in size and without hydronephrosis. The kidneys enh ance symmetrically. Abdominal vasculature: The abdominal aorta is normal in course and caliber. Bowel: There is no bowel obstruction. Mild to moderate fecal retention is noted in the colon. The kee endix is well-visualized and normal. Peritoneum: There is no intraperitoneal free air or abdominal ascites. Lymphadenopathy: None. Pelvic viscera: The bladder, uterus, and adnexa are normal as visualized noting bilateral ovarian fol licles. Skeletal structures: Mild regular thickening and sclerotic change throughout the pelvis which is grea test around the sacroiliac joints is similar to previous. No destructive bony lesion is seen. IMPRESSION: There are no acute infectious or inflammatory findings in the abdomen or pelvis. ACT 112: Negative or not required by law. Electronically signed by: Inderjit Garcia M.D. 01/24/2020 7:52 AM
[2020-01-24] MEDS: CHECK SCOPOLAMINE PATCH PLACEMENT SCH ×2 (08:21→17:25)
[2020-01-24] MEDS: PHENYTOIN SODIUM ER 100 MG CAP PO SCH (08:22)
[2020-01-24] MEDS: LACOSAMIDE 50 MG TABLET PO SCH (08:22)
[2020-01-24] MEDS: VENLAFAXINE HCL XR 150 MG CAPXR PO SCH (08:22)
[2020-01-24] MEDS ORDERED: FOLIC ACID 1 MG TAB PO SCH (09:00)
[2020-01-24] MEDS ORDERED: MAGNESIUM OXIDE 400 MG TAB PO SCH (09:00)
[2020-01-24] MEDS: IBUPROFEN 600 MG TAB PO PRN (09:00)
[2020-01-24] MEDS ORDERED: ARIPiprazole 10 MG TAB PO SCH (09:00)
--- NOTE | 2020-01-24 10:19 | Neurology Consultation ---
Date of Consultation January 24, 2020 Assessment & Plan (1) Epilepsy: (2) Seizure-like activity: (3) Altered mental state: (4) Bipolar 1 disorder: (5) Fatigue: (6) MONIQUE (generalized anxiety disorder): (7) Depression: (8) Headache: patient has a history of epilepsy as a child with breakthrough seizures as adults having intermittent control of the seizures over time. She was doing well this summer on Vimpat alone but then had "breakthrough seizures" More recently. I have significant concerns about medication compliance as well as dosing that we expect the patient to be on verses what she actually is taking. I am not certain that her recent events represent seizure activity anyway. part of my difficulties with this patient is the fact that EEGs tend to be normal and we have not captured any potentially epileptogenic activity. Patient has multiple psychiatric conditions including depression, anxiety, and bipolar 1 disorder. She is on multiple medications but again I am not sure what she is actually taking compared to what she should be taking. Her mood seems reasonable currently. The patient has fatigue and possible hair loss with an elevated TSH. Hypothyroidism is likely present. She has a history of headaches but not specifically migraines. Recommendations: 1. keep Vimpat 200 milligrams twice daily and check a trough level next week. 2. I am not certain this patient needs Dilantin at all and she had side effects to this in the past. 3. Consider evaluation and treatment of probable hypothyroidism. 4. Consider MRI of the brain with without contrast. 5. Could consider EEG but the odds of capturing abnormalities are quite low she is not having a spell at that time. I am quite interested in her being sent to an EMU at a medical center such as [facility] or [facility]. 6. concerns of low-grade encephalitis have been raised by clinicians recently. An LP can be considered. 7. Psychiatric consultation. I am not keen on her being on both amitriptyline and high dose venlafaxine. Overall, I spent a total of 110 minutes with this case including review of records, direct evaluation the patient at bedside, discussing the case with the patient at bedside and Dr. memo hawley including differential diagnosis and treatment options. History of Present Illness Reason for Consultation: patient is a 34-year-old, who I was asked to see at the request of Dr. Granados, for neurologic consultation regarding seizures, fatigue, and other issues. Requesting Physician: Dr. Granados Attending Physician: Bronson Hutchison, DO History of Present Illness I 1st saw this patient December 05, [address] PCP Dr. Arellano, for epilepsy. The patient started getting seizures around age 1 and there were intermittent throughout childhood. She had generalized tonic-clonic seizures and possibly atonic seizures. History was mostly provided by her father who was present. She had been on gabapentin and other medications (possibly carbamazepine and Depakote) but they were not entirely sure which medicines she were on. Apparently, the patient was taken off anticonvulsants around age 8 and had no apparent seizures for about 15 years up until age 24. the patient got at age 19 and got at age 24, 5 years later. In her late teens she was diagnosed with depression, generalized anxiety disorder and bipolar type 1. She was put on medications and believe she started taking venlafaxine at that time. At age 24 she had a severe generalized tonic-clonic seizure like event requiring hospitalization. She was given Dilantin but this gave her significant side effects. Gabapentin gave her some confusion. Once again she was taken off medication in had no seizures, apparently, until May of this year. Her father witnessed this seizure. She was sitting and became somewhat in coherent over a few seconds. Then she had whole body tensing and choking sounds lasting 30-60 seconds. This was followed by being limp and unresponsive for a while. She had no tongue biting or incontinence of urine. When she woke, she was in the emergency room and was "sore" all over. She was put on Vimpat and Keppra and did well until June of 2019 when the Keppra was stopped (not weaned). She had a 2nd episode of tonic-clonic seizure, was put back on the Keppra and then this was slowly weaned off over time. Currently she is only on Vimpat 100 milligrams 3 times a day. Her mood had been stable over the summer, and our records have her on Effexor 150 milligrams twice daily, amitriptyline 75 milligrams a day, and Abilify 20 milligrams a day. Apparently she had did well with seizures from October until 1 week ago when she had 3 seizures and ended up in [place] in the emergency room. Dilantin was given and she takes 100 milligrams once daily. She says her most recent EEG was in March of 2019 and she had an MRI of the brain in June of 2019. she has been at [facility] in [place] and [facility]. Her father called into the office on January 16 after she had 2 witnessed seizures. It was recommended that she increase Vimpat to 200 mg b.i.d., uncertain if that was able to be done. On January 17 she had several seizures and went to the ER at [facility]. She was given IV Dilantin loading dose and discharged on 100 mg t.i.d.. It does appear she is taking routinely Dilantin 200 mg in the morning and 100 mg at night. Her father cannot verify however will try to contact her mother. He reports she usually does well after being in the hospital and getting IV fluids, usually for a month or more. However she is starting to decline again for the past day, less alert, not drinking as much. The patient is lethargic today, did not have breakfast or anything to drink, very low blood pressure 99/66. She has a known history of orthostatic hypotension and despite this she is not compliant with drinking fluids or nutrition. She does not really seem to comprehend it. She has had hearing aids due to recurrent ear infections since grade school. She is chronically disabled, uncertain reason and unable to determine level of cognitive ability, father unable to describe. He does report she has a psychiatric history, no further details. Also that she has had similar symptoms over the past couple years however not as severe as this year, no further details. Today she is feeling dizzy and nauseous. She was giving a glass of water and a juice box, started to feel better. I was not able to contact her mother by cell phone for additional history. In discussing medications with the patient today, she believe she is not taking venlafaxine, only on Dilantin 100 milligrams once a day and taking Vimpat 200 milligrams in the morning and 100 milligrams at night. Obviously this does not match up with what we think she has posed to be taking. She has been having issues with fatigue and dizziness and it is uncertain if she is having breakthrough seizures. Patient herself does not have any idea what she happens to her during seizures. She has been told that she could have anything from twitching her right thumb to having a "gran mal" event with rare incontinence. She has periods of memory loss before during and after the events. The patient has a history of headaches occurring about 3 times a week. they occur any time but mostly in the afternoon and can be a sharp occipital pain. They last anywhere from 1-5 hours and she typically does not take any medication for them. Because of an unresponsive episode January 22 with severe fatigue the patient was brought to the emergency room. She arrived at 1013 with a temperature of 37.2, pulse of 116, respiratory 20, blood pressure 114/75, and O2 saturation 97 percent. Neurologic examination was remarkable for the patient being somewhat responsive but very of tongue did. There were no focal findings. CBC was unremarkable. Chem profile was unremarkable except for an alk-phos of 175. TSH was elevated at 4.8. A phenytoin level was 7.7. A lacosamide level was not obtained. Allergies Allergy/AdvReac Type Severity Reaction Status Date / Time gluten Allergy Mild VOMITING Verified 01/23/20 13:00 gabapentin AdvReac Unknown confusion Verified 01/23/20 13:00 prednisone AdvReac Unknown flushing Verified 01/23/20 13:00 and dizziness promethazine AdvReac Unknown CAUSED Verified 01/23/20 13:00 SEIZURE Home Medications Home Medications Medication Instructions Recorded Confirmed Type albuterol sulfate 90 mcg/actuation 2 puffs INH Q4H PRN gm 12/04/19 01/23/20 History aerosol inhaler amitriptyline 75 mg tablet 75 mg PO HS 12/04/19 01/23/20 History aripiprazole 20 mg tablet 20 mg PO DAILY 12/04/19 01/23/20 History fludrocortisone 0.1 mg tablet 0.1 mg PO BID tab 12/04/19 01/23/20 History folic acid 1 mg tablet 1 mg PO DAILY 12/04/19 01/23/20 History levonorgestrel 0.15 mg-ethinyl 1 tab PO DAILY 12/04/19 01/23/20 History estradiol 0.03 mg tablet meloxicam 15 mg tablet 15 mg PO DAILY 12/04/19 01/23/20 History ondansetron 8 mg disintegrating 8 mg PO Q8H PRN 12/04/19 01/23/20 History tablet scopolamine base 1 mg over 3 days 1 patch TD Q3D PRN 12/04/19 01/23/20 History transdermal patch tizanidine 4 mg capsule 4 mg PO Q8H PRN 12/04/19 01/23/20 History venlafaxine 150 mg 150 mg PO BID 12/05/19 01/23/20 History capsule,extended release 24 hr budesonide-formoterol [Symbicort] 2 puff INHALATION BID PRN 01/16/20 01/23/20 History lacosamide 200 mg tablet 200 mg PO BID 01/16/20 01/23/20 History magnesium 250 mg PO DAILY 01/16/20 01/23/20 History phenytoin sodium extended 100 mg PO TID #30 cap 01/16/20 01/23/20 Rx [Dilantin Extended] riboflavin (vitamin B2) [Vitamin 100 mg PO BID 01/16/20 01/23/20 History B-2] rizatriptan 5 mg PO DIRECTED PRN 01/16/20 01/23/20 History Patient History Medical History Estevez's esophagus Bipolar 1 disorder Epilepsy GERD (gastroesophageal reflux disease) Migraine headache Other cervical disc displacement, high cervical region Restless leg syndrome Thyrotoxicosis NOS w/o crisis Surgical History H/O colonoscopy H/O esophagogastroduodenoscopy H/O toe surgery S/P cholecystectomy S/P ear surgery S/P tonsillectomy and adenoidectomy Family History Grandmother (Maternal) Heart disease Father Diabetes Heart disease Brother Migraine headache Grandmother (Paternal) Heart disease Social History Smoking Status: Former smoker Age Quit Using Tobacco: 28; Cigarettes Per Day: one pack per day; Second Hand Exposure: No; Do You Dip or Chew Tobacco: No; Tobacco Cessation Education Requested by Patient: No Hx Alcohol Use: No Hx Substance Use: No Preferred Language: Italian 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 Beliefs That Will Affect Care: None Current Living Situation: Family current occupational status: disabled Other Information That Helps Us Care for You: No other: also security disability for the last 2 years because of multiple medical Feels Safe at Home: Yes Safety Concerns: Feels Safe At This Time Review of Systems Constitutional: + fatigue; no fever and no weakness Eyes: no diplopia, no eye pain and no worsening vision Ear, Nose, Mouth, Throat: + dizziness; no ear pain, no tinnitus, no hearing loss, no hoarseness and no dysphagia Respiratory: no cough and no dyspnea Cardiovascular: no chest pain, no palpitations and no lightheadedness Gastrointestinal: + abdominal pain; no nausea and no vomiting Genitourinary: no dysuria, no urinary frequency and no urinary incontinence Musculoskeletal: no back pain, no neck pain, no radicular pain, no joint pain and no myalgia Integumentary: no rash and no lesions Neurologic: + confusion; no gait abnormality, no localized weakness, no generalized weakness, no tingling, no numbness, no tremor(s), no abnormal movements, no headache(s), no abnormal speech and no memory loss Psychiatric: + depression, + anxiety, + confusion and + hallucinations; no irritability and no difficulty concentrating Endocrine: + fatigue; no flushing Hematologic / Lymphatic: no easy bleeding and no easy bruising Allergy / Immunological: no urticaria and no problem reported Exam (Neuro) Physical Exam: The patient is left-handed. The patient is awake, alert, and attentive. Speech is normal without any aphasia or dysarthria. She can name objects, repeat phrases, and has normal spontaneous speech. Mentation and thought processes are reasonably intact, with orientation to person, place and time, and normal fund of knowledge. Attention and concentration are normal. Mood and affect are normal and appropriate. General appearance and grooming are normal. Short and long-term memory are intact. There are no indications of delirium or dementia by exam today. She looks as if she is losing some hair frontally. The discs are sharp with positive venous pulsations bilaterally. There are no exudates, hemorrhages, or blood vessel changes seen. Pupils are 4 mm bilaterally and reactive to light. Extraocular eye muscles are intact without nystagmus. Visual acuity and visual power seem normal grossly to confrontation. There are no deficits to sensation in the face in all 3 distributions of the fifth cranial nerve bilaterally. Corneal reflexes are positive bilaterally. Facial strength and symmetry was normal bilaterally. Hearing seems normal to whisper and finger rub bilaterally. Palate moves well without asymmetry. There is normal sternocleidomastoid and trapezius (shoulder shrug) strength bilaterally. Tongue is midline with good strength bilaterally. Neck has a full range of motion without discomfort. There are no cervical bruits bilaterally. There are no cranial or ocular bruits. Heart is without murmur. There is a regular rhythm and rate. Cervical, thoracic, and lumbar spine are nontender to palpation. Gait is narrow based, with good arm swing, turns, and stance. With outstretched arms there is no drift. There are no resting, postural, or action tremors. There is no ataxia with finger to nose testing. There is good facility in the hands. No other abnormal involuntary movements are noted. Motor strength is 5/5 diffusely in the arms bilaterally including deltoids, biceps, triceps, brachioradialis, wrist flexors and extensors, social media specialist, and intrinsic hand muscles. Motor strength is 5/5 diffusely in the legs bilaterally including hip flexors, quadriceps, hamstrings, gastrocnemius, tibialis anterior, tibialis posterior, and Peroneii muscles. Toe extensors are normal and there is good bulk in the extensor digitorum brevis muscles bilaterally. The limbs have good tone without rigidity or spasticity. There is no atrophy noted in the muscles. Muscle bulk is normal, there is no tenderness to palpation, no myotonia to percussion, and no fasciculations seen. Sensory examination is intact to touch and pin throughout all 4 limbs diffusely. Vibratory sense testing was mildly decreased in the feet bilaterally and position sense testing is normal. Reflexes are 2/4 in the biceps, triceps, brachioradialis, and quadriceps tendons bilaterally. the right Achilles tendon reflex was 2/4 and the left was absent. There is no clonus bilaterally. Toes are downgoing with plantar stimulation bilaterally. Peripheral pulses are present and of normal quality distally in all 4 limbs. The re is no peripheral edema noted in the limbs. Results & Data ([facility]) Vital Signs (Past 12 Hours) Vital Signs Temp Pulse Resp BP Pulse Ox 01/24/20 07:13 36.8 C 97 H 16 134/91 98 01/24/20 03:32 36.7 C 106 H 18 123/84 96 01/23/20 23:07 36.8 C 105 H 18 133/87 97 PG Care Time/CCT Total # of Minutes Spent Total Time Spent with Patient: Total time spent is greater than 50% in coor dination of care (as documented) at patient's floor/unit and/or counseling patient: Coding Level of Care Code 01484 Initial Inpt Care Lvl 3 Diagnoses Epilepsy G40.909 Seizure-like activity R56.9 Altered mental state R41.82 Bipolar 1 disorder F31.9 Fatigue R53.83 MONIQUE (generalized anxiety disorder) F41.1 Depression F32.9 Headache R51 Time Spent (min) 110 Comment Add [id number] the [id number]
[2020-01-24] MEDS: FLUDROCORTISONE ACETATE 0.1 MG TAB PO SCH (10:29)
[2020-01-24] MEDS ORDERED: lamoTRIgine 25 MG TAB PO SCH (11:30)
--- NOTE | 2020-01-24 12:16 | Psychiatric Consultation ---
Date of Consultation January 24, 2020 Impression / Recommendations Impression Dr. Tim Quinn was directly involved in review and discussion of the patient's case and participated in medical decision making regarding treatment recommendations. RECOMMENDATIONS: 01/23 - Psychiatric consultation requested by hospitalist team to evaluate patient for history of bipolar disorder, with concern for patient presenting to ED with AMS. - Case reviewed with hospitalist resident. Discussed anticipated discharge this afternoon, and primary team was provided with updates regarding scheduled aftercare appointments for psychiatric follow-up at [facility]. - JENNIFER Graves: 02/18/2020 @ 10:00 - LUIS XiaoW: willing to add patient to schedule if interested, but patient missed last two appointments. Pt will need to call to set up. - Pt denies SI/HI, and acute psychiatric concerns. No present criteria for inpatient psychiatric treatment. Pt admits that she would be open to considering future medication adjustments, but denies any significant concerns related to mood stability. Due to recent adjustments in seizure medications, would not advise adjustments of her more potent psychotropic medications due to concern for lowering seizure threshold. Need for this can be further assessed on an outpatient basis. From a psychiatric perspective, lamotrigine is a beneficial option for seizure prophylaxis as it will offer some added benefit for mood stability. - Pt does admit to episodes of anxiety, and is agreeable with utilization of a medication that could be used as needed for these concerns. We discussed use of hydroxyzine 10mg q4h prn anxiety, with ability to take up to 20mg if 10mg dose is ineffective. Risks, benefits, and potential side effects were discussed with patient who verbalized understanding and is agreeable with initiating this medication. - Please reach out to our service with any additional questions or updates. Will plan to fax a copy of this consultation to [facility] for coor dination of care. (1) Breakthrough seizure: (2) Bipolar 1 disorder: (3) MONIQUE (generalized anxiety disorder): Psych History Identifying Data 34-year-old female admitted medically on 01/23/2020 after presenting to the ED with altered mental status with presumed seizure-like activity. Pt has reportedly been having breakthrough seizures in the last week. Psychiatric consultation was requested by hospitalist team due to reported history of bipolar disorder, patient presenting with AMS, and need for outpatient psychiatric aftercare. Chief Complaint "Seizures. I did have any for a long time, and then they started again last week." History of Present Illness John Fulton is a 34-year-old female admitted medically on 01/23/2020 after presenting to the ED with AMS and concern for breakthrough seizures. Psychiatric consultation was requested to evaluate patient due to reported history of bipolar disorder, concern for AMS on presentation, and no present psychiatric aftercare. Pt was cooperative with interview and states she does not remember much about coming to the hospital. She states there is concern for breakthrough seizures and she is aware of recent medication adjustments per neurology service. We reviewed anticipated response to lamotrigine regarding it's use for mood stabilization in addition to seizure prophylaxis. Pt feels her mood has been "sometimes all over the place", but overall feels she is managing appropriately. Pt denies significant depressive symptoms and denies signs or symptoms of stevo. Pt denies SI or other safety concerns at this time. At present, she reports her biggest concern has been increased anxiety "when I leave the house or am around people I don't know." We reviewed considerations with medication adjustments, specifically as it relates to potential of some medications to lower the seizure threshold. Pt is agreeable with focusing on seizure medication adjustments before altering her antidepressant or antipsychotic medication. She is agreeable with an as needed medication to target intermittent anxiety. She was also agreeable with referral for outpatient psychiatric medication management. Pt denied other needs or concerns from our service at this time. Past Psychiatric History Current Psychiatric Diagnosis: reports diagnosis of bipolar disorder Outpatient Services: Pt has had past appointments with a therapist through [facility], but missed her last 2 scheduled appointments. We were able to reschedule psychiatric aftercare with her previous therapist, Caryn, and confirm an appointment to begin medication management with JENNIFER Graves. Previous Psych Admissions: Denied History of Previous Suicide Attempt: Yes Describe Attempts in the Past: reports overdosing on "a handful of ibuprofen" at age 12-13 Past Medication Trials: Pt does not recall Allergies Allergy/AdvReac Type Severity Reaction Status Date / Time gluten Allergy Mild VOMITING Verified 01/23/20 13:00 gabapentin AdvReac Unknown confusion Verified 01/23/20 13:00 prednisone AdvReac Unknown flushing Verified 01/23/20 13:00 and dizziness promethazine AdvReac Unknown CAUSED Verified 01/23/20 13:00 SEIZURE Home Medications Home Medications Medication Instructions Recorded Confirmed Type albuterol sulfate 90 mcg/actuation 2 puffs INH Q4H PRN gm 12/04/19 01/23/20 History aerosol inhaler amitriptyline 75 mg tablet 75 mg PO HS 12/04/19 01/23/20 History aripiprazole 20 mg tablet 20 mg PO DAILY 12/04/19 01/23/20 History fludrocortisone 0.1 mg tablet 0.1 mg PO BID tab 12/04/19 01/23/20 History folic acid 1 mg tablet 1 mg PO DAILY 12/04/19 01/23/20 History levonorgestrel 0.15 mg-ethinyl 1 tab PO DAILY 12/04/19 01/23/20 History estradiol 0.03 mg tablet meloxicam 15 mg tablet 15 mg PO DAILY 12/04/19 01/23/20 History ondansetron 8 mg disintegrating 8 mg PO Q8H PRN 12/04/19 01/23/20 History tablet scopolamine base 1 mg over 3 days 1 patch TD Q3D PRN 12/04/19 01/23/20 History transdermal patch tizanidine 4 mg capsule 4 mg PO Q8H PRN 12/04/19 01/23/20 History venlafaxine 150 mg 150 mg PO BID 12/05/19 01/23/20 History capsule,extended release 24 hr budesonide-formoterol [Symbicort] 2 puff INHALATION BID PRN 01/16/20 01/23/20 History lacosamide 200 mg tablet 200 mg PO BID 01/16/20 01/23/20 History magnesium 250 mg PO DAILY 01/16/20 01/23/20 History riboflavin (vitamin B2) [Vitamin 100 mg PO BID 01/16/20 01/23/20 History B-2] rizatriptan 5 mg PO DIRECTED PRN 01/16/20 01/23/20 History hydroxyzine HCl 10 mg PO Q4H 14 Days #84 tab 01/24/20 Rx lamotrigine [Lamictal] 25 mg PO BID 14 Days #28 tab 01/24/20 Rx Family History No known family history of mental health conditions. Substance Abuse History Denies significant alcohol or tobacco use. Denies use of illicit substances. Personal History Living Arrangements: Home Highest Grade Completed: High School Graduate Employment Status: Disabled (due to seizure disorder) Marital Status: Single History of Legal Problems: Denied Psychological Trauma History Comment: Denied Patient History Medical History Estevez's esophagus Bipolar 1 disorder Epilepsy GERD (gastroesophageal reflux disease) Migraine headache Other cervical disc displacement, high cervical region Restless leg syndrome Thyrotoxicosis NOS w/o crisis Surgical History H/O colonoscopy H/O esophagogastroduodenoscopy H/O toe surgery S/P cholecystectomy S/P ear surgery S/P tonsillectomy and adenoidectomy Family History Grandmother (Maternal) Heart disease Father Diabetes Heart disease Brother Migraine headache Grandmother (Paternal) Heart disease Social History Smoking Status: Former smoker Age Quit Using Tobacco: 28; Cigarettes Per Day: one pack per day; Second Hand Exposure: No; Do You Dip or Chew Tobacco: No; Tobacco Cessation Education Requested by Patient: No Hx Alcohol Use: No Hx Substance Use: No Preferred Language: Finnish Pipe Roller Required: No Current Living Situation: Family current occupational status: disabled Other Information That Helps Us Care for You: No other: also security disability for the last 2 years because of multiple medical Feels Safe at Home: Yes Safety Concerns: Feels Safe At This Time Physical Exam Psychiatric: Orientation: alert, oriented x 3 and cooperative Apperance: appropriately dressed, appropriately groomed and appeared stated age Eye Contact: good eye contact Motor Behavior: no abnormal motor movements (observed while laying in bed) Speech: normal rate/rhythm/volume of speech Affect: + anxious affect (mildly ) and mood congruent with affect Mood: + anxious mood Mood: "better" and "all over the place sometimes" Thought Process: goal directed thought process, clear/coherent thought process and + concrete thought process Thought Content: reality based without delusions; not paranoid, no hopelessness and no worthlessness Suicidal Thoughts: denies suicidal thoughts, denies suicidal plan and denies suicidal intent Homicidal Thoughts: denies homicidal thoughts Hallucinations: is not presently reporting auditory of visual hallucinations Cognition: attention grossly intact and language grossly intact; + recent memory not intact (admits to difficulty recalling events prior to admission) Insight: + fair insight Judgement: + fair judgement Vital Signs (Past 24 Hours): Last Vital Signs Temp 36.9 C 01/24/20 11:04 Pulse 94 H 01/24/20 11:04 Resp 16 01/24/20 11:04 BP 128/87 01/24/20 11:04 Pulse Ox 96 01/24/20 11:04 Review of Systems Constitutional: admits to feeling "a bit fuzzy" Cardiovascular: denied Respiratory: denied Gastrointestinal: denied Neurological: denied Psychiatric: denies symptoms other than stated above Total of at least 10 systems reviewed, pertinent positives as above and in HPI. Results & Data (PSY) Medications Administered Amitriptyline HCl (Amitriptyline Hcl 25 Mg Tab) 75 mg PO HS AMELIA Stop: 02/22/20 20:59 Last Admin: 01/23/20 20:38 Dose: 75 mg Documented by: [id number] Aripiprazole (Aripiprazole 10 Mg Tab) 20 mg PO DAILY AMELIA Stop: 02/23/20 08:59 Last Admin: 01/24/20 08:21 Dose: 20 mg Documented by: [id number] Fludrocortisone Acetate (Fludrocortisone Acetate 0.1 Mg Tab) 0.1 mg PO BID AMELIA Stop: 02/22/20 20:59 Last Admin: 01/24/20 10:29 Dose: 0.1 mg Documented by: [id number] Admin: 01/23/20 20:35 Dose: 0.1 mg Documented by: [id number] Folic Acid (Folic Acid 1 Mg Tab) 1 mg PO DAILY AMELIA Stop: 02/23/20 08:59 Last Admin: 01/24/20 08:22 Dose: 1 mg Documented by: [id number] Ibuprofen (Ibuprofen 600 Mg Tab) 600 mg PO Q8H PRN PRN Reason: pain Stop: 02/22/20 16:39 Last Admin: 01/24/20 09:00 Dose: 600 mg Documented by: [id number] Admin: 01/23/20 17:03 Dose: 600 mg Documented by: [id number] Lacosamide (Lacosamide 50 Mg Tablet) 200 mg PO BID AMELIA Stop: 02/22/20 20:59 Last Admin: 01/24/20 08:22 Dose: 200 mg Documented by: [id number] Admin: 01/23/20 20:38 Dose: 200 mg Documented by: [id number] Magnesium Oxide (Magnesium Oxide 400 Mg Tab) 400 mg PO DAILY [facility] Stop: 02/23/20 08:59 Last Admin: 01/24/20 08:22 Dose: 400 mg Documented by: [id number] Miscellaneous (Oral Contraceptive~Order Awaiting Action) 1 ea N/A QS [facility] Stop: 02/22/20 15:59 Last Admin: 01/24/20 08:21 Dose: Not Given Documented by: [id number] Admin: 01/24/20 00:08 Dose: Not Given Documented by: [id number] Admin: 01/23/20 16:25 Dose: Not Given Documented by: [id number] Miscellaneous (Check Scopolamine Patch Placement) 1 ea N/A QS [facility] Stop: 02/23/20 07:59 Last Admin: 01/24/20 08:21 Dose: Not Given Documented by: [id number] Polyethylene Glycol (Polyethylene (Miralax) 17 Gm Pack) 17 gm PO DAILY PRN PRN Reason: Constipation Stop: 02/22/20 13:33 Last Admin: 01/24/20 10:29 Dose: 17 gm Documented by: [id number] Venlafaxine HCl (Venlafaxine Hcl Xr 150 Mg Capxr) 150 mg PO BID [facility] Stop: 02/22/20 20:59 Last Admin: 01/24/20 08:22 Dose: 150 mg Documented by: [id number] Admin: 01/23/20 20:39 Dose: 150 mg Documented by: [id number] Coding Level of Care Code 55979 [facility] Intl Hosp Care Lvl 2 Diagnoses Breakthrough seizure G40.919 Bipolar 1 disorder F31.9 MONIQUE (generalized anxiety disorder) F41.1
[2020-01-24] MEDS ORDERED: GADOBUTROL 65ML VIAL IV ONE (13:18)
--- NOTE | 2020-01-24 13:55 | Magnetic Resonance Report ---
MR brain seizure wo/w con HISTORY: 34 years-old Female ?seizures acute seizure like activity with depression and anxiety COMPARISON: PET CT 01/23/2020 TECHNIQUE: Multiplanar multisequence MRI of the brain was obtained both with and without the use of 8 .0 mL Gadavist FINDINGS: Wash Worker localizer images demonstrate no gross extracranial abnormality. There is no restricted diffusio n to suggest acute or subacute infarct. Midline structures including the corpus callosum, brainstem, optic chiasm, pituitary and pineal glands. The imaged cervical spine is unremarkable. There is no acute intracranial hemorrhage, midline shift, abnormal extra-axial collection, hydrocepha bonnie or intracranial mass. No significant T2/FLAIR signal abnormalities of the brain parenchyma. Mesia l temporal lobes are symmetric and within normal limits without evidence of mesial temporal sclerosis . No acute seizure focus, cortical dysplasia or cartwright matter heterotopia identified. There is no abnor mal intra-axial or extra-axial enhancement. Major vascular flow voids appear patent. Cerebral venous sinuses are unremarkable. The orbits, skull and soft tissues are within normal limits. Mastoid air cells and paranasal sinuses are generally darrick r. IMPRESSION: No acute intracranial abnormality or abnormal enhancement. ACT 112: Negative or not required by law. The above report was generated using voice recognition software. It may contain grammatical, syntax o r spelling errors. Electronically signed by: Derek Ocasio M.D. 01/24/2020 1:53 PM
--- NOTE | 2020-01-24 15:47 | Discharge Summary ---
Date of Service January 24, 2020 Admission HPI Per Admitting Provider This is a pleasant 34 yo female who is brought in by her father. She has history of seizures and Bipolar disease. She was recently seen by her Neurologist today. However she was lethargic during the appointment and as she was walking out, she couldn't move her legs and needed to sit. Her father brought her in and she appeared catatonic as per ER provide. After iVF she improved and is now conversant and following commands and moving all extremities. Admission Exam Per Admitting Provider Constitutional: WD/WN, vitals as above well developed Eyes: PERRL, conjunctivae normal, anicteric sclerae ENMT: external ear and nose normal, oropharynx normal Neck: trachea midline, no thyromegaly Respiratory: normal respiratory effort, lungs clear to auscultation Cardiovascular: RRR, no murmur, no edema Gastrointestinal (Abdomen): normal bowel sounds, soft, nontender, no hepatosplenomegaly Musculoskeletal: no cyanosis or clubbing, extremities motor strength 5/5 Skin: no rashes, warm and dry Neurologic: PERRL, EOMI, accommodation nl, no face palsy, no dysarthria Psychiatric: A+Ox3, euthymic affect Principal Diagnosis Seizure like activity Discharge Exam Constitutional well developed, well nourished and cooperative; no acute distress Eyes PERRL, conjunctivae normal, anicteric sclerae Neck trachea midline, no thyromegaly Respiratory normal respiratory effort, lungs clear to auscultation Cardiovascular RRR, no murmur, no edema Gastrointestinal (Abdomen) Inspection/Auscultation: abdomen normal to inspection and normal bowel sounds; abdomen not distended Percussion/Palpation: + abdomen tender (TTP in the RUQ) and abdomen soft Musculoskeletal no cyanosis or clubbing, extremities motor strength 5/5 Neurologic PERRL, EOMI, accommodation nl, no face palsy, no dysarthria awake Psychiatric A+Ox3, euthymic affect Discharge Data Allergies Allergy/AdvReac Type Severity Reaction Status Date / Time gluten Allergy Mild VOMITING Verified 01/23/20 13:00 gabapentin AdvReac Unknown confusion Verified 01/23/20 13:00 prednisone AdvReac Unknown flushing Verified 01/23/20 13:00 and dizziness promethazine AdvReac Unknown CAUSED Verified 01/23/20 13:00 SEIZURE Consultations 01/23/20 13:34 Consult Neurology Routine 01/23/20 16:41 Consult Health Information Management Routine 01/24/20 10:34 Consult Psychiatry Routine 01/24/20 15:34 Consult EFREN fence installer foreman Routine Ordered Studies 01/23/20 10:47 CT head/brain wo con Stat 01/23/20 21:09 CT abd pelvis IV con only Urgent 01/24/20 11:18 MR brain seizure wo/w con Urgent Hospital Course (1) Epilepsy: Patient is a 34 year old female with PMHx Epilepsy, Bipolar 1, Orthostatic hypotension, Headaches who presented to the ED secondary to concerns of unresponsiveness thought to be due to a seizure. Epilepsy/Seizure Disorder -Patient was given extra lode of Dilantin in ED -Neurology was consulted -Recommended discontinuing Dilantin -Recommended increasing Vimpat to 200mg BID -Recommended adding Lamictal 25mg BID x2 weeks and increasing titration in the usual fashion. -Brain MRI negative for acute pathology -Patient to have follow up with Neurology in 1 week. Bipolar 1 Disorder -Patient taking Elavil 75mg Hs, Abilify 20mg QD, Venlafaxine 150mg BID -Psychiatry consulted -No changes in patients medication at this time -Recommended adding on Hydroxyzine 10mg q4h PRN anxiety -Patient has follow up with Psychiatry scheduled on 02/18/2020 at [facility] Headaches -Continued patients home Maxalt PRN Orthostatic Hypotension -Continued patients home Fludrocortisone Nausea -Zofran q8h -Scopolamine patch PRN - was not needed during inpatient stay ?Hypothyroidism -Patient had TSH of 4.87 on admission and repeat of 3.25 -Would recommend patient have a recheck of TSH and T4 in near future. - (2) Seizure disorder: (3) Bipolar 1 disorder: (4) Altered mental state: (5) Seizure-like activity: (6) Constipation: (7) Orthostatic hypotension: (8) Headache: Total Time Total Time Spent Total Time Spent (In Minutes): see attending attestation Discharge Plan Discharge Items Patient Disposition: Home - Self-Care Reason For Visit: POSSIBLE SEIZURES Discharge Diagnosis: Seizure Activity: Per Instructions section Non-emergency contact: Primary Care Provider and Psychiatrist Call non-emergency contact if: you have any medication questions and your symptoms worsen Follow-up/Referrals: Mirtha Arellano M.D. [Primary Care Provider] - 02/07/20 10:15 am (Please take discharge papers from hospital with you to this apt and be there 15 mins early) Diet: Gluten Free Addtl Attending Provider Instructions: Ms. Fulton, It was our pleasure caring for you at [facility] from 01/23/20 to 01/24/20 for your seizures. Please see below for a summary of your stay and for future instructions. Seizure Disorder -When you arrived in the ED, you were given an extra dose of Dilantin since there was concern for seizures. -You were also restarted on your home medications and evaluated by Neurology in the morning. -Neurology recommended the following changes in your medical management: -Discontinue the Dilantin -Increase Vimpat to 200mg twice a day -Start Lamictal 25mg by mouth twice a day -- this will be titrated upwards outpatient with Dr. Crowe -An MRI of your brain was also completed which showed no acute intracranial abnormality or abnormal enhancement. -Please follow up with Dr. Crowe in the following 1 week -Please follow up with your PCP in the following 1 week. Bipolar Disorder / Anxiety -You were seen and evaluated by Psychiatry while you were inpatient as well -As your seizure medications were being adjusted, they felt that adjustments to your psychiatric medications would be better handeld outpatient. -Please continue your Elavil, Abilify, and Venlafaxine as prescribed -Please follow up with your Psychiatrist at your next scheduled visit, at that time they may change your medications - JENNIFER Graves: 02/18/2020 @ 10:00 - Caryn Christine LCSW: willing to add patient to schedule if interested. Pt will need to call to set up. -You are also being prescribed Hydroxyzine 10mg every 4 hours as needed for anxi ety, may increase to 2 tablets if no response after 15 minutes. Concern for Hypothyroidism -You had a TSH of 4.87 with repeat of 3.25 while inpatient -We would recommend that you have this rechecked by your PCP in the near future in regards to any concerns of hypothyroidism. Please continue to take your home medications otherwise as prescribed. Pending Studies at Discharge: No Stand-Alone Forms: My [facility], Smoking Cessation Medications and DC Order Prescriptions: New lamotrigine [Lamictal] 25 mg Tablet 25 mg PO BID 14 Days Qty: 28 RF: 0 hydroxyzine HCl 10 mg tablet 10 mg PO Q4H 14 Days Qty: 84 RF: 0 Continued lacosamide 200 mg tablet 200 mg PO BID RF: 0 albuterol sulfate [ProAir HFA] 90 mcg/actuation HFA aerosol inhaler 2 puffs INH Q4H PRN (Reason: Shortness Of Breath Or Wheezing) RF: 0 amitriptyline 75 mg tablet 75 mg PO HS RF: 0 aripiprazole [Abilify] 20 mg tablet 20 mg PO DAILY RF: 0 fludrocortisone 0.1 mg tablet 0.1 mg PO BID RF: 0 folic acid 1 mg tablet 1 mg PO DAILY RF: 0 meloxicam [Mobic] 15 mg tablet 15 mg PO DAILY RF: 0 levonorgestrel-ethinyl estrad 0.15-0.03 mg tablet 1 tab PO DAILY RF: 0 ondansetron 8 mg tablet,disintegrating 8 mg PO Q8H PRN (Reason: Nausea) RF: 0 tizanidine [Zanaflex] 4 mg capsule 4 mg PO Q8H PRN (Reason: Muscle Spasm ) RF: 0 scopolamine base [Transderm-Scop] 1 mg over 3 days patch 3 day 1 patch TD Q3D PRN (Reason: Nausea/Vomiting) RF: 0 venlafaxine [Effexor XR] 150 mg capsule,extended release 24hr 150 mg PO BID RF: 0 riboflavin (vitamin B2) [Vitamin B-2] 100 mg Tablet 100 mg PO BID RF: 0 magnesium 250 mg Tablet 250 mg PO DAILY RF: 0 budesonide-formoterol [Symbicort] 160-4.5 mcg/actuation HFA aerosol inhaler 2 puff INHALATION BID PRN (Reason: Shortness Of Breath Or Wheezing) RF: 0 rizatriptan 5 mg tablet 5 mg PO DIRECTED PRN (Reason: Migraine Headache) RF: 0 Discontinued phenytoin sodium extended [Dilantin Extended] 100 mg capsule 100 mg PO TID Qty: 30 RF: 0 Discharge Orders: Discharge Order (Routine); Ordered 01/24/20 Ordered By: Price Steward Admission Data Admit Date/Time: 01/23/20 13:35 Attending Provider: Bronson Hutchison Admit Provider: Valdez Granados Primary Care Provider: Mirtha Arellano Other Providers: Hemant Crowe ; Tim Quinn I. Other Interventions: Discharge Summary Assessment (RN) Last Done: 01/24/20 15:46 PSY Interdisciplinary Discharge Planning Last Done: 01/24/20 12:40 Supervising Physician Co-Signing Physician Notes Patient seen and examined with PGY-2 Dr. Steward. Agree with hospital course and discharge plan as documented with the following update: In brief, John is a 34 year old female with history of seizure disorder, bipolar 1 disorder, orthostatic hypotension and migraines admitted through the ED due to an episode of unresponsiveness. On exam today, she is conversant and able to give a history of her current medications. She feels well, although does report some abdominal discomfort. VS, labs, and imaging reviewed. Nursing notes reviewed. Well appearing. Awake and alert. Heart with regular rate and rhythm. No murmur, rub or gallop. Lungs are clear to auscultation. No wheezes, ronchi or rales. Abdomen soft, mildly tender in the right upper quadrant. ORiented x 3. Grossly in tact. 1. seizure disorder. s/p dilantin load in the ED. Increase vimpat to 200mg BID, start lamictal. (25mg BID x 2 weeks, then 50mg BID x 2 weeks etc.) Lamictal may be helpful for her seizure issues, but also as a mood stabilizer. MRI brain unremarkable. Follow up with neurology in [address] case with Dr. Crowe. 2. Bipolar 1 disorder. continue with home meds, added hydoxyzine for anxiety. Keep follow up with outpatient psych in early february. 3. Abdominal pain. CT Abd/pelvis without acute process, but does have increased stool burden. likely related to stool burder/constipation. miralax. Dipso: discharge home today. I personally spent 35 minutes discharge planning for this patient. Resident Activity Tracking Resident Involvement: Resident Care Provided Care Provided: Adult Hospital Medicine
--- NOTE | 2020-01-24 18:55 | Electrocardiogram Report ---
Test Reason : Blood Pressure : / mmHG Vent. Rate : 103 BPM Atrial Rate : 103 BPM P-R Int : 148 ms QRS Dur : 100 ms QT Int : 358 ms P-R-T Axes : 020 069 039 degrees QTc Int : 468 ms Sinus tachycardia Otherwise normal ECG When compared with ECG of 16-JAN-2020 21:40, No significant change was found Confirmed by Arturo Cavazos ([id number]) on 01/24/2020 6:55:03 PM Referred By: REFERRED SELF Confirmed By:Tonio Cavazos
== END 2020-01-24 18:30 | disposition home or self-care (01) | DRG 101 ==
LOC: ED 09:59 → SUATTDRO 13:35 → 2W 13:35

== ENCOUNTER 2022-10-18 13:08 | Inpatient (IN) ==
[2022-10-18] MEDS ORDERED: LORazepam 2 MG/1 ML VIAL ONE (13:21)
[2022-10-18] MEDS ORDERED: SODIUM CHLORIDE 0.9% IV STA (13:31)
[2022-10-18] MEDS ORDERED: LEVETIRACETAM IV STA (13:31)
[2022-10-18] MEDS ORDERED: LORazepam 2 MG/1 ML VIAL IM STA (13:33)
[2022-10-18] MEDS ORDERED: SODIUM CHLORIDE 0.9% 1000ML 1,000 ML IV SCH (13:45)
[2022-10-18] MEDS ORDERED: LORazepam 2 MG/1 ML VIAL IV PRN (13:48)
[2022-10-18 13:58] LABS: iSTAT Creatinine 0.7 mg/dl (0.6-1.3); iSTAT Hemoglobin 13.9 g/dl (12.0-16.0); iSTAT Ionized Calcium 1.08 mmol/l (1.12-1.32); iSTAT Potassium 3.9 mmol/L (3.3-5.0)
[2022-10-18] MEDS ORDERED: OPTIRAY 320 500ml IV ONE (14:08)
[2022-10-18] MEDS ORDERED: SODIUM CHLORIDE 0.9% 1000ML 1,000 ML IV ONE (14:10)
[2022-10-18] MEDS ORDERED: PLASMA-LYTE A 1,000 ML IV ONE (14:20)
--- NOTE | 2022-10-18 14:20 | Emergency Department Note ---
Impression & Plan Epileptic seizure, Seizure disorder, Fever, Acidosis, lactic ED Provider Note NAME: HIREN CASTILLO AGE: 37 SEX: F : 1985 ARRIVES VIA: Walk-In INFORMANT: Patient, ED PROVIDER(S): Bowen Alford MD CHIEF COMPLAINT: Seizure MEDICAL DECISION MAKING: Patient was seen due to concern for acute seizure. The patient had been seizing the waiting room was brought back to 1 large resuscitation bays. Patient was immediately assessed by myself as well as nursing staff in order to obtain an IV access. The patient was given 2 of IM Ativan which did seem to abort the patient's seizures. I was able to place a right upper extremity ultrasound- guided IV. Patient was ordered Keppra and I did have assistance from pharmacy in order to have this given. Patient did have blood work obtained along with CT head and CT angiography of the head and neck. Blood work does show lactic acidosis likely consistent with the patient's seizures. The patient is normal white count H&H and platelet count. CT head and CT angiography of the head and neck are negative. The patient is in no further seizures is awake alert and following commands. I did speak the on-call hospital service Dr. Bruce and the patient was to be admitted to the medicine service. Of note the patient did have a temperature to 38 once the patient did have urinalysis, Bio[employer] and chest x-ray obtained and these were pending at the time of admission. Critical Care: I have personally spent 72 minutes of critical care time in direct management of this patient. This includes bedside care, interpretation of diagnostic studies, and testing, discussion with consultants, patient, and family members, and other require inpatient management activities. This 72 minutes is in excess of all separately billable procedures. Procedures: US guided Peripheral IV Line placed by Dr. Alford Indication: Difficult blood draw, additional access Site: Right AC Time Out Performed: Yes Skin Cleansed in Sterile Fashion: Yes Size (gauge): 18 IV Secured and Dressing Applied: Yes Patient Tolerated Procedure: well Prior /Outside records reviewed: I did review a neurology visit from September 21 that showed that the patient has known history of seizure disorder migraines with associated tremor but the patient was discharged on zonisamide Differential diagnosis: Epilepsy, infection, hypoglycemia, electrolyte abnormalities, cardiac sources, intracerebral event, trauma, toxicologic, neurologic, syncope, as well as other pathologies. Diagnostics, as interpreted by me: ECG: Sinus tachycardia, rate 116, normal intervals, normal axis, no ST elevations. Cardiac monitoring: An order was placed for continuous cardiac monitoring. The monitor shows a rate of 135 with tachycardic and regular rhythm. Patient was placed on pulse oximetry Medical decision rules: none Imaging studies: See below I informally reviewed the patient's chest x-ray which shows no obvious pneumonia. HPI: Patient presents due to concern for seizure. The patient reportedly was seizing in the waiting room was brought back emergently. After my initial assessment I did gather further history from the parents with whom the patient lives who are at the bedside. They state that the patient was seen at [facility] yesterday and did have work-up done at that time due to concern for breakthrough seizures. The patient reportedly had 9 seizures yesterday. The patient did have some blood work completed today but no reported CAT scan of the head. Patient had reported some worsening headache of late. No reported falls or trauma. The patient is recently transitioning through her primary neurologist Dr. Crowe from zonisamide secondary to kidney stones to Trileptal. Patient did have prior issues with being taken off medication years ago where she did have breakthrough seizures at that time as well. They did notice some seizures in the night and that she seemed to be okay on the way down but seem to be more unwell as they presented and then had a seizure in the waiting room. She has had decreased sleep and increased anxiety. No known sick contacts or recent travel. No cough or fever vomiting or diarrhea. No prior history of overdose and the patient reportedly is compliant with her medications as the parents do help administer these. PAST MEDICAL HISTORY: See Below PAST SURGICAL HISTORY: See Below SOCIAL HISTORY: See Below HOME MEDICATIONS: See Below ALLERGIES: See Below VITALS: See Below PHYSICAL EXAMINATION: GENERAL: Severe distress, ill in appearance, EYE EXAM: Normal conjunctiva. PERRL, no anisocoria and EOM's grossly intact w/o pain. Oropharynx: Edentulous. NECK: Supple, no nuchal rigidity, no adenopathy, non-tender. No signs of meningismus. FROM of the neck with good chin to chest and neck extension. No stridor. LUNGS: Clear to auscultation. Normal chest wall mechanics. HEART: Tachycardic and regular, no MRG. ABDOMEN: Abdomen soft, non-tender, no masses, no rebound or guarding. BACK: No CVA TTP. SKIN: No rashes and no bruising. UPPER EXTREMITIES: Upper extremities are grossly normal. LOWER EXTREMITIES: Grossly normal, no edema. NEURO EXAM: Eyes open but not able to follow commands, faint tremor of all 4 extremities noted Past Med/Surg History Medical History (Updated 10/19/22 @ 17:40 by Bowen Alford MD) Estevez's esophagus Bipolar 1 disorder Epilepsy GERD (gastroesophageal reflux disease) Migraine headache Other cervical disc displacement, high cervical region Restless leg syndrome Thyrotoxicosis NOS w/o crisis Surgical History H/O colonoscopy H/O esophagogastroduodenoscopy H/O toe surgery S/P cholecystectomy S/P ear surgery S/P tonsillectomy and adenoidectomy Family History Grandmother (Maternal) Heart disease Father Diabetes Heart disease Brother Migraine headache Grandmother (Paternal) Heart disease Social History Smoking Status: Former smoker Age Quit Using Tobacco: 28; Cigarettes Per Day: one pack per day; Second Hand Exposure: No; Do You Dip or Chew Tobacco: No; Tobacco Cessation Education Requested by Patient: No Hx Alcohol Use: Yes Alcohol type: beer, wine and hard liquor Hx Substance Use: No Preferred Language: Cymro Communication Ability: Effective Environmental Systems Coordinator Required: No Beliefs That Will Affect Care: None Current Living Situation: Parent and Family Current Living Situation Comment: LIVES WITH PARENTS current occupational status: disabled Other Information That Helps Us Care for You: No other: also security disability for the last 2 years because of multiple medical Feels Safe at Home: Yes Safety Concerns: Feels Safe At This Time Assistive Devices: Hearing Aid - Bilateral Assistive Devices Comment: HEARING AIDS NOT HERE Allergies Allergies Allergy/AdvReac Type Severity Reaction Status Date / Time promethazine AdvReac Severe CAUSED Verified 10/18/22 15:00 SEIZURE gabapentin AdvReac Intermediate confusion Verified 10/18/22 15:00 gluten AdvReac Intermediate VOMITING Verified 10/18/22 15:00 prednisone AdvReac Intermediate flushing Verified 10/18/22 15:00 and dizziness Home Meds Home Medications Medication Instructions Recorded Confirmed folic acid 1 mg tablet 1 mg PO QAM 12/04/19 10/18/22 ondansetron 8 mg disintegrating 8 mg PO Q8H PRN Nausea 12/04/19 10/18/22 tablet riboflavin (vitamin B2) 100 mg 100 mg PO DAILY 01/16/20 10/18/22 tablet (Vitamin B-2) venlafaxine 150 mg 150 mg PO DIRECTED 02/01/20 10/18/22 capsule,extended release 24 hr (Effexor XR) aripiprazole 30 mg tablet 30 mg PO QPM 04/02/22 10/18/22 erenumab-aooe 140 mg/mL 140 mg subcut MONTHLY 04/02/22 10/18/22 subcutaneous auto-injector norethindrone (contraceptive) 0.35 0.35 mg PO DAILY 04/02/22 10/18/22 mg tablet (Amy) trazodone 100 mg tablet 100 mg PO HS 04/02/22 10/18/22 Saccharomyces boulardii 250 mg 250 mg PO DAILY 10/18/22 10/18/22 capsule (Florastor) acetaminophen 500 mg tablet 1,000 mg PO Q6H PRN Pain 10/18/22 10/18/22 (Tylenol Extra Strength) albuterol sulfate 90 mcg/actuation 2 inh inhalation Q4H PRN Shortness 10/18/22 10/18/22 breath activated powder inhaler Of Breath Or Wheezing (ProAir RespiClick) budesonide-formoterol HFA 160 2 puff inhalation BID 10/18/22 10/18/22 mcg-4.5 mcg/actuation aerosol inhaler (Symbicort) cyanocobalamin (vitamin B-12) 100 100 mcg PO DAILY 10/18/22 10/18/22 mcg tablet (Vitamin B-12) diclofenac sodium 1 % topical gel 4 g topical QID PRN LOWER BACK PAIN 10/18/22 10/18/22 hydroxyzine HCl 25 mg tablet 25 mg PO TID PRN Anxiety 10/18/22 10/18/22 ibuprofen 600 mg tablet 600 mg PO Q6H PRN Pain 10/18/22 10/18/22 lansoprazole 30 mg capsule,delayed 30 mg PO DAILY 10/18/22 10/18/22 release (Prevacid) linaclotide 290 mcg capsule 290 mcg PO QAM 10/18/22 10/18/22 (Linzess) magnesium gluconate 27 mg 27 mg PO DAILY 10/18/22 10/18/22 magnesium (500 mg) tablet mirtazapine 15 mg tablet (Remeron) 15 mg PO HS 10/18/22 10/18/22 oxcarbazepine 150 mg tablet 150 mg PO DIRECTED 10/18/22 10/18/22 (Trileptal) vit no.95-ferrous 1 tab PO DAILY 10/18/22 10/18/22 fumarate 28 mg-folic acid 800 mcg tablet () sennosides 8.6 mg tablet (senna) 17.2 mg PO DAILY PRN Constipation 10/18/22 10/18/22 zonisamide 100 mg capsule 100 mg PO DIRECTED 10/18/22 10/18/22 zonisamide 50 mg capsule 50 mg PO DIRECTED 10/18/22 10/18/22 Results & Data (ED) Vital Signs Vital Signs - 24 hr 10/18/22 16:47 Pulse Rate [Apical] 103 H Respiratory Rate 17 Blood Pressure [Left Arm] 125/88 Blood Pressure Mean [Left Arm] 100 Pulse Oximetry 98 Oxygen Delivery Method Room Air Home Medications Current Medication List: was personally reviewed by me Laboratory Data Attestation: I reviewed the patient's lab results. 10/18/22 13:45 10/18/22 13:45 Lab Results 10/18/22 10/18/22 10/18/22 Range/Units 13:26 13:45 13:45 WBC 6.53 (4.8-10.8) K/ul RBC 4.63 (4.20-5.40) M/uL Hgb 13.1 (12.0-16.0) g/dl POC Hgb (12.0-16.0) g/dl Hct 40.6 (37.0-47.0) % POC Hct (37-47) % MCV 87.7 (80.0-100.0) fL MCH 28.3 (25.0-34.0) pg MCHC 32.3 (32.0-36.0) g/dL RDW Std Deviation 43.1 (36.4-46.3) fL RDW Coeff of Severiano 13.3 (11.5-14.5) % Plt Count 358 (130-400) K/uL MPV 10.4 (9.4-12.4) fL Immature Gran % (Auto) 0.2 % Neut % (Auto) 74.8 % Lymph % (Auto) 17.9 % [place] % (Auto) 5.2 % Eos % (Auto) 1.1 % Baso % (Auto) 0.8 % Neut # (Auto) 4.89 (1.40-6.50) K/uL Lymph # (Auto) 1.17 L (1.2-3.4) K/uL [place] # (Auto) 0.34 (0.11-0.59) K/uL Eos # (Auto) 0.07 (0-0.50) K/uL Baso # (Auto) 0.05 (0-0.2) K/uL Immature Gran # (Auto) 0.01 (0.01-0.20) K/uL POC Sodium (135-144) mmol/L Sodium 139 (136-145) mmol/L POC Potassium (3.3-5.0) mmol/L Potassium 3.9 (3.5-5.1) mmol/L POC Chloride (101-112) mmol/L Chloride 106 (98-107) mmol/L Carbon Dioxide 17 L (21-32) mmol/L POC Total CO2 (24-31) mmol/L Anion Gap 16 H (3-11) POC Anion Gap (16-25) mmol/L POC BUN (7-18) mg/dl BUN 7 (6-23) mg/dl Creatinine 0.84 (0.6-1.2) mg/dl POC Creatinine (0.6-1.3) mg/dl Est Cr Clr Drug Dosing 97.1 ml/min Est GFR ( Amer) 101.5 ml/min Est GFR (Non-Af Amer) 87.6 ml/min BUN/Creatinine Ratio 8.3 L (10-20) Glucose 121 H (70-99(Fasting)) mg/dl POC Glucose 121 H (70-99) mg/dl POC Glucose (other) (70-99) mg/dl Lactate (0.4-2.0) mmol/L Calcium 8.9 (8.6-10.3) mg/dl POC Ioniz Calcium Lisa (1.12-1.32) mmol/l Phosphorus 2.7 (2.5-4.9) mg/dl Magnesium 2.0 (1.7-2.4) mg/dl Total Bilirubin 0.2 (0.2-1.0) mg/dl AST 22 (13-39) U/L ALT 11 (7-52) U/L Alkaline Phosphatase 206 H (34-104) U/L Total Protein 7.8 (6.0-8.3) gm/dl Albumin 4.2 (3.4-5.0) gm/dl Globulin 3.6 (2.5-4.0) gm/dl Albumin/Globulin Ratio 1.2 (0.9-2) Procalcitonin (0-0.5) ng/ml Urine Color Urine Appearance (Clear) Urine pH (4.5-7.5) Ur Specific Ava (1.000-1.030) Urine Protein (Negative) Urine Glucose (UA) (Negative) Urine Ketones (Negative) Urine Blood (Negative) Urine Nitrite (Negative) Urine Bilirubin (Negative) Urine Urobilinogen (Negative) Ur Leukocyte Esterase (Negative) Urine WBC (Auto) (0-5) /hpf Urine RBC (Auto) (0-4) /hpf U Hyaline Cast (Auto) (0-5) /lpf U Epithel Cells (Auto) (0-5) /lpf Urine Bacteria (Auto) (Negative) Adenovirus (PCR) (NotDetected) B. pertussis DNA (PCR) (NotDetected) B.parapertussis DNA PCR (NotDetected) C. pneumoniae DNA (PCR) (NotDetected) Coronavirus OC43 (PCR) (NotDetected) Coronavirus HKU1 (PCR) (NotDetected) Coronavirus 229E (PCR) (NotDetected) SARS-CoV-2 (PCR) (NotDetected) Coronavirus NL63 (PCR) (NotDetected) Human Metapneumovir PCR (NotDetected) Influenza Type A (PCR) (NotDetected) Influenza Type B (PCR) (NotDetected) M. pneumoniae (PCR) (NotDetected) Parainfluenza 1 (PCR) (NotDetected) Parainfluenza 2 (PCR) (NotDetected) Parainfluenza 3 (PCR) (NotDetected) Parainfluenza 4 (PCR) (NotDetected) RSV (PCR) (NotDetected) Entero/Rhino (PCR) (NotDetected) 10/18/22 10/18/22 10/18/22 Range/Units 13:45 13:45 13:46 WBC (4.8-10.8) K/ul RBC (4.20-5.40) M/uL Hgb (12.0-16.0) g/dl POC Hgb 13.9 (12.0-16.0) g/dl Hct (37.0-47.0) % POC Hct 41 (37-47) % MCV (80.0-100.0) fL MCH (25.0-34.0) pg MCHC (32.0-36.0) g/dL RDW Std Deviation (36.4-46.3) fL RDW Coeff of Severiano (11.5-14.5) % Plt Count (130-400) K/uL MPV (9.4-12.4) fL Immature Gran % (Auto) % Neut % (Auto) % Lymph % (Auto) % [place] % (Auto) % Eos % (Auto) % Baso % (Auto) % Neut # (Auto) (1.40-6.50) K/uL Lymph # (Auto) (1.2-3.4) K/uL [place] # (Auto) (0.11-0.59) K/uL Eos # (Auto) (0-0.50) K/uL Baso # (Auto) (0-0.2) K/uL Immature Gran # (Auto) (0.01-0.20) K/uL POC Sodium 141 (135-144) mmol/L Sodium (136-145) mmol/L POC Potassium 3.9 (3.3-5.0) mmol/L Potassium (3.5-5.1) mmol/L POC Chloride 108 (101-112) mmol/L Chloride (98-107) mmol/L Carbon Dioxide (21-32) mmol/L POC Total CO2 16 L (24-31) mmol/L Anion Gap (3-11) POC Anion Gap 21.0 (16-25) mmol/L POC BUN 5 L (7-18) mg/dl BUN (6-23) mg/dl Creatinine (0.6-1.2) mg/dl POC Creatinine 0.7 (0.6-1.3) mg/dl Est Cr Clr Drug Dosing ml/min Est GFR ( Amer) ml/min Est GFR (Non-Af Amer) ml/min BUN/Creatinine Ratio (10-20) Glucose (70-99(Fasting)) mg/dl POC Glucose (70-99) mg/dl POC Glucose (other) 126 H (70-99) mg/dl Lactate 7.5 H* (0.4-2.0) mmol/L Calcium (8.6-10.3) mg/dl POC Ioniz Calcium Lisa 1.08 L (1.12-1.32) mmol/l Phosphorus (2.5-4.9) mg/dl Magnesium (1.7-2.4) mg/dl Total Bilirubin (0.2-1.0) mg/dl AST (13-39) U/L ALT (7-52) U/L Alkaline Phosphatase (34-104) U/L Total Protein (6.0-8.3) gm/dl Albumin (3.4-5.0) gm/dl Globulin (2.5-4.0) gm/dl Albumin/Globulin Ratio (0.9-2) Procalcitonin < 0.05 (0-0.5) ng/ml Urine Color Urine Appearance (Clear) Urine pH (4.5-7.5) Ur Specific Ava (1.000-1.030) Urine Protein (Negative) Urine Glucose (UA) (Negative) Urine Ketones (Negative) Urine Blood (Negative) Urine Nitrite (Negative) Urine Bilirubin (Negative) Urine Urobilinogen (Negative) Ur Leukocyte Esterase (Negative) Urine WBC (Auto) (0-5) /hpf Urine RBC (Auto) (0-4) /hpf U Hyaline Cast (Auto) (0-5) /lpf U Epithel Cells (Auto) (0-5) /lpf Urine Bacteria (Auto) (Negative) Adenovirus (PCR) (NotDetected) B. pertussis DNA (PCR) (NotDetected) B.parapertussis DNA PCR (NotDetected) C. pneumoniae DNA (PCR) (NotDetected) Coronavirus OC43 (PCR) (NotDetected) Coronavirus HKU1 (PCR) (NotDetected) Coronavirus 229E (PCR) (NotDetected) SARS-CoV-2 (PCR) (NotDetected) Coronavirus NL63 (PCR) (NotDetected) Human Metapneumovir PCR (NotDetected) Influenza Type A (PCR) (NotDetected) Influenza Type B (PCR) (NotDetected) M. pneumoniae (PCR) (NotDetected) Parainfluenza 1 (PCR) (NotDetected) Parainfluenza 2 (PCR) (NotDetected) Parainfluenza 3 (PCR) (NotDetected) Parainfluenza 4 (PCR) (NotDetected) RSV (PCR) (NotDetected) Entero/Rhino (PCR) (NotDetected) 10/18/22 10/18/22 10/18/22 Range/Units 14:25 15:50 16:34 WBC (4.8-10.8) K/ul RBC (4.20-5.40) M/uL Hgb (12.0-16.0) g/dl POC Hgb (12.0-16.0) g/dl Hct (37.0-47.0) % POC Hct (37-47) % MCV (80.0-100.0) fL MCH (25.0-34.0) pg MCHC (32.0-36.0) g/dL RDW Std Deviation (36.4-46.3) fL RDW Coeff of Severiano (11.5-14.5) % Plt Count (130-400) K/uL MPV (9.4-12.4) fL Immature Gran % (Auto) % Neut % (Auto) % Lymph % (Auto) % [place] % (Auto) % Eos % (Auto) % Baso % (Auto) % Neut # (Auto) (1.40-6.50) K/uL Lymph # (Auto) (1.2-3.4) K/uL [place] # (Auto) (0.11-0.59) K/uL Eos # (Auto) (0-0.50) K/uL Baso # (Auto) (0-0.2) K/uL Immature Gran # (Auto) (0.01-0.20) K/uL POC Sodium (135-144) mmol/L Sodium (136-145) mmol/L POC Potassium (3.3-5.0) mmol/L Potassium (3.5-5.1) mmol/L POC Chloride (101-112) mmol/L Chloride (98-107) mmol/L Carbon Dioxide (21-32) mmol/L POC Total CO2 (24-31) mmol/L Anion Gap (3-11) POC Anion Gap (16-25) mmol/L POC BUN (7-18) mg/dl BUN (6-23) mg/dl Creatinine (0.6-1.2) mg/dl POC Creatinine (0.6-1.3) mg/dl Est Cr Clr Drug Dosing ml/min Est GFR ( Amer) ml/min Est GFR (Non-Af Amer) ml/min BUN/Creatinine Ratio (10-20) Glucose (70-99(Fasting)) mg/dl POC Glucose (70-99) mg/dl POC Glucose (other) (70-99) mg/dl Lactate 1.2 (0.4-2.0) mmol/L Calcium (8.6-10.3) mg/dl POC Ioniz Calcium Lisa (1.12-1.32) mmol/l Phosphorus (2.5-4.9) mg/dl Magnesium (1.7-2.4) mg/dl Total Bilirubin (0.2-1.0) mg/dl AST (13-39) U/L ALT (7-52) U/L Alkaline Phosphatase (34-104) U/L Total Protein (6.0-8.3) gm/dl Albumin (3.4-5.0) gm/dl Globulin (2.5-4.0) gm/dl Albumin/Globulin Ratio (0.9-2) Procalcitonin (0-0.5) ng/ml Urine Color Yellow Urine Appearance Clear (Clear) Urine pH 7.0 (4.5-7.5) Ur Specific Ava 1.013 (1.000-1.030) Urine Protein Negative (Negative) Urine Glucose (UA) Negative (Negative) Urine Ketones Negative (Negative) Urine Blood Negative (Negative) Urine Nitrite Negative (Negative) Urine Bilirubin Negative (Negative) Urine Urobilinogen Negative (Negative) Ur Leukocyte Esterase Trace H (Negative) Urine WBC (Auto) 1-5 (0-5) /hpf Urine RBC (Auto) 0-4 (0-4) /hpf U Hyaline Cast (Auto) 0 (0-5) /lpf U Epithel Cells (Auto) 20-30 H (0-5) /lpf Urine Bacteria (Auto) Negative (Negative) Adenovirus (PCR) Not Detected (NotDetected) B. pertussis DNA (PCR) Not Detected (NotDetected) B.parapertussis DNA PCR Not Detected (NotDetected) C. pneumoniae DNA (PCR) Not Detected (NotDetected) Coronavirus OC43 (PCR) Not Detected (NotDetected) Coronavirus HKU1 (PCR) Not Detected (NotDetected) Coronavirus 229E (PCR) Not Detected (NotDetected) SARS-CoV-2 (PCR) Not Detected (NotDetected) Coronavirus NL63 (PCR) Not Detected (NotDetected) Human Metapneumovir PCR Not Detected (NotDetected) Influenza Type A (PCR) Not Detected (NotDetected) Influenza Type B (PCR) Not Detected (NotDetected) M. pneumoniae (PCR) Not Detected (NotDetected) Parainfluenza 1 (PCR) Not Detected (NotDetected) Parainfluenza 2 (PCR) Not Detected (NotDetected) Parainfluenza 3 (PCR) Not Detected (NotDetected) Parainfluenza 4 (PCR) Not Detected (NotDetected) RSV (PCR) Not Detected (NotDetected) Entero/Rhino (PCR) Not Detected (NotDetected) Administered Medications Acetaminophen (Acetaminophen 500 Mg Tab) 1,000 mg PO Q6H PRN PRN Reason: Pain Stop: 11/17/22 18:30 Last Admin: 10/18/22 23:29 Dose: 1,000 mg Documented By: HANNAH Aripiprazole (Aripiprazole 15 Mg Tab) 30 mg PO QPM AMELIA Stop: 11/17/22 20:59 Last Admin: 10/18/22 20:31 Dose: 30 mg Documented By: HANNAH Cyanocobalamin (Cyanocobalamin (B-12) 100 Mcg Tablet) 100 mcg PO DAILY AMELIA Stop: 11/18/22 08:59 Last Admin: 10/19/22 09:45 Dose: 100 mcg Documented By: JEAN-PIERRE Fluticasone/Vilanterol (Fluticasone/Vilanterol 100/25mcg 14 Puffs/Inhaler) 1 puffs INH DAILY AMELIA Stop: 11/18/22 08:59 Last Admin: 10/19/22 09:45 Dose: 1 puffs Documented By: JEAN-PIERRE Folic Acid (Folic Acid 1 Mg Tab) 1 mg PO QAM AMELIA Stop: 11/18/22 08:59 Last Admin: 10/19/22 09:45 Dose: 1 mg Documented By: JEAN-PIERRE Hydroxyzine HCl (Hydroxyzine Hcl 25 Mg Tab) 25 mg PO TID PRN PRN Reason: Anxiety Stop: 11/17/22 18:30 Last Admin: 10/19/22 13:38 Dose: 25 mg Documented By: JEAN-PIERRE Ketorolac Tromethamine (Ketorolac Tromethamine 15 Mg/Ml Vial) 10 mg IV Q6H PRN PRN Reason: Pain Stop: 10/23/22 18:30 Last Admin: 10/19/22 09:45 Dose: 10 mg Documented By: JEAN-PIERRE Admin: 10/19/22 03:12 Dose: 10 mg Documented By: Admin: 10/18/22 20:55 Dose: 10 mg Documented By: HANNAH Lacosamide (Lacosamide 50 Mg Tablet) 100 mg PO BID AMELIA Stop: 11/17/22 20:59 Last Admin: 10/19/22 09:45 Dose: 100 mg Documented By: JEAN-PIERRE Admin: 10/18/22 20:30 Dose: 100 mg Documented By: HANNAH Lamotrigine (Lamotrigine 25 Mg Tab) 25 mg PO BID AMELIA Stop: 11/17/22 20:59 Last Admin: 10/19/22 09:45 Dose: 25 mg Documented By: JEAN-PIERRE Admin: 10/18/22 20:31 Dose: 25 mg Documented By: HANNAH Mirtazapine (Mirtazapine Tab 15 Mg Tab) 15 mg PO HS AMELIA Stop: 11/17/22 20:59 Last Admin: 10/18/22 20:30 Dose: 15 mg Documented By: HANNAH Miscellaneous (Order Awaiting Action: Norethindrone (Contraceptive) [Amy] 0.35 Mg Tablet) 1 each N/A QS [facility] Stop: 11/18/22 00:00 Last Admin: 10/19/22 14:18 Dose: Not Given Documented By: JEAN-PIERRE Admin: 10/19/22 08:25 Dose: Not Given Documented By: JEAN-PIERRE Admin: 10/19/22 00:07 Dose: Not Given Documented By: HANNAH Ondansetron HCl (Ondansetron 8mg Od Tab) 8 mg PO Q8H PRN PRN Reason: Nausea Stop: 11/17/22 18:30 Last Admin: 10/19/22 13:38 Dose: 8 mg Documented By: JEAN-PIERRE Admin: 10/18/22 20:52 Dose: 8 mg Documented By: HANNAH Oxcarbazepine (Oxcarbazepine 150 Mg Tablet) 300 mg PO BID [facility] Stop: 11/17/22 20:59 Last Admin: 10/19/22 09:45 Dose: 300 mg Documented By: JEAN-PIERRE Admin: 10/18/22 20:31 Dose: 300 mg Documented By: HANNAH Pantoprazole Sodium (Pantoprazole 40 Mg Tab) 40 mg PO DAILY [facility] Stop: 11/18/22 08:59 Last Admin: 10/19/22 09:46 Dose: 40 mg Documented By: JEAN-PIERRE Saccharomyces Boulardii (Saccharomyces Boulardii 250 Mg Cap) 250 mg PO DAILY [facility] Stop: 11/18/22 08:59 Last Admin: 10/19/22 09:45 Dose: 250 mg Documented By: JEAN-PIERRE Trazodone HCl (Trazodone Hcl 50 Mg Tab) 50 mg PO HS [facility] Stop: 11/17/22 20:59 Last Admin: 10/18/22 20:28 Dose: Not Given Documented By: HANNAH Venlafaxine HCl (Venlafaxine Hcl Xr 150 Mg Capxr) 150 mg PO BIDM [facility] Stop: 11/17/22 18:59 Last Admin: 10/19/22 16:51 Dose: 150 mg Documented By: JEAN-PIERRE Admin: 10/19/22 09:45 Dose: 150 mg Documented By: JEAN-PIERRE Admin: 10/18/22 20:19 Dose: Not Given Documented By: HANNAH Zonisamide (Zonisamide 100 Mg Capsule) 100 mg PO BID AMELIA Stop: 11/17/22 20:59 Last Admin: 10/19/22 09:45 Dose: 100 mg Documented By: Admin: 10/18/22 20:30 Dose: 100 mg Documented By: MDKanika Discontinued Medications Sodium Chloride (Nss 1000ml) 1,000 mls @ 999 mls/hr IV .Q1H1M AMELIA Stop: 10/18/22 14:45 Last Infusion: 10/18/22 17:06 Dose: 0 mls/hr Documented By: Infusion: 10/18/22 16:03 Dose: 999 mls/hr Documented By: Admin: 10/18/22 14:30 Dose: 999 mls/hr Documented By: HS Levetiracetam 2,250 mg/ Sodium (Chloride) 272.5 mls @ 999 mls/hr IV NOW STA Stop: 10/18/22 13:47 Last Infusion: 10/18/22 14:46 Dose: 0 mls/hr Documented By: Admin: 10/18/22 14:29 Dose: 999 mls/hr Documented By: HS Sodium Chloride (Nss 1000ml) 1,000 mls @ 999 mls/hr IV .Q1H1M ONE Stop: 10/18/22 15:10 Last Infusion: 10/18/22 17:49 Dose: 0 mls/hr Documented By: Admin: 10/18/22 16:48 Dose: 999 mls/hr Documented By: Parenteral Electrolytes (Plasma-Lyte A Ph 7.4) 1,000 mls @ 999 mls/hr IV .Q1H1M ONE Stop: 10/18/22 15:20 Last Infusion: 10/18/22 16:37 Dose: 0 mls/hr Documented By: Infusion: 10/18/22 16:03 Dose: 999 mls/hr Documented By: Admin: 10/18/22 14:50 Dose: 999 mls/hr Documented By: HS Acetaminophen (Ofirmev) 1,000 mg in 100 mls @ 400 mls/hr IV NOW STA Stop: 10/18/22 15:17 Last Infusion: 10/18/22 16:03 Dose: 0 mls/hr Documented By: Admin: 10/18/22 15:10 Dose: 400 mls/hr Documented By: HS Ioversol (Optiray 320 500ml) 117 ml IV ONCE ONE Stop: 10/18/22 14:09 Last Admin: 10/18/22 14:09 Dose: 117 ml Documented By: KEVIN Ketorolac Tromethamine (Ketorolac Tromethamine 15 Mg/Ml Vial) 10 mg IV NOW ONE Stop: 10/18/22 15:04 Last Admin: 10/18/22 15:10 Dose: 10 mg Documented By: HS Lorazepam (Lorazepam 2 Mg/1 Ml Vial) Confirm Administered Dose 2 mg .ROUTE .STK- MED ONE Stop: 10/18/22 13:22 Last Admin: 10/18/22 13:28 Dose: 2 mg Documented By: ML Lorazepam (Lorazepam 2 Mg/1 Ml Vial) 2 mg IM NOW STA Stop: 10/18/22 13:34 Last Admin: 10/18/22 13:30 Dose: 2 mg Documented By: HS Metoclopramide HCl (Metoclopramide Hcl Inj 5 Mg/Ml 2 Ml Vial) 5 mg IV ONE ONE Stop: 10/19/22 13:49 Last Admin: 10/19/22 14:17 Dose: 5 mg Documented By: JEAN-PIERRE Morphine Sulfate (Morphine Sulfate 2 Mg/Ml Carp) 2 mg IV NOW STA Stop: 10/18/22 23:37 Last Admin: 10/19/22 00:02 Dose: 2 mg Documented By: HANNAH Sumatriptan Succinate (Sumatriptan Succinate 50 Mg Tab) 50 mg PO NOW STA Stop: 10/19/22 05:07 Last Admin: 10/19/22 05:17 Dose: 50 mg Documented By: HANNAH Imaging Data Radiologist's Impression: Head CT 10/18/22 13:31 CT angio head w con, CT head/brain wo con, CT angio neck with con CLINICAL HISTORY: MCCORMICK, increasing seizure frequency TECHNIQUE: Contiguous axial CT images of the head were acquired from the base of the skull to the vertex without intravenous contrast administration. CT angiography of the head and neck was performed following intravenous ad ministration of iodinated contrast. Coronal and sagittal MIPS were obtained from the axial data set and were submitted for review. Automated dose lowering techniques and/or adjustment according to patient size were utilized for this examination. All measurements were calculated based on NASCET criteria. CT DOSE: 1025.82 mGy.cm Comparison: Comparison is made to MRI brain 06/10/2022 FINDINGS: CT head: There is no acute intracranial hemorrhage or evidence of acute territorial infarction. No shift of the midline structures, mass effect, or extra-axial abnormalities are shown. Calcified anterior falx is Lungs and soft tissues are unremarkable. CTA Neck: A 3 vessel aortic arch is shown. There is no significant atherosclerotic plaque in the aortic arch or the origins of the innominate, left common carotid, and left subclavian arteries. The common carotid, external carotid, cervical segments of the internal carotid arteries, and the cervical segments of the vertebral arteries are patent without hemodynamically significant stenosis. The left vertebral artery is dominant. CTA Head: The anterior and posterior cerebral circulations are patent. No hemodynamically significant stenosis, aneurysm, dissection, or arteriovenous malformation is shown. IMPRESSION: 1. No acute intracranial hemorrhage, evidence of acute territorial infarction, or other acute intracranial disease process. 2. No occlusion, hemodynamically significant stenosis, or dissection in the major cervical arteries. 3. No occlusion, hemodynamically significant stenosis, aneurysm, dissection, or arteriovenous malformation in the major intracranial arteries. Assessment of stenosis of the internal carotid arteries is based on NASCET criteria. ACT 112: Negative or not required by law. Electronically signed by: Andriy Mcclure M.D. 10/18/2022 2:25 PM Head CTA 10/18/22 13:31 CT angio head w con, CT head/brain wo con, CT angio neck with con CLINICAL HISTORY: MCCORMICK, increasing seizure frequency TECHNIQUE: Contiguous axial CT images of the head were acquired from the base of the skull to the vertex without intravenous contrast administration. CT angiography of the head and neck was performed following intravenous administration of iodinated contrast. Coronal and sagittal MIPS were obtained from the axial data set and were submitted for review. Automated dose lowering techniques and/or adjustment according to patient size were utilized for this examination. All measurements were calculated based on NASCET criteria. CT DOSE: 1025.82 mGy.cm Comparison: Comparison is made to MRI brain 06/10/2022 FINDINGS: CT head: There is no acute intracranial hemorrhage or evidence of acute territorial infarction. No shift of the midline structures, mass effect, or extra-axial abnormalities are shown. Calcified anterior falx is Lungs and soft tissues are unremarkable. CTA Neck: A 3 vessel aortic arch is shown. There is no significant atheroscle rotic plaque in the aortic arch or the origins of the innominate, left common carotid, and left subclavian arteries. The common carotid, external carotid, cervical segments of the internal carotid arteries, and the cervical segments of the vertebral arteries are patent without hemodynamically significant stenosis. The left vertebral artery is dominant. CTA Head: The anterior and posterior cerebral circulations are patent. No hemodynamically significant stenosis, aneurysm, dissection, or arteriovenous malformation is shown. IMPRESSION: 1. No acute intracranial hemorrhage, evidence of acute territorial infarction, or other acute intracranial disease process. 2. No occlusion, hemodynamically significant stenosis, or dissection in the major cervical arteries. 3. No occlusion, hemodynamically significant stenosis, aneurysm, dissection, or arteriovenous malformation in the major intracranial arteries. Assessment of stenosis of the internal carotid arteries is based on NASCET cri teria. ACT 112: Negative or not required by law. Electronically signed by: Andriy Mcclure M.D. 10/18/2022 2:25 PM Neck CTA 10/18/22 13:31 CT angio head w con, CT head/brain wo con, CT angio neck with con CLINICAL HISTORY: MCCORMICK, increasing seizure frequency TECHNIQUE: Contiguous axial CT images of the head were acquired from the base of the skull to the vertex without intravenous contrast administration. CT angiography of the head and neck was performed following intravenous administration of iodinated contrast. Coronal and sagittal MIPS were obtained from the axial data set and were submitted for review. Automated dose lowering techniques and/or adjustment according to patient size were utilized for this examination. All measurements were calculated based on NASCET criteria. CT DOSE: 1025.82 mGy.cm Comparison: Comparison is made to MRI brain 06/10/2022 FINDINGS: CT head: There is no acute intracranial hemorrhage or evidence of acute ter ritorial infarction. No shift of the midline structures, mass effect, or extra- axial abnormalities are shown. Calcified anterior falx is Lungs and soft tissues are unremarkable. CTA Neck: A 3 vessel aortic arch is shown. There is no significant atherosclerotic plaque in the aortic arch or the origins of the innominate, left common carotid, and left subclavian arteries. The common carotid, external carotid, cervical segments of the internal carotid arteries, and the cervical segments of the vertebral arteries are patent without hemodynamically significant stenosis. The left vertebral artery is dominant. CTA Head: The anterior and posterior cerebral circulations are patent. No hemodynamically significant stenosis, aneurysm, dissection, or arteriovenous malformation is shown. IMPRESSION: 1. No acute intracranial hemorrhage, evidence of acute territorial infarction, or other acute intracranial disease process. 2. No occlusion, hemodynamically significant stenosis, or dissection in the major cervical arteries. 3. No occlusion, hemodynamically significant stenosis, aneurysm, dissection, or arteriovenous malformation in the major intracranial arteries. Assessment of stenosis of the internal carotid arteries is based on NASCET criteria. ACT 112: Negative or not required by law. Electronically signed by: Andriy Mcclure M.D. 10/18/2022 2:25 PM Chest X-Ray 10/18/22 15:28 SINGLE VIEW CHEST CLINICAL HISTORY: Fever FINDINGS: An AP, portable, upright chest radiograph is compared to study dated 02/03/2020. The cardiomediastinal silhouette is unremarkable. The lungs and pleural spaces are clear. No pneumothorax is seen. The bony thorax is grossly intact. Cholecystectomy clips are noted in the right upper quadrant. IMPRESSION: No active disease in the chest. ACT 112: Negative or not required by law. Electronically signed by: Inderjit Garcia M.D. 10/18/2022 3:52 PM Discharge Plan Visit Data Chief Complaint: Seizure Stated Complaint: SEIZURE ED Provider: Bowen Alford Discharge Problem: Epileptic seizure, Seizure disorder, Fever, Acidosis, lactic Patient Disposition: Admitted As Inpatient Discharge Instructions Interventions: ED Discharge Assessment Last Done: 10/18/22 18:14
--- NOTE | 2022-10-18 14:28 | CT Scan Report ---
CT angio head w con, CT head/brain wo con, CT angio neck with con CLINICAL HISTORY: MCCORMICK, increasing seizure frequency TECHNIQUE: Contiguous axial CT images of the head were acquired from the base of the skull to the mimi lizette without intravenous contrast administration. CT angiography of the head and neck was performed f ollowing intravenous administration of iodinated contrast. Coronal and sagittal MIPS were obtained fr om the axial data set and were submitted for review. Automated dose lowering techniques and/or adjus tment according to patient size were utilized for this examination. All measurements were calculated based on NASCET criteria. CT DOSE: 1025.82 mGy.cm Comparison: Comparison is made to MRI brain 06/10/2022 FINDINGS: CT head: There is no acute intracranial hemorrhage or evidence of acute territorial infarction. No sh ift of the midline structures, mass effect, or extra-axial abnormalities are shown. Calcified anterio r falx is Lungs and soft tissues are unremarkable. CTA Neck: A 3 vessel aortic arch is shown. There is no significant atherosclerotic plaque in the aor tic arch or the origins of the innominate, left common carotid, and left subclavian arteries. The co mmon carotid, external carotid, cervical segments of the internal carotid arteries, and the cervical segments of the vertebral arteries are patent without hemodynamically significant stenosis. The left vertebral artery is dominant. CTA Head: The anterior and posterior cerebral circulations are patent. No hemodynamically significan t stenosis, aneurysm, dissection, or arteriovenous malformation is shown. IMPRESSION: 1. No acute intracranial hemorrhage, evidence of acute territorial infarction, or other acute intrac ranial disease process. 2. No occlusion, hemodynamically significant stenosis, or dissection in the major cervical arteries. 3. No occlusion, hemodynamically significant stenosis, aneurysm, dissection, or arteriovenous malfor mation in the major intracranial arteries. Assessment of stenosis of the internal carotid arteries is based on NASCET criteria. ACT 112: Negative or not required by law. Electronically signed by: Andriy Mcclure M.D. 10/18/2022 2:25 PM
[2022-10-18 14:50] LABS: Albumin Globulin Ratio 1.2 (0.9-2); Albumin Level 4.2 gm/dl (3.4-5.0); BUN Creatinine Ratio 8.3 (10-20); Bilirubin,Total 0.2 mg/dl (0.2-1.0); Calcium 8.9 mg/dl (8.6-10.3); Creatinine Clr Calc Pharmacy 97.1 ml/min; Est GFR (African American) 101.5 ml/min; Est GFR (Non-African American) 87.6 ml/min; Globulin 3.6 gm/dl (2.5-4.0); Phosphorus 2.7 mg/dl (2.5-4.9); Potassium 3.9 mmol/L (3.5-5.1); Total Protein 7.8 gm/dl (6.0-8.3)
[2022-10-18 15:02] LABS: Hematocrit (blood only) 40.6 % (37.0-47.0); Hemoglobin 13.1 g/dl (12.0-16.0); Mean Corpuscular Hemoglobin 28.3 pg (25.0-34.0); Mean Corpuscular Hgb Conc 32.3 g/dL (32.0-36.0); Mean Corpuscular Volume 87.7 fL (80.0-100.0); Mean Platelet Volume 10.4 fL (9.4-12.4); Platelet Count 358 K/uL (130-400); RDW Coefficient of Variation 13.3 % (11.5-14.5); RDW Standard Deviation 43.1 fL (36.4-46.3); Red Blood Count 4.63 M/uL (4.20-5.40); White Blood Count 6.53 K/ul (4.8-10.8)
[2022-10-18 15:03] LABS: Basophils # (auto) 0.05 K/uL (0-0.2); Basophils % (auto) 0.8 %; Eosinophils # (auto) 0.07 K/uL (0-0.50); Eosinophils % (auto) 1.1 %; Immature Granulocytes # (auto) 0.01 K/uL (0.01-0.20); Immature Granulocytes % (auto) 0.2 %; Lymphocytes # (auto) 1.17 K/uL (1.2-3.4); Lymphocytes % (auto) 17.9 %; Monocytes # (auto) 0.34 K/uL (0.11-0.59); Monocytes % (auto) 5.2 %; Neutrophils # (auto) 4.89 K/uL (1.40-6.50); Neutrophils % (auto) 74.8 %
[2022-10-18] MEDS ORDERED: KETOROLAC TROMETHAMINE 15 MG/ML VIAL IV ONE (15:03)
[2022-10-18] MEDS ORDERED: ACETAMINOPHEN 1,000 MG/100 ML VIAL IV STA (15:03)
--- NOTE | 2022-10-18 15:53 | XRay Report ---
SINGLE VIEW CHEST CLINICAL HISTORY: Fever FINDINGS: An AP, portable, upright chest radiograph is compared to study dated 02/03/2020. The cardiom ediastinal silhouette is unremarkable. The lungs and pleural spaces are clear. No pneumothorax is see n. The bony thorax is grossly intact. Cholecystectomy clips are noted in the right upper quadrant. IMPRESSION: No active disease in the chest. ACT 112: Negative or not required by law. Electronically signed by: Inderjit Garcia M.D. 10/18/2022 3:52 PM
--- NOTE | 2022-10-18 15:57 | History & Physical Report ---
Date of Service October 18, 2022 Assessment & Plan (1) Seizure disorder: Plan: Multiple Seizures - Recently seen at [facility]. As Vimpat and Trileptal were both sodium channel agents Vimpat was continued at 200 mg twice daily, Zonegran changed to 300mg & w/ intention to continue wean as outpatient, Trileptal was eventually to be discontinued, and she was started on lamotrigine 25 mg daily with plans to uptitrate. At [facility] 10/17/2022 evaluation she was noted to have a severe headache on 10/16 with tingling in the hands similar to prior. At that time she was weaning Zonegran from 200-150. She was discharged and recommended to follow-up with [facility] neurology. - Per family at time of ER assessment at ER her meds were: - Taking trileptal 150am / 300pm, was to stop but wanted to discuss with [facility] first - Lamical not taking yet, has script but not picked up or started 25mg yet - Zonegram is taking 100mg BID, was supposed to go to 50 but held at 100mg BID due to seizures - She is still taking vimpat 200mg BID - For psycyh she is taking effexor 150mg XR BID, aripiprazole 30mg daily, mirtazepine 15mg HS CThead/CTA-H/N: 1. No acute intracranial hemorrhage, evidence of acute territorial infarction, or other acute intracranial disease process. 2. No occlusion, hemodynamically significant stenosis, or dissection in the major cervical arteries. 3. No occlusion, hemodynamically significant stenosis, aneurysm, dissection, or arteriovenous malformation in the major intracranial arteries. CXR: naf Lactate of 7.5 on admission consistent with recurrent seizures, normalized on recheck at time of admission Discussed w/ neurology/Dr. Crowe on admit. Given above and comorbities will adjust medications and continue as follows: - Trileptal 300mg BID (level pending) - Lamictal 25mg BID with goal of slow uptitration - Zonisamide 100mg BID (level pending) - Vimpat 100mg BID (level pending) - Ativan for breakthrough - NO additional keppra. Pt did get 2250mg in ER. NO topamax. - Seizure precautions - AM Neuro consult placed, appreciate recommendations -Psychotropic medications continued as noted - Seizure precautions Ativan 2 mg every 5 minutes for breakthrough, max 3 doses per episode Notify provider if required (2) Bipolar 1 disorder: Plan: Bipolar 1 disorder, generalized anxiety - Will continue trazodone, aripiprazole, mirtazepine, and effexor for underlying mood disorder. Trazodone dose decreased. These can contribute to seizure. Psych consulted for assistance with med management and possible reductions. Dyskinesia of the tongue/lips is noted, mild. No extremity tremor on admitting exam. (3) Dysuria: Plan: Dysuria Patient reports 2 to 3 weeks of dysuria intermittently with urgency She does have history of kidney stones, ultrasound and CT scan this month did not show evidence of stone/obstructive uropathy UA pending for UTI symptoms. Defer empiric treatment to UA due to multiple interactions and medical complexity. If UA positive --> rocephin 1 fever following seizure, no photosensitivity/nuchal rigidity. Fever curve trended. Blood cultures are pending (4) History of nephrolithiasis: Plan: History of nephrolithiasis Recent left flank pain/dysuria Renal ultrasound 10/[address] scan 10/16/2022: No urolithiasis, obstructive uropathy noted. No hydro. Normal bladder. No acute findings of abdomen or pelvis - No leukocytosis Hemoglobin normal Sodium normal Potassium normal CO2 17, anion gap 16 with elevated lactate, creatinine 0.84 Magnesium 2.0 Phosphorus normal Alk phos chronically elevated, down trended to 206 from prior Procalcitonin pending (5) MONIQUE (generalized anxiety disorder): Plan: as noted (6) Fibromyalgia: (7) GERD (gastroesophageal reflux disease): Plan: GERD/hx barrets PPI converted to Protonix while inpatient (8) Headache: Plan: Migraine - On erenumab monthly Patient does endorse a headache slightly different from her normal migraines on arrival, these are present with tenderness on the occiput suspect due to recurrent seizure activity No nuchal rigidity or photosensitivity Continue Tylenol, Toradol Patient has had minimal benefit with triptans in the past History of Present Illness Primary Care Provider: Mirtha Lopez is a 37-year-old female with a past medical history of epilepsy/PNES, intellectual disability, migraines, anxiety/depression, fibromyalgia, Crohn's disease, and restless leg syndrome who was seen in at [facility] for abdominal pain and seizure-like activity was suspected to have had seizure-like activity in the setting of abdominal pain and migraine. Her sensations of tingling had beetn previously captured on continuous monitoring unit with no EEG correlate/consistent with PNES and was thought to be related to her migraines. Per prior note review As Vimpat and Trileptal were both sodium channel agents Vimpat was continued at 200 mg twice daily, Zonegran changed to 300mg & w/ iuntention to continue wean as outpatient, Trileptal was to be discontinued, and she was started on lamotrigine 25 mg daily with plans to uptitrate. At [facility] 10/17/2022 evaluation she was noted to have a severe headache on 10/16 with tingling in the hands similar to prior. At that time she started on Trileptal the previous Tuesday, and was weaning Zonegran from 200-150. She was discharged and recommended to follow-up with [facility] neurology. Zonisamide was started to be weaned due to hx of kidney stones, no topamax Migraines have failed Imitrex, Maxalt, Nurtec in the past. Lamictal/Keppra with limited benefit in the past, keppra limited by mood/psych comorbidity Pt Also w/ hx of migraines improved on Aimovig, improved from 1215 down to about 5/month. Nurtec did not help triptans have not produced benefit. Past resting tremor with Abilify, this was noted to be tapered down from 30 mg but her depression worsened so she was continued 30 mg. MRI 05/2022: : There are no areas of restricted diffusion to suggest acute infarction. The midline structures are intact. Small fluid levels within the maxillary sinuses. The mastoid air cells are clear. The ventricles and sulci are within normal limits for age. There is no mass, hematoma, midline shift. The major vascular flow-voids at the skull base are well maintained. Postcontrast sequences show no areas of abnormal enhancement. The temporal lobes are symmetric. No evidence for cartwright matter heterotopia. She is seen in the ER with her parents present. She was in [place] last week for breakthrough seizures. After returning home had 5 seizures in a row, 2 in the ambulance, and 2 in th eER at [place]. While in [place] they recommended that she did not reduce the Zonegran, and to slowly increase lamictal. Does not have any abortive medications at home. Seizures last 3-4 minutes. She also has a lot of anxiety after seizures. She has not had chest pain, chest pressure, shortness of breath, or difficulty breathing although sometimes she feels that her anxiety makes her breathing feel different. She denies prior lung/cardiac issues. Her sister had a blood clot while on oral contraceptive pill, John is currently on a progestin only pill and has never had a blood clot. She does not have inspiratory pain. She does endorse 1 week of feeling poorly with occasional chills. L flank pain 3-4 weeks. +dysuria on and off for 3- 4weeks. She has had trouble going to the bathroom (frequency and urgency with low volume voids). Per Family: Taking trileptal 150am / 300pm, was to stop but wanted to discuss with [facility] first Lamical not taking, has script but not taken 25mg yet Zonegram is taking 100mg BID, was supposed to go to 50 but held at 100mg BID due to seizures She is still taking vimpat 200mg BID For psycyh she is taking effexor 150mg XR BID, aripiprazole 30mg daily, mirtazepine 15mg HS Medical History: Reviewed Medications: Reviewed Surgical History: Reviewed Family history: Reviewed Allergies: Reviewed Social History: Reviewed Code Status: Full Allergies Allergy/AdvReac Type Severity Reaction Status Date / Time promethazine AdvReac Severe CAUSED Verified 10/18/22 15:00 SEIZURE gabapentin AdvReac Intermediate confusion Verified 10/18/22 15:00 gluten AdvReac Intermediate VOMITING Verified 10/18/22 15:00 prednisone AdvReac Intermediate flushing Verified 10/18/22 15:00 and dizziness Home Medications Medication Instructions Recorded Confirmed Type folic acid 1 mg tablet 1 mg PO QAM 12/04/19 10/18/22 History ondansetron 8 mg disintegrating 8 mg PO Q8H PRN Nausea 12/04/19 10/18/22 History tablet riboflavin (vitamin B2) 100 mg 100 mg PO DAILY 01/16/20 10/18/22 History tablet (Vitamin B-2) venlafaxine 150 mg 150 mg PO DIRECTED 02/01/20 10/18/22 History capsule,extended release 24 hr (Effexor XR) aripiprazole 30 mg tablet 30 mg PO QPM 04/02/22 10/18/22 History erenumab-aooe 140 mg/mL 140 mg subcut MONTHLY 04/02/22 10/18/22 History subcutaneous auto-injector norethindrone (contraceptive) 0.35 0.35 mg PO DAILY 04/02/22 10/18/22 History mg tablet (Amy) trazodone 100 mg tablet 100 mg PO HS 04/02/22 10/18/22 History Saccharomyces boulardii 250 mg 250 mg PO DAILY 10/18/22 10/18/22 History capsule (Florastor) acetaminophen 500 mg tablet 1,000 mg PO Q6H PRN Pain 10/18/22 10/18/22 History (Tylenol Extra Strength) albuterol sulfate 90 mcg/actuation 2 inh inhalation Q4H PRN Shortness 10/18/22 10/18/22 History breath activated powder inhaler Of Breath Or Wheezing (ProAir RespiClick) budesonide-formoterol HFA 160 2 puff inhalation BID 10/18/22 10/18/22 History mcg-4.5 mcg/actuation aerosol inhaler (Symbicort) cyanocobalamin (vitamin B-12) 100 100 mcg PO DAILY 10/18/22 10/18/22 History mcg tablet (Vitamin B-12) diclofenac sodium 1 % topical gel 4 g topical QID PRN LOWER BACK PAIN 10/18/22 10/18/22 History hydroxyzine HCl 25 mg tablet 25 mg PO TID PRN Anxiety 10/18/22 10/18/22 History ibuprofen 600 mg tablet 600 mg PO Q6H PRN Pain 10/18/22 10/18/22 History lansoprazole 30 mg capsule,delayed 30 mg PO DAILY 10/18/22 10/18/22 History release (Prevacid) linaclotide 290 mcg capsule 290 mcg PO QAM 10/18/22 10/18/22 History (Linzess) magnesium gluconate 27 mg 27 mg PO DAILY 10/18/22 10/18/22 History magnesium (500 mg) tablet mirtazapine 15 mg tablet (Remeron) 15 mg PO HS 10/18/22 10/18/22 History oxcarbazepine 150 mg tablet 150 mg PO DIRECTED 10/18/22 10/18/22 History (Trileptal) vit no.95-ferrous 1 tab PO DAILY 10/18/22 10/18/22 History fumarate 28 mg-folic acid 800 mcg tablet () sennosides 8.6 mg tablet (senna) 17.2 mg PO DAILY PRN Constipation 10/18/22 10/18/22 History zonisamide 100 mg capsule 100 mg PO DIRECTED 10/18/22 10/18/22 History zonisamide 50 mg capsule 50 mg PO DIRECTED 10/18/22 10/18/22 History Past Med/Surg History Medical History Estevez's esophagus Bipolar 1 disorder Epilepsy GERD (gastroesophageal reflux disease) Migraine headache Other cervical disc displacement, high cervical region Restless leg syndrome Thyrotoxicosis NOS w/o crisis Surgical History H/O colonoscopy H/O esophagogastroduodenoscopy H/O toe surgery S/P cholecystectomy S/P ear surgery S/P tonsillectomy and adenoidectomy Family History Grandmother (Maternal) Heart disease Father Diabetes Heart disease Brother Migraine headache Grandmother (Paternal) Heart disease Social History Smoking Status: Unknown if ever smoked Age Quit Using Tobacco: 28; Cigarettes Per Day: one pack per day; Second Hand Exposure: No; Do You Dip or Chew Tobacco: No; Hx Alcohol Use: No Hx Substance Use: No Preferred Language: Setswana Drilling Inspector Required: No Current Living Situation: Family current occupational status: disabled other: also security disability for the last 2 years because of multiple medical Feels Safe at Home: Yes Assistive Devices: None Review of Systems Review of Systems: All systems reviewed & are unremarkable except as noted in HPI & below Physical Exam Physical Exam: General:Alert and oriented to name, place, and year. Answers questions appropriately and follows commands. No acute distress. No dysarthria. Neuro: Visual power full. Pupils equal and reactive to light. Extraocular mo vements intact. No diplopia. Hearing intact. Tongue protrudes midline. Avionics Mechanic strength 5/5 bilaterally, ankle dorsiflexion/plantarflexion 5/5 with intact sensation of soft touch in the hands and feet and no asymmetry. No strength asymmetry. Dyskinesia of the tongue/lips is present. Pulm: CTAB A&P. -wheezes, -rales, -rhonchi. Symmetrical chest rise. No increased work of breathing. No respiratory distress. Cardiac: RRR, -mrg. Radial pulses intact and symmetrical. Abdominal: Nontender, nondistended, soft. BS present. Results & Data Results & Data Vital Signs (Past 12 Hours) Vital Signs Temp Pulse Resp BP Pulse Ox 10/18/22 14:40 120 H 31 H 91 10/18/22 14:30 119 H 18 98 10/18/22 14:30 101/73 10/18/22 14:27 125 H 21 97 10/18/22 14:27 116/85 10/18/22 14:20 20 96 10/18/22 14:11 119 H 20 95 10/18/22 13:50 122 H 26 H 10/18/22 13:40 120 H 31 H 100 10/18/22 13:30 123 H 24 100 10/18/22 13:24 133 H 99 10/18/22 13:08 38.1 C H 120 H 24 10/18/22 13:25 137 H PG Care Time/CCT Total # of Minutes Spent Total Time Spent with Patient: Total time spent is greater than 50% in coordination of care (as documented) at patient's floor/unit and/or counseling patient: Coding Level of Care Code 66666 INT INP/OBS CARE 3/75MIN Diagnoses Seizure disorder G40.909 Bipolar 1 disorder F31.9 Dysuria R30.0 History of nephrolithiasis Z87.442 MONIQUE (generalized anxiety disorder) F41.1 Fibromyalgia M79.7 GERD (gastroesophageal reflux disease) K21.9 Headache R51
[2022-10-18 17:12] LABS: Adenovirus PCR Not Detected (NotDetected); Bordetella parapertussis PCR Not Detected (NotDetected); Bordetella pertussis PCR Not Detected (NotDetected); Chlamydia pneumoniae PCR Not Detected (NotDetected); Coronavirus 229E PCR Not Detected (NotDetected); Coronavirus CoV-2 (COVID19)PCR Not Detected (NotDetected); Coronavirus HKU1 PCR Not Detected (NotDetected); Coronavirus NL63 PCR Not Detected (NotDetected); Coronavirus OC43PCR Not Detected (NotDetected); Human Metapneumovirus PCR Not Detected (NotDetected); Influenza A PCR Not Detected (NotDetected); Influenza B PCR Not Detected (NotDetected); Mycoplasma pneumoniae PCR Not Detected (NotDetected); Parainfluenza Virus 1 PCR Not Detected (NotDetected); Parainfluenza Virus 2 PCR Not Detected (NotDetected); Parainfluenza Virus 3 PCR Not Detected (NotDetected); Parainfluenza Virus 4 PCR Not Detected (NotDetected); Respiratory Syncytial VirusPCR Not Detected (NotDetected); Rhinovirus/Enterovirus PCR Not Detected (NotDetected)
[2022-10-18] MEDS ORDERED: SENNA 8.6 MG TAB PO PRN (18:31)
[2022-10-18] MEDS ORDERED: ALBUTEROL HFA 8 GM INHALER INH PRN (18:36)
[2022-10-18 18:58] LABS: Appearance Urine Clear (Clear); Bacteria Urine Automated Negative (Negative); Bilirubin Urine Negative (Negative); Blood Urine Negative (Negative); Cast Urine Automated 0 /lpf (0-5); Color Urine Yellow; Epithelial Cell Urine Auto 20-30 /lpf (0-5); Glucose Urine UA Negative (Negative); Ketones Urine Negative (Negative); Leukocyte Esterase Urine Trace (Negative); Nitrite Urine Negative (Negative); Protein Urine Negative (Negative); RBC Urine Automated 0-4 /hpf (0-4); Specific Gravity Urine 1.013 (1.000-1.030); Urobilinogen Urine Negative (Negative)
[2022-10-18] MEDS: VENLAFAXINE HCL XR 150 MG CAPXR PO SCH (20:19)
[2022-10-18] MEDS: traZODone HCL 50 MG TAB PO SCH (20:28)
[2022-10-18] MEDS: LACOSAMIDE 50 MG TABLET PO SCH (20:30)
[2022-10-18] MEDS: ZONISAMIDE 100 MG CAPSULE PO SCH (20:30)
[2022-10-18] MEDS: MIRTAZAPINE TAB 15 MG TAB PO SCH (20:30)
[2022-10-18] MEDS: OXcarbazepine 150 MG TABLET PO SCH (20:31)
[2022-10-18] MEDS: ARIPiprazole 15 MG TAB PO SCH (20:31)
[2022-10-18] MEDS: lamoTRIgine 25 MG TAB PO SCH (20:31)
[2022-10-18] MEDS: ONDANSETRON 8MG OD TAB PO PRN (20:52)
[2022-10-18] MEDS: KETOROLAC TROMETHAMINE 15 MG/ML VIAL IV PRN (20:55)
[2022-10-18] MEDS: ACETAMINOPHEN 500 MG TAB PO PRN (23:29)
[2022-10-18] MEDS ORDERED: MoRPHine SULFATE 2 MG/ML CARP IV STA (23:36)
[2022-10-19] MEDS: KETOROLAC TROMETHAMINE 15 MG/ML VIAL IV PRN ×2 (03:12→09:45)
[2022-10-19] MEDS ORDERED: SUMAtriptan succinate 50 MG TAB PO STA (05:06)
--- NOTE | 2022-10-19 08:51 | Neurology Consultation ---
Date of Consultation October 19, 2022 Assessment & Plan (1) Epilepsy: (2) Migraine headache: (3) Tremor: (4) Left flank pain: (5) Bipolar 1 disorder: Plan Patient has a longstanding history of epilepsy with true seizures and pseudoseizures ( non epileptogenic events). She has been on multiple medications and has been difficult to keep her seizure-free. The patient also has a history of migraine headaches improve some on Aimovig but still has breakthrough headaches. patient has a significant mood issues with anxiety, depression, and bipolar 1 disorder. Unfortunately she is on a rather large dose of Abilify but also is on mirtazapine, venlafaxine, and trazodone. All of these medications can lower the seizure threshold and make it easier for her to have seizures. In addition, she has tremor which is likely secondary to the Abilify. There is no parkinsonism present ( no rest tremor, rigidity, bradykinesia) but she does have some mild dyskinesia ( lip smacking and movements) which is likely a tardive dyskinesia. The patient has some left-sided pain likely stemming from her lower ribs ( from a fall during a seizure). Overall she has been on a number of different medicines and there is confusion as to what she should be also on. She has nephrolithiasis and it is supposed to be tapering off zonisamide. Recommendations: 1. lamotrigine 25 mg twice a day for 1 week then increase to 50 mg twice a day. 2. I agree with the lower dose of lacosamide and stay at 100 mg twice a day. 3. for now, keep zonisamide at 100 mg twice a day, but this could be lowered further as an outpatient. 4. continue oxcarbazepine 300 mg twice daily. We will follow levels and titrate this up to a therapeutic level. I think this is a much better medication for her than lacosamide and should help her bipolar disorder as well. 5. If possible, we could decrease Abilify but I will not change any of her psychiatric medications during this hospitalization ( defer to Psychiatry). 6. treat headache as you are doing with as needed medication for now. Continue with monthly Aimovig. 7. I could consider Depakote which would be an excellent medication for her seizures and mood, however, it would likely increase her tremor. 8. Avoid Keppra (although it could be used in acute settings, temporarily giving IV doses). She had side effects on oral levetiracetam. Also, avoid topiramate as this could lead to increased nephrolithiasis. 9. Increase activity as able. 10. I will follow as an outpatient. Overall, I spent a total of 75 minutes with this case including review of records, review of CT and MRI films, report generation, direct evaluation patient at bedside, and discussing the case with the patient and RN at bedside as well as Dr. Rosen, including differential diagnosis and treatment options History of Present Illness Reason for Consultation: Patient is a 37-year-old, who I was asked to see the request of Dr. Bruce, her neurologic consultation regarding epilepsy and other issues Requesting Physician: Dr. Bruce Attending Physician: Fabian Rosen MD History of Present Illness patient is well known to me having seen her for many years with history of epilepsy, pseudoseizures, anxiety / depression / bipolar disorder, migraines, and other issues. Over the years she has tried multiple different anticonvulsants and has been evaluated multiple times at [facility] facilities. She has had multiple EEGs and stays in [facility] and has been diagnosed with generalized tonic- clonic seizures as well as non epileptogenic events. She has had bifrontal and bitemporal spikes and more recently in 2020 right cerebral slowing with spikes on prolonged monitoring. She has tried multiple medicines in the past and Keppra gave her side effects. Gabapentin did not help and Lamictal did not help but I am uncertain as to the previous dose. More recently she has been fairly well controlled on Vimpat, zonisamide, and Trileptal. Unfortunately she has nephrolithiasis and the desire is for her to be off zonisamide. She was admitted to [facility] this past weekend with multiple seizures and saw Dr. Perdomo. She recommended tapering zonisamide, starting lamotrigine, and decreasing Trileptal ( because Vimpat and Trileptal have similar mechanisms of actions ). The patient did not make any adjustments, however, and ended up being admitted to [facility] October 18. She came to the emergency room with continued left sided abdominal/ flank pain, headaches, and had multiple seizures. temperature was 38.1 pulse 120. Respiratory rate was 24 and O2 saturation was 97%. Blood pressure was 116/80. She was fairly awake and alert and answering questions appropriately. There were no focal neurologic findings or meningeal signs. CT scan of the head was unremarkable. CT angiography of the head and neck were normal and showed no vascular anomalies or stenoses. Chest x-ray was unremarkable. I reviewed these films. CBC and Chem profile were normal although glucose was 121. Alk-phos was 206 but the rest of the liver profile was. Urinalysis was unremarkable and a biofire showed no obvious infection. The patient did have an MRI of the brain in May of 2022. It was fairly unremarkable with no acute or chronic abnormalities with without contrast. I reviewed these films. Nursing reports no seizure activity since admission or overnight. She was having some headaches and left-sided flank pain receiving some pain medication. This morning, the patient complains of a left occipital headache a pounding/ sharp nature. She has nausea but no vomiting or photophobia. she tells me she has been having migraine headaches more recently and averages 4- 5 a month on Aimovig ( much more frequent before this was initiated ). She feels a little bit lightheaded /dizzy and she feels anxious. Allergies Allergy/AdvReac Type Severity Reaction Status Date / Time promethazine AdvReac Severe CAUSED Verified 10/18/22 15:00 SEIZURE gabapentin AdvReac Intermediate confusion Verified 10/18/22 15:00 gluten AdvReac Intermediate VOMITING Verified 10/18/22 15:00 prednisone AdvReac Intermediate flushing Verified 10/18/22 15:00 and dizziness Home Medications Medication Instructions Recorded Confirmed Type folic acid 1 mg tablet 1 mg PO QAM 12/04/19 10/18/22 History ondansetron 8 mg disintegrating 8 mg PO Q8H PRN Nausea 12/04/19 10/18/22 History tablet riboflavin (vitamin B2) 100 mg 100 mg PO DAILY 01/16/20 10/18/22 History tablet (Vitamin B-2) venlafaxine 150 mg 150 mg PO DIRECTED 02/01/20 10/18/22 History capsule,extended release 24 hr (Effexor XR) aripiprazole 30 mg tablet 30 mg PO QPM 04/02/22 10/18/22 History erenumab-aooe 140 mg/mL 140 mg subcut MONTHLY 04/02/22 10/18/22 History subcutaneous auto-injector norethindrone (contraceptive) 0.35 0.35 mg PO DAILY 04/02/22 10/18/22 History mg tablet (Amy) trazodone 100 mg tablet 100 mg PO HS 04/02/22 10/18/22 History Saccharomyces boulardii 250 mg 250 mg PO DAILY 10/18/22 10/18/22 History capsule (Florastor) acetaminophen 500 mg tablet 1,000 mg PO Q6H PRN Pain 10/18/22 10/18/22 History (Tylenol Extra Strength) albuterol sulfate 90 mcg/actuation 2 inh inhalation Q4H PRN Shortness 10/18/22 10/18/22 History breath activated powder inhaler Of Breath Or Wheezing (ProAir RespiClick) budesonide-formoterol HFA 160 2 puff inhalation BID 10/18/22 10/18/22 History mcg-4.5 mcg/actuation aerosol inhaler (Symbicort) cyanocobalamin (vitamin B-12) 100 100 mcg PO DAILY 10/18/22 10/18/22 History mcg tablet (Vitamin B-12) diclofenac sodium 1 % topical gel 4 g topical QID PRN LOWER BACK PAIN 10/18/22 10/18/22 History hydroxyzine HCl 25 mg tablet 25 mg PO TID PRN Anxiety 10/18/22 10/18/22 History ibuprofen 600 mg tablet 600 mg PO Q6H PRN Pain 10/18/22 10/18/22 History lansoprazole 30 mg capsule,delayed 30 mg PO DAILY 10/18/22 10/18/22 History release (Prevacid) linaclotide 290 mcg capsule 290 mcg PO QAM 10/18/22 10/18/22 History (Linzess) magnesium gluconate 27 mg 27 mg PO DAILY 10/18/22 10/18/22 History magnesium (500 mg) tablet mirtazapine 15 mg tablet (Remeron) 15 mg PO HS 10/18/22 10/18/22 History oxcarbazepine 150 mg tablet 150 mg PO DIRECTED 10/18/22 10/18/22 History (Trileptal) vit no.95-ferrous 1 tab PO DAILY 10/18/22 10/18/22 History fumarate 28 mg-folic acid 800 mcg tablet () sennosides 8.6 mg tablet (senna) 17.2 mg PO DAILY PRN Constipation 10/18/22 10/18/22 History zonisamide 100 mg capsule 100 mg PO DIRECTED 10/18/22 10/18/22 History zonisamide 50 mg capsule 50 mg PO DIRECTED 10/18/22 10/18/22 History Patient History Medical History Estevez's esophagus Bipolar 1 disorder Epilepsy GERD (gastroesophageal reflux disease) Migraine headache Other cervical disc displacement, high cervical region Restless leg syndrome Thyrotoxicosis NOS w/o crisis Surgical History H/O colonoscopy H/O esophagogastroduodenoscopy H/O toe surgery S/P cholecystectomy S/P ear surgery S/P tonsillectomy and adenoidectomy Family History Grandmother (Maternal) Heart disease Father Diabetes Heart disease Brother Migraine headache Grandmother (Paternal) Heart disease Social History Smoking Status: Former smoker Age Quit Using Tobacco: 28; Cigarettes Per Day: one pack per day; Second Hand Exposure: No; Do You Dip or Chew Tobacco: No; Tobacco Cessation Education Requested by Patient: No Hx Alcohol Use: Yes Alcohol type: beer, wine and hard liquor Hx Substance Use: No Preferred Language: Mosotho Communication Ability: Effective [employer] Scientist Required: No Beliefs That Will Affect Care: None Current Living Situation: Parent and Family Current Living Situation Comment: LIVES WITH PARENTS current occupational status: disabled Other Information That Helps Us Care for You: No other: also security disability for the last 2 years because of multiple medical Feels Safe at Home: Yes Safety Concerns: Feels Safe At This Time Assistive Devices: Hearing Aid - Bilateral Assistive Devices Comment: HEARING AIDS NOT HERE Review of Systems Constitutional: + fatigue; no fever and no weakness Eyes: no diplopia, no eye pain and no worsening vision Ear, Nose, Mouth, Throat: no ear pain, no tinnitus, no hearing loss, no dizziness, no snoring, no hoarseness and no dysphagia Respiratory: no cough and no dyspnea Cardiovascular: no chest pain, no palpitations and no lightheadedness Gastrointestinal: no abdominal pain, no nausea and no vomiting Genitourinary: no dysuria, no urinary frequency and no urinary incontinence Musculoskeletal: + back pain and + neck pain; no radicular pain, no joint pain and no myalgia Integumentary: no rash and no lesions Neurologic: + headache(s); no gait abnormality, no localized weakness, no generalized weakness, no tingling, no numbness, no tremor(s), no abnormal movements, no abnormal speech, no confusion and no memory loss Psychiatric: + anxiety; no depression, no irritability, no difficulty concentrating, no confusion and no hallucinations Endocrine: no fatigue and no flushing Hematologic / Lymphatic: no easy bleeding and no easy bruising Allergy / Immunological: no urticaria and no problem reported Exam (Neuro) Physical Exam: The patient is left-handed. The patient is awake, alert, and attentive. Speech is without any aphasia or dysarthria. The patient can name objects, repeat phrases, and has normal spontaneous speech. Mentation and thought processes are intact, with orientation to person, place and time, and Reasonable fund of knowledge. Attention and concentration are normal. Mood and affect are normal and appropriate. General appearance and grooming are normal. Short and long-term memory are impaired some but reasonable to conversation Pupils are 4 mm bilaterally and reactive to light. Extraocular eye muscles are intact without nystagmus. Visual acuity and visual power seem normal grossly to confrontation. There are no deficits to sensation in the face in all 3 distributions of the fifth cranial nerve bilaterally. Corneal reflexes are positive bilaterally. Facial strength and symmetry was normal bilaterally. Hearing seems normal bilaterally. Palate moves well without asymmetry. There is normal sternocleidomastoid and trapezius (shoulder shrug) strength bilaterally. Tongue is midline with good strength bilaterally. patient has no teeth Patient has some dyskinesia of the lips of the very mild nature. Neck has a full range of motion without discomfort. There are no cervical bruits bilaterally. There are no cranial or ocular bruits. Heart is without murmur. There is a regular rhythm and rate. Cervical, thoracic, and lumbar spine are nonspecifically mildly tender to palpation. In addition she has some left side pain which is tender to palpation over the last ribs without any deformities. There are no visible montiel. Gait is Not tested due to the dizziness but stance sitting with feet dangling is quite normal. With outstretched arms there is no drift. There are no resting tremors. There is mild action and postural tremor bilaterally. There is no ataxia with finger to nose testing. There is good facility in the hands. No other abnormal involuntary movements are noted. Motor strength is 5/5 diffusely in the arms bilaterally including deltoids, biceps, triceps, brachioradialis, wrist flexors and extensors, solution make up operator, and intrinsic hand muscles. Motor strength is 5/5 diffusely in the legs bilaterally including hip flexors, quadriceps, hamstrings, gastrocnemius, tibialis anterior, tibialis posterior, and Peroneii muscles. Toe extensors are normal and there is good bulk in the extensor digitorum brevis muscles bilaterally. The limbs have good tone without rigidity or spasticity. There is no atrophy noted in the muscles. Muscle bulk is normal, there is no tenderness to palpation, no myotonia to percussion, and no fasciculations seen. Sensory examination is intact to touch and pin throughout all 4 limbs diffusely. Reflexes are 2/4 in the biceps, triceps, brachioradialis, and quadriceps tendons bilaterally. the right Achilles tendon reflexes 2/4 and the left is absent. There is no clonus bilaterally. Toes are downgoing with plantar stimulation bilaterally. Peripheral pulses are present and of normal quality distally in all 4 limbs. There is no peripheral edema noted in the limbs. Results & Data Vital Signs (Past 12 Hours) Vital Signs Temp Pulse Pulse Resp BP Pulse Ox O2 Del Method 10/19/22 08:00 36.9 C 109 H 16 120/85 96 Room Air 10/19/22 03:18 36.3 C L 87 16 100/67 95 Room Air 10/19/22 00:00 106 H 10/18/22 23:41 36.9 C 117 H 20 115/78 99 Room Air PG Care Time/CCT Total # of Minutes Spent Total Time Spent with Patient: Total time spent is greater than 50% in coordination of care (as documented) at patient's floor/unit and/or counseling patient: Coding Level of Care Code 73830 INT INP/OBS CARE 3/75MIN Diagnoses Epilepsy G40.909 Migraine headache G43.909 Tremor R25.1 Left flank pain R10.9 Bipolar 1 disorder F31.9
[2022-10-19] MEDS ORDERED: PANTOprazole 40 MG TAB PO SCH (09:00)
[2022-10-19] MEDS: ZONISAMIDE 100 MG CAPSULE PO SCH ×2 (09:45→22:11)
[2022-10-19] MEDS: FLUTICASONE/VILANTEROL 100/25MCG 14 PUFFS/INHALER INH SCH (09:45)
[2022-10-19] MEDS: LACOSAMIDE 50 MG TABLET PO SCH ×2 (09:45→22:30)
[2022-10-19] MEDS: lamoTRIgine 25 MG TAB PO SCH ×2 (09:45→22:11)
[2022-10-19] MEDS: SACCHAROMYCES BOULARDII 250 MG CAP PO SCH (09:45)
[2022-10-19] MEDS: OXcarbazepine 150 MG TABLET PO SCH ×2 (09:45→22:11)
[2022-10-19] MEDS: CYANOCOBALAMIN (B-12) 100 MCG TABLET PO SCH (09:45)
[2022-10-19] MEDS: FOLIC ACID 1 MG TAB PO SCH (09:45)
[2022-10-19] MEDS: VENLAFAXINE HCL XR 150 MG CAPXR PO SCH ×2 (09:45→16:51)
[2022-10-19] MEDS: PANTOprazole 40 MG TAB PO SCH (09:46)
--- NOTE | 2022-10-19 13:19 | Hospitalist Progress Note ---
Date of Service October 19, 2022 Assessment & Plan (1) Seizure disorder: Plan: Multiple Seizures CThead unremarkable Lactate of 7.5 on admission consistent with recurrent seizures, normalized on recheck at time of admission Neurology on board On medications as recommended by neurology Seizure precautions Monitor for any breakthrough seizures on the current regimen (2) Bipolar 1 disorder: Plan: Bipolar 1 disorder, generalized anxiety - Will continue trazodone, aripiprazole, mirtazepine, and effexor for underlying mood disorder. Trazodone dose decreased. These can contribute to seizure. Psych consulted for assistance with med management and possible reductions. Dyskinesia of the tongue/lips is noted, mild. No extremity tremor on admitting exam. (3) Dysuria: Plan: Dysuria Patient reports 2 to 3 weeks of dysuria intermittently with urgency She does have history of kidney stones, ultrasound and CT scan this month did not show evidence of stone/obstructive uropathy UA negative for UTI 1 fever following seizure, no photosensitivity/nuchal rigidity. Fever curve trended. Blood cultures are pending (4) History of nephrolithiasis: Plan: History of nephrolithiasis Recent left flank pain/dysuria Renal ultrasound 10/[address] scan 10/16/2022: No urolithiasis, obstructive uropathy noted. No hydro. Normal bladder. No acute findings of abdomen or pelvis - No leukocytosis Hemoglobin normal Sodium normal Potassium normal CO2 17, anion gap 16 with elevated lactate, creatinine 0.84 Magnesium 2.0 Phosphorus normal Alk phos chronically elevated, down trended to 206 from prior Procalcitonin negative (5) MONIQUE (generalized anxiety disorder): Plan: as noted (6) Fibromyalgia: (7) GERD (gastroesophageal reflux disease): Plan: GERD/hx barrets PPI converted to Protonix while inpatient (8) Headache: Plan: Migraine - On erenumab monthly Patient does endorse a headache slightly different from her normal migraines on arrival, these are present with tenderness on the occiput suspect due to recurrent seizure activity No nuchal rigidity or photosensitivity Continue Tylenol, Toradol Patient has had minimal benefit with triptans in the past Plan If seizure-free, may discharge on current seizure medications. Pending psych evaluation Admission and Anticipated Discharge Date Admission Date: October 18, 2022 Subjective Patient feels well. Denies chest pain or shortness of breath. No seizure overnight Review of Systems Review of Systems: Unobtainable due to cognitive status Physical Exam Physical Exam: General: Awake, conversant Heart: S1, S2/regular rate and rhythm, no murmur rubs or gallops Lungs: Clear to auscultation bilaterally. Normal effort Abdomen: Soft/nontender/nondistended. No hepatosplenomegaly Extremities: No clubbing/cyanosis. No edema Behavior: Appropriate, cooperative Results & Data Results & Data Vital Signs (Past 12 Hours) Vital Signs Temp Pulse Resp BP Pulse Ox O2 Del Method 10/19/22 11:59 36.7 C 102 H 16 118/76 93 Room Air 10/19/22 08:00 36.9 C 109 H 16 120/85 96 Room Air 10/19/22 03:18 36.3 C L 87 16 100/67 95 Room Air PG Care Time/CCT Total # of Minutes Spent Total Time Spent with Patient: Total time spent is greater than 50% in coordination of care (as documented) at patient's floor/unit and/or counseling patient: Coding Level of Care Code 14890 SUB INP/OBS CARE 2/35MIN Diagnoses Seizure disorder G40.909 Bipolar 1 disorder F31.9 Dysuria R30.0 History of nephrolithiasis Z87.442 MONIQUE (generalized anxiety disorder) F41.1 Fibromyalgia M79.7 GERD (gastroesophageal reflux disease) K21.9 Headache R51
[2022-10-19] MEDS: hydrOXYzine HCl 25 MG TAB PO PRN (13:38)
[2022-10-19] MEDS: ONDANSETRON 8MG OD TAB PO PRN (13:38)
[2022-10-19] MEDS ORDERED: METOCLOPRAMIDE HCL INJ 5 MG/ML 2 ML VIAL IV ONE (13:48)
--- NOTE | 2022-10-19 18:29 | Psychiatric Consultation ---
Date of Consultation October 19, 2022 Impression / Recommendations Impression 37 y/o F with long history of bipolar disorder and seizures. I think we're almost certainly seeing her at a moment when her mood symptoms are not prominent, which could indicate that medications are appropriate or that seizures have ameliorated mood symptoms. While the venlafaxine and aripiprazole can certainly lower seizure threshold, I'm concerned that her mood may worsen if either is decreased or eliminated. (1) Bipolar 1 disorder: Plan I strongly agree with Dr. Crowe's anticonvulsant recommendations regarding lamotrigine and oxcarbazepine, since once those are at therapeutic levels there is an improved chance of being able to reduce other medications such as aripiprazole. I think it would likely be best to use a single sedating antidepressant for sleep at night rather than two. Selecting which one might better be done by someone familiar with the course of her illness and the reasons she ended up on both mirtazapine and trazodone (her current prescriber, for example). If it's felt that this must be done during this stay, I'd recommend eliminating the mirtazapine, though this would likely necessitate a dose increase of trazodone. Maintain current venlafaxine XR and aripiprazole doses unchanged. Psych History Identifying Data HIREN CASTILLO is a 37-year-old F with a history of bipolar I disorder, admitted on [] for seizures. Consult is by the hospitalist service for "BP1, med reduction due to seizures". Chief Complaint "I had a bunch of seizures". History of Present Illness 37 y/o F admitted after a period of cryptogenic breakthrough seizures. She has a history of documented epileptic and well as nonepileptic seizures, which makes it even more challenging to sort this out. She is on multiple psychiatric medications, including high-dose aripiprazole 30 mg daily as well as multiple antidepressants. Two of the antidepressants, mirtazapine 15 mg QHS and trazodone 100 mg QHS, are almost certainly intended solely for sleep (though they wouldn't typically be used together). She's also on venlafaxine XR at a 150 mg/day dose, which is below an average adult dose closer to 225 mg/day. This medication is used for generalized anxiety disorder and other anxiety disorders as well as for depression. Pt is able to give me an internally-consistent history of her psychiatric medication use that essentially supports her current doses. She's been on venlafaxine XR for "years and years", primarily at a 150 mg/day dose. She says for a time she took 150 mg BID "but they said that 150 mg was the max" (apparently ignoring the existence of the 225 mg tablet) and it was reduced to 150 mg/day "about 3 years ago". She says aripiprazole was increased from 20 mg "4 or so months ago" "because it didn't seem to be working". However, she' s unable to say for what particular symptoms it was seen as insufficiently effective or whether any improvement can be attributed to the increase. I've reviewed the neurology consultation note, which is very helpful not least because Dr. Crowe is 's outpatient neurologist. Past Psychiatric History Previous Psych Admissions: denies History of Previous Suicide Attempt: Yes Describe Attempts in the Past: "took a handful of Tylenol" as an adolescent Allergies Allergy/AdvReac Type Severity Reaction Status Date / Time promethazine AdvReac Severe CAUSED Verified 10/18/22 15:00 SEIZURE gabapentin AdvReac Intermediate confusion Verified 10/18/22 15:00 gluten AdvReac Intermediate VOMITING Verified 10/18/22 15:00 prednisone AdvReac Intermediate flushing Verified 10/18/22 15:00 and dizziness Home Medications Medication Instructions Recorded Confirmed Type folic acid 1 mg tablet 1 mg PO QAM 12/04/19 10/18/22 History ondansetron 8 mg disintegrating 8 mg PO Q8H PRN Nausea 12/04/19 10/18/22 History tablet riboflavin (vitamin B2) 100 mg 100 mg PO DAILY 01/16/20 10/18/22 History tablet (Vitamin B-2) venlafaxine 150 mg 150 mg PO DIRECTED 02/01/20 10/18/22 History capsule,extended release 24 hr (Effexor XR) aripiprazole 30 mg tablet 30 mg PO QPM 04/02/22 10/18/22 History erenumab-aooe 140 mg/mL 140 mg subcut MONTHLY 04/02/22 10/18/22 History subcutaneous auto-injector norethindrone (contraceptive) 0.35 0.35 mg PO DAILY 04/02/22 10/18/22 History mg tablet (Amy) trazodone 100 mg tablet 100 mg PO HS 04/02/22 10/18/22 History Saccharomyces boulardii 250 mg 250 mg PO DAILY 10/18/22 10/18/22 History capsule (Florastor) acetaminophen 500 mg tablet 1,000 mg PO Q6H PRN Pain 10/18/22 10/18/22 History (Tylenol Extra Strength) albuterol sulfate 90 mcg/actuation 2 inh inhalation Q4H PRN Shortness 10/18/22 10/18/22 History breath activated powder inhaler Of Breath Or Wheezing (ProAir RespiClick) budesonide-formoterol HFA 160 2 puff inhalation BID 10/18/22 10/18/22 History mcg-4.5 mcg/actuation aerosol inhaler (Symbicort) cyanocobalamin (vitamin B-12) 100 100 mcg PO DAILY 10/18/22 10/18/22 History mcg tablet (Vitamin B-12) diclofenac sodium 1 % topical gel 4 g topical QID PRN LOWER BACK PAIN 10/18/22 10/18/22 History hydroxyzine HCl 25 mg tablet 25 mg PO TID PRN Anxiety 10/18/22 10/18/22 History ibuprofen 600 mg tablet 600 mg PO Q6H PRN Pain 10/18/22 10/18/22 History lansoprazole 30 mg capsule,delayed 30 mg PO DAILY 10/18/22 10/18/22 History release (Prevacid) linaclotide 290 mcg capsule 290 mcg PO QAM 10/18/22 10/18/22 History (Linzess) magnesium gluconate 27 mg 27 mg PO DAILY 10/18/22 10/18/22 History magnesium (500 mg) tablet mirtazapine 15 mg tablet (Remeron) 15 mg PO HS 10/18/22 10/18/22 History oxcarbazepine 150 mg tablet 150 mg PO DIRECTED 10/18/22 10/18/22 History (Trileptal) vit no.95-ferrous 1 tab PO DAILY 10/18/22 10/18/22 History fumarate 28 mg-folic acid 800 mcg tablet () sennosides 8.6 mg tablet (senna) 17.2 mg PO DAILY PRN Constipation 10/18/2210/05 History zonisamide 100 mg capsule 100 mg PO DIRECTED 10/18/22 10/18/22 History zonisamide 50 mg capsule 50 mg PO DIRECTED 10/18/22 10/18/22 History Patient History Medical History (Updated 10/19/22 @ 20:10 by Man Servin MD) Estevez's esophagus Bipolar 1 disorder By history Epilepsy GERD (gastroesophageal reflux disease) Migraine headache Other cervical disc displacement, high cervical region Restless leg syndrome Thyrotoxicosis NOS w/o crisis Surgical History H/O colonoscopy H/O esophagogastroduodenoscopy H/O toe surgery S/P cholecystectomy S/P ear surgery S/P tonsillectomy and adenoidectomy Family History Grandmother (Maternal) Heart disease Father Diabetes Heart disease Brother Migraine headache Grandmother (Paternal) Heart disease Social History Smoking Status: Former smoker Age Quit Using Tobacco: 28; Cigarettes Per Day: one pack per day; Second Hand Exposure: No; Do You Dip or Chew Tobacco: No; Tobacco Cessation Education Requested by Patient: No Hx Alcohol Use: Yes Alcohol type: beer, wine and hard liquor Hx Substance Use: No Preferred Language: Kittitian Communication Ability: Effective Repair Department Supervisor Required: No Beliefs That Will Affect Care: None Current Living Situation: Parent and Family Current Living Situation Comment: LIVES WITH PARENTS current occupational status: disabled Other Information That Helps Us Care for You: No other: also security disability for the last 2 years because of multiple medical Feels Safe at Home: Yes Safety Concerns: Feels Safe At This Time Assistive Devices: Hearing Aid - Bilateral Assistive Devices Comment: HEARING AIDS NOT HERE Physical Exam Psychiatric: Orientation: alert, oriented to person, oriented to place, oriented to time and cooperative Apperance: appropriately dressed and appropriately groomed Eye Contact: good eye contact Motor Behavior: no abnormal motor movements Speech: normal rate/rhythm/volume of speech Affect: euthymic affect euthymic mood somewhat vague at times and a bit overinclusive of circumstantial detail yet still managing not always to provide requested data Thought Content: reality based without delusions Suicidal Thoughts: denies suicidal thoughts, denies suicidal plan and denies suicidal intent Homicidal Thoughts: denies homicidal thoughts Hallucinations: no auditory hallucinations and no visual hallucinations Cognition: recent memory grossly intact, attention grossly intact and language grossly intact; + remote memory not intact (a bit vague, though not significantly impaired) Estimated Intelligence: average estimated intelligence Insight: + fair insight Judgment: + fair judgement Vital Signs (Past 24 Hours): Last Vital Signs Temp 37.1 C 10/19/22 15:49 Pulse 89 10/19/22 15:49 Resp 20 10/19/22 15:49 BP 106/72 10/19/22 15:49 Pulse Ox 95 10/19/22 15:49 O2 Del Method Room Air 10/19/22 15:49 Exam Statement: I've reviewed the ED note, hospitalist's H&P, and neurology consultation note Review of Systems Psychiatric: no problem reported Results & Data (PSY) Medications Administered Acetaminophen (Acetaminophen 500 Mg Tab) 1,000 mg PO Q6H PRN PRN Reason: Pain Stop: 11/17/22 18:30 Last Admin: 10/18/22 23:29 Dose: 1,000 mg Documented By: HANNAH Aripiprazole (Aripiprazole 15 Mg Tab) 30 mg PO QPM AMELIA Stop: 11/17/22 20:59 Last Admin: 10/18/22 20:31 Dose: 30 mg Documented By: HANNAH Cyanocobalamin (Cyanocobalamin (B-12) 100 Mcg Tablet) 100 mcg PO DAILY AMELIA Stop: 11/18/22 08:59 Last Admin: 10/19/22 09:45 Dose: 100 mcg Documented By: JEAN-PIERRE Fluticasone/Vilanterol (Fluticasone/Vilanterol 100/25mcg 14 Puffs/Inhaler) 1 puffs INH DAILY AMELIA Stop: 11/18/22 08:59 Last Admin: 10/19/22 09:45 Dose: 1 puffs Documented By: JEAN-PIERRE Folic Acid (Folic Acid 1 Mg Tab) 1 mg PO QAM AMELIA Stop: 11/18/22 08:59 Last Admin: 10/19/22 09:45 Dose: 1 mg Documented By: JEAN-PIERRE Hydroxyzine HCl (Hydroxyzine Hcl 25 Mg Tab) 25 mg PO TID PRN PRN Reason: Anxiety Stop: 11/17/22 18:30 Last Admin: 10/19/22 13:38 Dose: 25 mg Documented By: JEAN-PIERRE Ketorolac Tromethamine (Ketorolac Tromethamine 15 Mg/Ml Vial) 10 mg IV Q6H PRN PRN Reason: Pain Stop: 10/23/22 18:30 Last Admin: 10/19/22 09:45 Dose: 10 mg Documented By: JEAN-PIERRE Admin: 10/19/22 03:12 Dose: 10 mg Documented By: Admin: 10/18/22 20:55 Dose: 10 mg Documented By: HANNAH Lacosamide (Lacosamide 50 Mg Tablet) 100 mg PO BID [facility] Stop: 11/17/22 20:59 Last Admin: 10/19/22 09:45 Dose: 100 mg Documented By: JEAN-PIERRE Admin: 10/18/22 20:30 Dose: 100 mg Documented By: HANNAH Lamotrigine (Lamotrigine 25 Mg Tab) 25 mg PO BID [facility] Stop: 11/17/22 20:59 Last Admin: 10/19/22 09:45 Dose: 25 mg Documented By: JEAN-PIERRE Admin: 10/18/22 20:31 Dose: 25 mg Documented By: HANNAH Mirtazapine (Mirtazapine Tab 15 Mg Tab) 15 mg PO HS [facility] Stop: 11/17/22 20:59 Last Admin: 10/18/22 20:30 Dose: 15 mg Documented By: HANNAH Miscellaneous (Order Awaiting Action: Norethindrone (Contraceptive) [Amy] 0.35 Mg Tablet) 1 each N/A QS [facility] Stop: 11/18/22 00:00 Last Admin: 10/19/22 14:18 Dose: Not Given Documented By: JEAN-PIERRE Admin: 10/19/22 08:25 Dose: Not Given Documented By: JEAN-PIERRE Admin: 10/19/22 00:07 Dose: Not Given Documented By: HANNAH Ondansetron HCl (Ondansetron 8mg Od Tab) 8 mg PO Q8H PRN PRN Reason: Nausea Stop: 11/17/22 18:30 Last Admin: 10/19/22 13:38 Dose: 8 mg Documented By: JEAN-PIERRE Admin: 10/18/22 20:52 Dose: 8 mg Documented By: HANNAH Oxcarbazepine (Oxcarbazepine 150 Mg Tablet) 300 mg PO BID [facility] Stop: 11/17/22 20:59 Last Admin: 10/19/22 09:45 Dose: 300 mg Documented By: JEAN-PIERRE Admin: 10/18/22 20:31 Dose: 300 mg Documented By: HANNAH Pantoprazole Sodium (Pantoprazole 40 Mg Tab) 40 mg PO DAILY [facility] Stop: 11/18/22 08:59 Last Admin: 10/19/22 09:46 Dose: 40 mg Documented By: JEAN-PIERRE Saccharomyces Boulardii (Saccharomyces Boulardii 250 Mg Cap) 250 mg PO DAILY AMELIA Stop: 11/18/22 08:59 Last Admin: 10/19/22 09:45 Dose: 250 mg Documented By: JEAN-PIERRE Trazodone HCl (Trazodone Hcl 50 Mg Tab) 50 mg PO HS [facility] Stop: 11/17/22 20:59 Last Admin: 10/18/22 20:28 Dose: Not Given Documented By: HANNAH Venlafaxine HCl (Venlafaxine Hcl Xr 150 Mg Capxr) 150 mg PO BIDM [facility] Stop: 11/17/22 18:59 Last Admin: 10/19/22 16:51 Dose: 150 mg Documented By: JEAN-PIERRE Admin: 10/19/22 09:45 Dose: 150 mg Documented By: JEAN-PIERRE Admin: 10/18/22 20:19 Dose: Not Given Documented By: HANNAH Zonisamide (Zonisamide 100 Mg Capsule) 100 mg PO BID [facility] Stop: 11/17/22 20:59 Last Admin: 10/19/22 09:45 Dose: 100 mg Documented By: JEAN-PIERRE Admin: 10/18/22 20:30 Dose: 100 mg Documented By: HANNAH Coding Level of Care Code 60058 IN/OBS CONSULT LVL 4,60M Diagnoses Bipolar 1 disorder F31.9 Time Spent (min) 77
[2022-10-19] MEDS: ONDANSETRON INJ 2 MG/ML 2 ML VIAL IV PRN (22:03)
[2022-10-19] MEDS: traZODone HCL 50 MG TAB PO SCH (22:04)
[2022-10-19] MEDS: MIRTAZAPINE TAB 15 MG TAB PO SCH (22:11)
[2022-10-19] MEDS: ARIPiprazole 15 MG TAB PO SCH (22:11)
[2022-10-19] MEDS ORDERED: SUMAtriptan succinate 6 MG/0.5 ML VIAL SQ STA (22:59)
[2022-10-20] MEDS ORDERED: LIDOCAINE 5% 1 PATCH TD STA (04:09)
[2022-10-20] MEDS: ACETAMINOPHEN 500 MG TAB PO PRN ×2 (04:42→11:24)
[2022-10-20] MEDS: KETOROLAC TROMETHAMINE 15 MG/ML VIAL IV PRN ×2 (04:42→11:23)
--- NOTE | 2022-10-20 05:47 | Electrocardiogram Report ---
Test Reason : Blood Pressure : / mmHG Vent. Rate : 116 BPM Atrial Rate : 116 BPM P-R Int : 162 ms QRS Dur : 118 ms QT Int : 312 ms P-R-T Axes : 064 080 020 degrees QTc Int : 433 ms Sinus tachycardia Incomplete right bundle branch block Borderline ECG When compared with ECG of 03-FEB-2020 20:25, Incomplete right bundle branch block is now Present Confirmed by Kishan Gaytan ([id number]) on 10/20/2022 5:47:30 AM Referred By: Mirtha Arellano Confirmed By:Kishan Gaytan
[2022-10-20] MEDS: FOLIC ACID 1 MG TAB PO SCH (09:00)
[2022-10-20] MEDS: lamoTRIgine 25 MG TAB PO SCH (09:00)
[2022-10-20] MEDS: CYANOCOBALAMIN (B-12) 100 MCG TABLET PO SCH (09:01)
[2022-10-20] MEDS: VENLAFAXINE HCL XR 150 MG CAPXR PO SCH (09:01)
[2022-10-20] MEDS: OXcarbazepine 150 MG TABLET PO SCH (09:02)
[2022-10-20] MEDS: ZONISAMIDE 100 MG CAPSULE PO SCH (09:02)
[2022-10-20] MEDS: SACCHAROMYCES BOULARDII 250 MG CAP PO SCH (09:02)
[2022-10-20] MEDS: PANTOprazole 40 MG TAB PO SCH (09:02)
[2022-10-20] MEDS: FLUTICASONE/VILANTEROL 100/25MCG 14 PUFFS/INHALER INH SCH (09:03)
[2022-10-20] MEDS: ONDANSETRON INJ 2 MG/ML 2 ML VIAL IV PRN (09:15)
[2022-10-20] MEDS: LACOSAMIDE 50 MG TABLET PO SCH (09:15)
[2022-10-20] MEDS ORDERED: DICLOFENAC SOD 1% GEL 100 GM TUBE EXT SCH (10:15)
[2022-10-20] MEDS ORDERED: LIDOCAINE 5% 1 PATCH TD SCH (10:15)
[2022-10-20] MEDS: hydrOXYzine HCl 25 MG TAB PO PRN (10:48)
--- NOTE | 2022-10-20 12:23 | Discharge Summary ---
Discharge Summary Date of Service October 20, 2022 Admission HPI Per Admitting Provider John is a 37-year-old female with a past medical history of epilepsy/PNES, intellectual disability, migraines, anxiety/depression, fibromyalgia, Crohn's disease, and restless leg syndrome who was seen in at [facility] for abdominal pain and seizure-like activity was suspected to have had seizure-like activity in the setting of abdominal pain and migraine. Her sensations of tingling had beetn previously captured on continuous monitoring unit with no EEG correlate/consistent with PNES and was thought to be related to her migraines. Per prior note review As Vimpat and Trileptal were both sodium channel agents Vimpat was continued at 200 mg twice daily, Zonegran changed to 300mg & w/ iuntention to continue wean as outpatient, Trileptal was to be discontinued, and she was started on lamotrigine 25 mg daily with plans to uptitrate. At [facility] 10/17/2022 evaluation she was noted to have a severe headache on 10/16 with tingling in the hands similar to prior. At that time she started on Trileptal the previous Tuesday, and was weaning Zonegran from 200-150. She was discharged and recommended to follow-up with [facility] neurology. Zonisamide was started to be weaned due to hx of kidney stones, no topamax Migraines have failed Imitrex, Maxalt, Nurtec in the past. Lamictal/Keppra with limited benefit in the past, keppra limited by mood/psych comorbidity Pt Also w/ hx of migraines improved on Aimovig, improved from 1215 down to about 5/month. Nurtec did not help triptans have not produced benefit. Past resting tremor with Abilify, this was noted to be tapered down from 30 mg but her depression worsened so she was continued 30 mg. MRI 05/2022: : There are no areas of restricted diffusion to suggest acute infarction. The midline structures are intact. Small fluid levels within the maxillary sinuses. The mastoid air cells are clear. The ventricles and sulci are within normal limits for age. There is no mass, hematoma, midline shift. The major vascular flow-voids at the skull base are well maintained. Postcontrast sequences show no areas of abnormal enhancement. The temporal lobes are symmetric. No evidence for cartwright matter heterotopia. She is seen in the ER with her parents present. She was in [place] last week for breakthrough seizures. After returning home had 5 seizures in a row, 2 in the ambulance, and 2 in th eER at [facility]. While in [place] they recommended that she did not reduce the Zonegran, and to slowly increase lamictal. Does not have any abortive medications at home. Seizures last 3-4 minutes. She also has a lot of anxiety after seizures. She has not had chest pain, chest pressure, shortness of breath, or difficulty breathing although sometimes she feels that her anxiety makes her breathing feel different. She denies prior lung/cardiac issues. Her sister had a blood clot while on oral contraceptive pill, John is currently on a progestin only pill and has never had a blood clot. She does not have inspiratory pain. She does endorse 1 week of feeling poorly with occasional chills. L flank pain 3-4 weeks. +dysuria on and off for 3- 4weeks. She has had trouble going to the bathroom (frequency and urgency with low volume voids). Per Family: Taking trileptal 150am / 300pm, was to stop but wanted to discuss with [facility] first Lamical not taking, has script but not taken 25mg yet Zonegram is taking 100mg BID, was supposed to go to 50 but held at 100mg BID due to seizures She is still taking vimpat 200mg BID For psycyh she is taking effexor 150mg XR BID, aripiprazole 30mg daily, mirtazepine 15mg HS Medical History: Reviewed Medications: Reviewed Surgical History: Reviewed Family history: Reviewed Allergies: Reviewed Social History: Reviewed Code Status: Full Admission Exam Per Admitting Provider General:Alert and oriented to name, place, and year. Answers questions appropriately and follows commands. No acute distress. No dysarthria. Neuro: Visual power full. Pupils equal and reactive to light. Extraocular movements intact. No diplopia. Hearing intact. Tongue protrudes midline. [employer] strength 5/5 bilaterally, ankle dorsiflexion/plantarflexion 5/5 with intact sensation of soft touch in the hands and feet and no asymmetry. No strength asymmetry. Dyskinesia of the tongue/lips is present. Pulm: CTAB A&P. -wheezes, -rales, -rhonchi. Symmetrical chest rise. No increased work of breathing. No respiratory distress. Cardiac: RRR, -mrg. Radial pulses intact and symmetrical. Abdominal: Nontender, nondistended, soft. BS present. Principal Dx & Hospital Course #1 = Principal Diagnosis (1) Seizure disorder: (2) Bipolar 1 disorder: (3) Dysuria: (4) History of nephrolithiasis: (5) MONIQUE (generalized anxiety disorder): (6) Fibromyalgia: (7) GERD (gastroesophageal reflux disease): (8) Headache: Plan Seizure disorder: Multiple Seizures in the recent past, has a history of both epileptic and nonepileptic seizures CThead unremarkable Lactate of 7.5 on admission consistent with recurrent seizures, normalized on recheck at time of admission Neurology on board and appreciate recommendations for medication changes as described below; has close follow-up with neurology in the next 2 weeks To continue as follows: Lacosamide 100 mg twice daily, lamotrigine 25 mg twice daily for 1 week followed by 50 mg twice daily thereafter, oxcarbazepine 300 mg twice daily, zonisamide 100 mg twice daily Bipolar 1 disorder: - Bipolar 1 disorder, generalized anxiety - Will continue trazodone, aripiprazole, mirtazepine, and effexor for underlying mood disorder. Trazodone dose decreased. Psych consulted for assistance with med management and possible reductions, generally recommend leaving decrease in doses to primary psychiatric provider, and did recommend mirtazapine or trazodone for sleep rather than both in the future Dysuria: Patient reports 2 to 3 weeks of dysuria intermittently with urgency She does have history of kidney stones, ultrasound and CT scan this month did not show evidence of stone/obstructive uropathy UA negative for UTI 1 fever following seizure, no photosensitivity/nuchal rigidity. Fever curve trended. Blood cultures negative to date History of nephrolithiasis: Recent left flank pain/dysuria; see below, do suspect this is MSK after evaluation Renal ultrasound 10/[address] scan 10/16/2022: No urolithiasis, obstructive uropathy noted. No hydro. Normal bladder. No acute findings of abdomen or pelvis - No leukocytosis Hemoglobin normal Electrolytes normal MONIQUE (generalized anxiety disorder): as noted GERD (gastroesophageal reflux disease): Continue home PPI Headache: - History of migraine, on erenumab monthly Patient does endorse a headache slightly different from her normal migraines on arrival, these are present with tenderness on the occiput suspect due to recurrent seizure activity and tension headache No nuchal rigidity or photosensitivity Continue Tylenol/ibuprofen on discharge at home as needed Patient has had minimal benefit with triptans in the past Discharge Exam Constitutional WD/WN, vitals as above Neurologic Mild tremor to hands, otherwise no focal neurologic deficits Psychiatric A+Ox3, euthymic affect Updated Medication List Medication Instructions Recorded Confirmed Type folic acid 1 mg tablet 1 mg PO QAM 12/04/19 10/18/22 History ondansetron 8 mg disintegrating 8 mg PO Q8H PRN Nausea 12/04/19 10/18/22 History tablet riboflavin (vitamin B2) 100 mg 100 mg PO DAILY 01/16/20 10/18/22 History tablet (Vitamin B-2) aripiprazole 30 mg tablet 30 mg PO QPM 04/02/22 10/18/22 History erenumab-aooe 140 mg/mL 140 mg subcut MONTHLY 04/02/22 10/18/22 History subcutaneous auto-injector norethindrone (contraceptive) 0.35 0.35 mg PO DAILY 04/02/22 10/18/22 History mg tablet (Amy) Saccharomyces boulardii 250 mg 250 mg PO DAILY 10/18/22 10/18/22 History capsule (Florastor) acetaminophen 500 mg tablet 1,000 mg PO Q6H PRN Pain 10/18/22 10/18/22 History (Tylenol Extra Strength) albuterol sulfate 90 mcg/actuation 2 inh inhalation Q4H PRN Shortness 10/18/22 10/18/22 History breath activated powder inhaler Of Breath Or Wheezing (ProAir RespiClick) budesonide-formoterol HFA 160 2 puff inhalation BID 10/18/22 10/18/22 History mcg-4.5 mcg/actuation aerosol inhaler (Symbicort) cyanocobalamin (vitamin B-12) 100 100 mcg PO DAILY 10/18/22 10/18/22 History mcg tablet (Vitamin B-12) diclofenac sodium 1 % topical gel 4 g topical QID PRN LOWER BACK PAIN 10/18/22 10/18/22 History hydroxyzine HCl 25 mg tablet 25 mg PO TID PRN Anxiety 10/18/22 10/18/22 History ibuprofen 600 mg tablet 600 mg PO Q6H PRN Pain 10/18/22 10/18/22 History lansoprazole 30 mg capsule,delayed 30 mg PO DAILY 10/18/22 10/18/22 History release (Prevacid) linaclotide 290 mcg capsule 290 mcg PO QAM 10/18/22 10/18/22 History (Linzess) magnesium gluconate 27 mg 27 mg PO DAILY 10/18/22 10/18/22 History magnesium (500 mg) tablet mirtazapine 15 mg tablet (Remeron) 15 mg PO HS 10/18/22 10/18/22 History vit no.95-ferrous 1 tab PO DAILY 10/18/22 10/18/22 History fumarate 28 mg-folic acid 800 mcg tablet () sennosides 8.6 mg tablet (senna) 17.2 mg PO DAILY PRN Constipation 10/18/22 10/18/22 History lacosamide 50 mg tablet (Vimpat) 100 mg PO BID 30 days #120 tabs 10/20/22 Rx lamotrigine 100 mg tablet 50 mg PO BID 30 days #30 tabs 10/20/22 Rx lamotrigine 25 mg tablet (Lamictal) 25 mg PO BID 5 days #10 tabs 10/20/22 Rx oxcarbazepine 150 mg tablet 300 mg PO BID #60 tabs 10/20/22 Rx (Trileptal) trazodone 100 mg tablet 50 mg PO HS 30 days #15 tabs 10/20/22 Rx venlafaxine 150 mg 150 mg PO DAILY #30 caps 10/20/22 10/18/22 Rx capsule,extended release 24 hr (Effexor XR) zonisamide 100 mg capsule 100 mg PO BID #60 caps 10/20/22 10/18/22 Rx Hospital Stay Data Consultations 10/18/22 16:30 ED Decision to Admit Stat 10/18/22 17:46 Consult Psychiatry Routine 10/19/22 09:00 Consult Neurology Routine Diagnostic Imagining Performed 10/18/22 13:31 CT angio head w con Stat CT angio neck with con Stat CT head/brain wo con Stat Pending Results Patient Have Any Pending Studies at Discharge: No Discharge Instructions Given to Patient (Per Discharging Provider) You were admitted for evaluation and management of seizures. You had several medication changes this admission, please see the attached list as your new "master" list with all of your medications on discharge. These doses have been confirmed, and new doses sent, to your pharmacy. Please take this medication list to all future appointments. We recommend follow up with Neurology and Psychiatry in the near future for continued adjustment of these medications. You have been seizure free on these medicines in the hospital. Please see your list below for some new medications and some adjustments in doses of your old medications. These changes were made after talking with Dr. Crowe and Psychiatry in the hospital. To clarify, you will take the lamotrigine 25 mg twice daily until that short prescription is gone, then start the 50 mg twice daily dose. Total Time Total Time Spent Total Time Spent (In Minutes): 40 minutes Coding Level of Care Code 85466 INP/OBS DISCH >30 MIN Diagnoses Seizure disorder G40.909 Bipolar 1 disorder F31.9 Dysuria R30.0 History of nephrolithiasis Z87.442 MONIQUE (generalized anxiety disorder) F41.1 Fibromyalgia M79.7 GERD (gastroesophageal reflux disease) K21.9 Headache R51
== END 2022-10-20 14:40 | disposition home or self-care (01) | DRG 101 ==
LOC: ED 13:08 → 2S 17:15 → SUATTDRO 17:15 → 2S 18:14